=== PATIENT | male | born 1970 | race Hispanic/Latino ===

== ENCOUNTER 2021-05-11 14:50 | Inpatient (IN) | payer BC ==
[~2021-05-11] VITALS: Ht 165.1 cm; Wt 124.7 kg
[2021-05-11 15:08] VITALS: BP 142/65
[2021-05-11 15:17] LABS: BASOPHILS % (AUTO) 0.2 % (0.0-5.0); EOSINOPHILS % (AUTO) 0.6 % (0.0-8.0); HEMATOCRIT 36.7 % (42-54); MEAN CORPUSCULAR HEMOGLOBIN 27.7 pg (27.0-33.0); MEAN CORPUSCULAR HGB CONC 33.5 g/dL (32.0-36.0); MEAN CORPUSCULAR VOLUME 82.7 fL (79-99); MONOCYTES % (AUTO) 9.4 % (3.0-13.0); NUCLEATED RED BLOOD CELLS 0.4 % (0.0-0.19); PLATELET COUNT (AUTO) 335 K/uL (130-400); RED BLOOD CELL COUNT(AUTO) 4.44 MIL/uL (4.50-6.20); RED CELL DISTRIBUTION WIDTH 13.2 % (11.0-15.5); WHITE BLOOD COUNT (AUTO) 12.9 K/uL (4.8-10.8)
[2021-05-11 15:39] LABS: ALBUMIN 2.9 g/dL (3.5-5.0); BILIRUBIN,DIRECT 0.1 mg/dL (0.0-0.3); BILIRUBIN,TOTAL 0.4 mg/dL (0.2-1.0); CREATININE 1.9 mg/dL (0.5-1.5); CRP QUANTITATIVE 137.2 mg/L (0.00-9.0); POTASSIUM 4.3 mmol/L (3.5-5.1); TOTAL PROTEIN, SERUM 7.4 g/dL (6.0-8.3)
[2021-05-11 16:25] LABS: ABG BASE EXCESS -0.9 mmol/L (-2.0-3.0); ABG HCO3 23.1 mmol/L (21.0-28.0); ABG OXYGEN SATURATION 98.6 % (95.0-99.0); ABG PCO2 36 mmHg (35-48)
[2021-05-11] MEDS ORDERED: ALBUTEROL INHALER 90MCG/INH IH PRN (16:30)
[2021-05-11 16:31] LABS: ERYTHROCYTE SEDIMENTATION RATE 75 MM/HR (0-20)
[2021-05-11] MEDS ORDERED: 0.9% NACL 250ML IV ONE (17:00)
[2021-05-11] MEDS ORDERED: PIP/TAZ ZOSYN 3.375G 3.375 GM VIAL IVPB ONE (17:00)
[2021-05-11] MEDS ORDERED: DOXYCYCLINE 100MG IVPB (VIAL) IVPB ONE (17:00)
[2021-05-11] MEDS ORDERED: ZOSYN 3.375GM+NS 50ML 50 ML IV ONE (17:03)
[2021-05-11] MEDS ORDERED: DOXYCYCLINE 100MG+NS 250ML 250 ML IV ONE (17:04)
[2021-05-11 17:18] VITALS: BP 136/78
[2021-05-11] MEDS ORDERED: INSULIN GLARGINE 100 UNITS/ML 10 ML VIAL SQ ONE (18:00)
[2021-05-11] MEDS ORDERED: RENAL DOSE IV SCH (18:00)
[2021-05-11 18:54] LABS: CREATININE,URINE RANDOM 87 mg/dL (30-135); SODIUM,URINE RANDOM 31 mmol/l (40-220)
[2021-05-11 21:12] VITALS: BP 153/98
[2021-05-11] MEDS: INSULIN HUMULIN R 100 UNIT/ML 3ML SQ SCH (22:46)
[2021-05-11 22:47] VITALS: BP 147/92
[2021-05-11] MEDS: HEPARIN 5,000 UNIT VIAL SQ SCH (22:47)
[2021-05-11 23:01] LABS: AMPHET/METH SCREEN,URINE NEGATIVE (NEGATIVE); BARBITURATE SCREEN, URINE NEGATIVE (NEGATIVE); BENZODIAZEPINES SCREEN,URINE NEGATIVE (NEGATIVE); CANNABINOID SCREEN,URINE NEGATIVE (NEGATIVE); COCAINE SCREEN,URINE NEGATIVE (NEGATIVE); OPIATE SCREEN,URINE NEGATIVE (NEGATIVE); PHENCYCLIDINE SCREEN,URINE NEGATIVE (NEGATIVE)
[2021-05-12] VITALS (12 sets, daily range): BP systolic 125–162; BP diastolic 65–93
[2021-05-12] MEDS: INSULIN HUMULIN R 100 UNIT/ML 3ML SQ SCH ×4 (00:45→19:46)
[2021-05-12] MEDS: DOXYCYCLINE 100MG+NS 250ML IV SCH ×2 (06:26→19:43)
[2021-05-12] MEDS: 0.9% NACL 250ML IVPB SCH ×2 (06:26→19:43)
[2021-05-12] MEDS: INSULIN GLARGINE 100 UNITS/ML 10 ML VIAL SQ SCH (08:22)
[2021-05-12] MEDS: HEPARIN 5,000 UNIT VIAL SQ SCH (08:22)
[2021-05-12 09:21] LABS: BASOPHILS % (AUTO) 0.2 % (0.0-5.0); EOSINOPHILS % (AUTO) 0.1 % (0.0-8.0); HEMATOCRIT 38.6 % (42-54); LYMPHOCYTES % (AUTO) 5.8 % (21.0-51.0); MEAN CORPUSCULAR HEMOGLOBIN 27.6 pg (27.0-33.0); MEAN CORPUSCULAR HGB CONC 32.9 g/dL (32.0-36.0); MEAN CORPUSCULAR VOLUME 83.9 fL (79-99); MONOCYTES % (AUTO) 7.7 % (3.0-13.0); NEUTROPHILS % (AUTO) 84.2 % (40.0-77.0); NUCLEATED RED BLOOD CELLS 0.4 % (0.0-0.19); PLATELET COUNT (AUTO) 366 K/uL (130-400); RED CELL DISTRIBUTION WIDTH 13.2 % (11.0-15.5); WHITE BLOOD COUNT (AUTO) 12.3 K/uL (4.8-10.8)
[2021-05-12 09:49] LABS: CREATININE 1.5 mg/dL (0.5-1.5); CRP QUANTITATIVE 155.8 mg/L (0.00-9.0)
[2021-05-12 09:52] LABS: POTASSIUM 3.8 mmol/L (3.5-5.1)
[2021-05-12] MEDS ORDERED: HEPARIN 5,000 UNIT VIAL SQ SCH (11:00)
[2021-05-12] MEDS ORDERED: PHARMACY COMMUNICATION MISC SCH (11:00)
[2021-05-12] MEDS ORDERED: [UNRECOGNIZED DRUG - REMARK] MISC SCH (11:00)
[2021-05-12 11:09] LABS: HEMOGLOBIN A1C 12.6 % (4.0-6.0)
[2021-05-12] MEDS ORDERED: COMPOUND IV REFRIGERATED 1 EACH IVSOLN MISC PRN (11:30)
[2021-05-12] MEDS: DEXAMETHASONE SOD PHOSPHATE 4 MG/ML 1ML VIAL IV SCH ×2 (12:13→20:32)
[2021-05-12] MEDS: BARICITINIB (EUA) 2 MG TABLET PO SCH (12:13)
[2021-05-12] MEDS ORDERED: REMDESIVIR (EUA) 520 200 MG in 0.9% NACL 250ML 250 ML IV SCH (13:00)
[2021-05-12] MEDS ORDERED: AMLO-258 PO (18:49)
[2021-05-12] MEDS ORDERED: SITA100T12 PO (18:49)
[2021-05-12] MEDS ORDERED: METF-444 PO (19:21)
[2021-05-12] MEDS ORDERED: AEC81 PO (19:23)
[2021-05-12] MEDS ORDERED: ROSU10TA28 PO (19:25)
[2021-05-12] MEDS ORDERED: HYDR-4154 PO (19:26)
[2021-05-12] MEDS ORDERED: ZINC220C6 PO (19:28)
[2021-05-13] VITALS (25 sets, daily range): BP systolic 116–147; BP diastolic 64–96
[2021-05-13] MEDS: INSULIN HUMULIN R 100 UNIT/ML 3ML SQ SCH ×5 (00:58→16:58)
[2021-05-13 04:45] LABS: BASOPHILS % (AUTO) 0.1 % (0.0-5.0); HEMATOCRIT 38.2 % (42-54); LYMPHOCYTES % (AUTO) 9.1 % (21.0-51.0); MEAN CORPUSCULAR HEMOGLOBIN 27.2 pg (27.0-33.0); MEAN CORPUSCULAR VOLUME 82.5 fL (79-99); MONOCYTES % (AUTO) 5.9 % (3.0-13.0); NEUTROPHILS % (AUTO) 81.5 % (40.0-77.0); PLATELET COUNT (AUTO) 395 K/uL (130-400); RED BLOOD CELL COUNT(AUTO) 4.63 MIL/uL (4.50-6.20); RED CELL DISTRIBUTION WIDTH 13.2 % (11.0-15.5); WHITE BLOOD COUNT (AUTO) 7.3 K/uL (4.8-10.8)
[2021-05-13 04:59] LABS: ALBUMIN 2.7 g/dL (3.5-5.0); BILIRUBIN,TOTAL 0.6 mg/dL (0.2-1.0); CREATININE 1.4 mg/dL (0.5-1.5); CRP QUANTITATIVE 368.8 mg/L (0.00-9.0); POTASSIUM 4.2 mmol/L (3.5-5.1); TOTAL PROTEIN, SERUM 7.3 g/dL (6.0-8.3)
[2021-05-13] MEDS: 0.9% NACL 250ML IVPB SCH ×2 (05:04→16:58)
[2021-05-13] MEDS: DOXYCYCLINE 100MG+NS 250ML IV SCH ×2 (05:04→16:58)
[2021-05-13] MEDS: REMDESIVIR LABS MISC SCH (05:05)
[2021-05-13] MEDS: DEXAMETHASONE SOD PHOSPHATE 4 MG/ML 1ML VIAL IV SCH ×2 (08:14→20:47)
[2021-05-13] MEDS: BARICITINIB (EUA) 2 MG TABLET PO SCH (08:14)
[2021-05-13] MEDS: ENOXAPARIN SODIUM 60 MG/0.6 ML SQ SCH (08:15)
[2021-05-13] MEDS: INSULIN GLARGINE 100 UNITS/ML 10 ML VIAL SQ SCH (08:16)
[2021-05-13] MEDS ORDERED: FUROSEMIDE 20MG VIAL IV ONE (11:55)
[2021-05-13] MEDS: REMDESIVIR (EUA) 520 100 MG in 0.9% NACL 250ML 250 ML IV SCH (12:31)
[2021-05-13] MEDS ORDERED: NACL NASAL SPRAY 120 SPRAY/BOTTLE NS PRN (14:30)
[2021-05-14] VITALS (24 sets, daily range): BP systolic 109–144; BP diastolic 58–92
[2021-05-14] MEDS: INSULIN HUMULIN R 100 UNIT/ML 3ML SQ SCH ×5 (05:53→22:15)
[2021-05-14] MEDS: 0.9% NACL 250ML IVPB SCH ×2 (05:55→17:10)
[2021-05-14] MEDS: DOXYCYCLINE 100MG+NS 250ML IV SCH ×2 (05:55→17:10)
[2021-05-14] MEDS: REMDESIVIR LABS MISC SCH (06:00)
[2021-05-14 07:02] LABS: BASOPHILS % (AUTO) 0.1 % (0.0-5.0); LYMPHOCYTES % (AUTO) 6.8 % (21.0-51.0); MEAN CORPUSCULAR HGB CONC 32.2 g/dL (32.0-36.0); MEAN CORPUSCULAR VOLUME 84.1 fL (79-99); MONOCYTES % (AUTO) 8.9 % (3.0-13.0); NEUTROPHILS % (AUTO) 82.3 % (40.0-77.0); PLATELET COUNT (AUTO) 342 K/uL (130-400); RED CELL DISTRIBUTION WIDTH 13.4 % (11.0-15.5); WHITE BLOOD COUNT (AUTO) 10.1 K/uL (4.8-10.8)
[2021-05-14 07:17] LABS: ALBUMIN 2.5 g/dL (3.5-5.0); BILIRUBIN,TOTAL 0.6 mg/dL (0.2-1.0); CREATININE 1.4 mg/dL (0.5-1.5); CRP QUANTITATIVE 107.7 mg/L (0.00-9.0); POTASSIUM 4.1 mmol/L (3.5-5.1); TOTAL PROTEIN, SERUM 6.7 g/dL (6.0-8.3)
[2021-05-14] MEDS: BARICITINIB (EUA) 2 MG TABLET PO SCH (08:08)
[2021-05-14] MEDS: DEXAMETHASONE SOD PHOSPHATE 4 MG/ML 1ML VIAL IV SCH ×2 (08:08→22:09)
[2021-05-14] MEDS: ENOXAPARIN SODIUM 60 MG/0.6 ML SQ SCH (08:09)
[2021-05-14] MEDS: INSULIN GLARGINE 100 UNITS/ML 10 ML VIAL SQ SCH (08:11)
[2021-05-14] MEDS ORDERED: LACTULOSE 20 GM/30 ML UDCUP PO PRN (13:00)
[2021-05-14] MEDS: REMDESIVIR (EUA) 520 100 MG in 0.9% NACL 250ML 250 ML IV SCH (13:11)
[2021-05-14] MEDS: ENOXAPARIN SODIUM 100 MG/1 ML SQ SCH (22:08)
[2021-05-15] VITALS (22 sets, daily range): BP systolic 109–167; BP diastolic 61–96
[2021-05-15 05:21] LABS: BASOPHILS % (AUTO) 0.1 % (0.0-5.0); HEMATOCRIT 35.4 % (42-54); LYMPHOCYTES % (AUTO) 4.4 % (21.0-51.0); MEAN CORPUSCULAR HEMOGLOBIN 27.3 pg (27.0-33.0); MEAN CORPUSCULAR HGB CONC 32.2 g/dL (32.0-36.0); MEAN CORPUSCULAR VOLUME 84.7 fL (79-99); MONOCYTES % (AUTO) 7.8 % (3.0-13.0); NEUTROPHILS % (AUTO) 86.1 % (40.0-77.0); PLATELET COUNT (AUTO) 319 K/uL (130-400); RED BLOOD CELL COUNT(AUTO) 4.18 MIL/uL (4.50-6.20); RED CELL DISTRIBUTION WIDTH 13.1 % (11.0-15.5); WHITE BLOOD COUNT (AUTO) 11.1 K/uL (4.8-10.8)
[2021-05-15 05:38] LABS: ALBUMIN 2.4 g/dL (3.5-5.0); BILIRUBIN,TOTAL 0.6 mg/dL (0.2-1.0); CREATININE 1.2 mg/dL (0.5-1.5); CRP QUANTITATIVE 52.9 mg/L (0.00-9.0); POTASSIUM 4.2 mmol/L (3.5-5.1); TOTAL PROTEIN, SERUM 6.2 g/dL (6.0-8.3)
[2021-05-15] MEDS: INSULIN HUMULIN R 100 UNIT/ML 3ML SQ SCH ×4 (06:02→20:37)
[2021-05-15] MEDS: DOXYCYCLINE 100MG+NS 250ML IV SCH ×2 (06:02→17:07)
[2021-05-15] MEDS: 0.9% NACL 250ML IVPB SCH ×2 (06:03→17:07)
[2021-05-15] MEDS: DEXAMETHASONE SOD PHOSPHATE 4 MG/ML 1ML VIAL IV SCH ×2 (08:21→20:34)
[2021-05-15] MEDS: BARICITINIB (EUA) 2 MG TABLET PO SCH (08:21)
[2021-05-15] MEDS: ENOXAPARIN SODIUM 100 MG/1 ML SQ SCH ×2 (08:21→20:35)
[2021-05-15] MEDS: INSULIN GLARGINE 100 UNITS/ML 10 ML VIAL SQ SCH (08:44)
[2021-05-15] MEDS ORDERED: LACTULOSE 20 GM/30 ML UDCUP PO SCH (09:00)
[2021-05-15] MEDS: REMDESIVIR LABS MISC SCH (14:00)
[2021-05-15] MEDS: REMDESIVIR (EUA) 520 100 MG in 0.9% NACL 250ML 250 ML IV SCH (14:21)
[2021-05-16] VITALS (23 sets, daily range): BP systolic 129–178; BP diastolic 67–97
[2021-05-16 04:55] LABS: BASOPHILS % (AUTO) 0.2 % (0.0-5.0); LYMPHOCYTES % (AUTO) 2.9 % (21.0-51.0); MEAN CORPUSCULAR HEMOGLOBIN 27.2 pg (27.0-33.0); MEAN CORPUSCULAR HGB CONC 32.4 g/dL (32.0-36.0); MEAN CORPUSCULAR VOLUME 84.1 fL (79-99); MONOCYTES % (AUTO) 7.4 % (3.0-13.0); NEUTROPHILS % (AUTO) 88.4 % (40.0-77.0); PLATELET COUNT (AUTO) 334 K/uL (130-400); RED BLOOD CELL COUNT(AUTO) 4.52 MIL/uL (4.50-6.20); RED CELL DISTRIBUTION WIDTH 13.2 % (11.0-15.5); WHITE BLOOD COUNT (AUTO) 13.2 K/uL (4.8-10.8)
[2021-05-16 05:17] LABS: ALBUMIN 2.5 g/dL (3.5-5.0); BILIRUBIN,TOTAL 0.7 mg/dL (0.2-1.0); CREATININE 1.1 mg/dL (0.5-1.5); POTASSIUM 4.3 mmol/L (3.5-5.1); TOTAL PROTEIN, SERUM 6.4 g/dL (6.0-8.3)
[2021-05-16] MEDS: 0.9% NACL 250ML IVPB SCH ×2 (06:25→17:42)
[2021-05-16] MEDS: DOXYCYCLINE 100MG+NS 250ML IV SCH ×2 (06:25→17:42)
[2021-05-16] MEDS: INSULIN HUMULIN R 100 UNIT/ML 3ML SQ SCH ×4 (06:26→20:27)
[2021-05-16] MEDS: REMDESIVIR LABS MISC SCH (06:26)
[2021-05-16] MEDS: BARICITINIB (EUA) 2 MG TABLET PO SCH (08:20)
[2021-05-16] MEDS: DEXAMETHASONE SOD PHOSPHATE 4 MG/ML 1ML VIAL IV SCH (08:20)
[2021-05-16] MEDS: ENOXAPARIN SODIUM 100 MG/1 ML SQ SCH ×2 (08:20→19:59)
[2021-05-16] MEDS: INSULIN GLARGINE 100 UNITS/ML 10 ML VIAL SQ SCH (08:35)
[2021-05-16] MEDS: REMDESIVIR (EUA) 520 100 MG in 0.9% NACL 250ML 250 ML IV SCH (13:34)
[2021-05-17] VITALS (24 sets, daily range): BP systolic 128–166; BP diastolic 52–112
[2021-05-17 04:58] LABS: BASOPHILS % (AUTO) 0.1 % (0.0-5.0); EOSINOPHILS % (AUTO) 0.6 % (0.0-8.0); HEMATOCRIT 38.7 % (42-54); LYMPHOCYTES % (AUTO) 3.1 % (21.0-51.0); MEAN CORPUSCULAR HEMOGLOBIN 27.4 pg (27.0-33.0); MEAN CORPUSCULAR HGB CONC 33.3 g/dL (32.0-36.0); MEAN CORPUSCULAR VOLUME 82.2 fL (79-99); MONOCYTES % (AUTO) 4.5 % (3.0-13.0); NEUTROPHILS % (AUTO) 90.6 % (40.0-77.0); PLATELET COUNT (AUTO) 305 K/uL (130-400); RED BLOOD CELL COUNT(AUTO) 4.71 MIL/uL (4.50-6.20); RED CELL DISTRIBUTION WIDTH 13.1 % (11.0-15.5); WHITE BLOOD COUNT (AUTO) 16.2 K/uL (4.8-10.8)
[2021-05-17 05:17] LABS: ALBUMIN 2.5 g/dL (3.5-5.0); BILIRUBIN,TOTAL 0.7 mg/dL (0.2-1.0); CRP QUANTITATIVE 64.7 mg/L (0.00-9.0); POTASSIUM 3.7 mmol/L (3.5-5.1); TOTAL PROTEIN, SERUM 6.5 g/dL (6.0-8.3)
[2021-05-17] MEDS: INSULIN HUMULIN R 100 UNIT/ML 3ML SQ SCH ×4 (05:58→21:10)
[2021-05-17] MEDS: 0.9% NACL 250ML IVPB SCH ×2 (05:58→17:13)
[2021-05-17] MEDS: DOXYCYCLINE 100MG+NS 250ML IV SCH ×2 (05:58→17:12)
[2021-05-17] MEDS: BARICITINIB (EUA) 2 MG TABLET PO SCH (09:00)
[2021-05-17] MEDS: INSULIN GLARGINE 100 UNITS/ML 10 ML VIAL SQ SCH (09:00)
[2021-05-17] MEDS: DEXAMETHASONE SOD PHOSPHATE 4 MG/ML 1ML VIAL IV SCH (09:00)
[2021-05-17] MEDS: ENOXAPARIN SODIUM 100 MG/1 ML SQ SCH ×2 (09:00→21:10)
[2021-05-17] MEDS: GUAIFENESIN-CODEINE 5 ML SYRUP PO PRN (21:09)
[2021-05-18] VITALS (24 sets, daily range): BP systolic 111–158; BP diastolic 64–99
[2021-05-18 05:06] LABS: BASOPHILS % (AUTO) 0.1 % (0.0-5.0); HEMATOCRIT 38.6 % (42-54); LYMPHOCYTES % (AUTO) 6.6 % (21.0-51.0); MEAN CORPUSCULAR HEMOGLOBIN 27.6 pg (27.0-33.0); MEAN CORPUSCULAR HGB CONC 33.2 g/dL (32.0-36.0); MEAN CORPUSCULAR VOLUME 83.2 fL (79-99); MONOCYTES % (AUTO) 4.3 % (3.0-13.0); PLATELET COUNT (AUTO) 276 K/uL (130-400); RED BLOOD CELL COUNT(AUTO) 4.64 MIL/uL (4.50-6.20); RED CELL DISTRIBUTION WIDTH 13.4 % (11.0-15.5)
[2021-05-18 05:27] LABS: ALBUMIN 2.2 g/dL (3.5-5.0); POTASSIUM 3.9 mmol/L (3.5-5.1); TOTAL PROTEIN, SERUM 6.3 g/dL (6.0-8.3)
[2021-05-18] MEDS: 0.9% NACL 250ML IVPB SCH ×2 (05:43→17:18)
[2021-05-18] MEDS: DOXYCYCLINE 100MG+NS 250ML IV SCH (05:43)
[2021-05-18 05:46] LABS: CRP QUANTITATIVE 202.1 mg/L (0.00-9.0)
[2021-05-18] MEDS: INSULIN HUMULIN R 100 UNIT/ML 3ML SQ SCH ×4 (06:03→20:33)
[2021-05-18] MEDS: DEXAMETHASONE SOD PHOSPHATE 4 MG/ML 1ML VIAL IV SCH (09:10)
[2021-05-18] MEDS: BARICITINIB (EUA) 2 MG TABLET PO SCH (09:10)
[2021-05-18] MEDS: ENOXAPARIN SODIUM 100 MG/1 ML SQ SCH ×2 (09:10→19:54)
[2021-05-18] MEDS: INSULIN GLARGINE 100 UNITS/ML 10 ML VIAL SQ SCH (09:12)
[2021-05-18] MEDS ORDERED: PHARMACY COMMUNICATION MISC SCH (15:30)
[2021-05-18] MEDS: LINEZOLID 600 MG/ISO-OSM 300 ML IV SCH (15:56)
[2021-05-18] MEDS: MEROPENEM 1 GM VIAL IVP SCH (15:56)
[2021-05-18] MEDS: REMDESIVIR (EUA) 520 100 MG in 0.9% NACL 250ML 250 ML IV SCH (17:17)
[2021-05-18] MEDS: GUAIFENESIN-CODEINE 5 ML SYRUP PO PRN (19:54)
[2021-05-18] MEDS: SOLU-MEDROL 40MG VIAL IVP SCH (19:54)
[2021-05-19] VITALS (24 sets, daily range): BP systolic 132–168; BP diastolic 56–107
[2021-05-19] MEDS: LINEZOLID 600 MG/ISO-OSM 300 ML IV SCH ×2 (04:05→15:07)
[2021-05-19] MEDS: MEROPENEM 1 GM VIAL IVP SCH ×2 (04:05→15:07)
[2021-05-19 05:11] LABS: BASOPHILS % (AUTO) 0.2 % (0.0-5.0); HEMATOCRIT 36.7 % (42-54); LYMPHOCYTES % (AUTO) 2.7 % (21.0-51.0); MEAN CORPUSCULAR HEMOGLOBIN 27.6 pg (27.0-33.0); MEAN CORPUSCULAR VOLUME 83.8 fL (79-99); MONOCYTES % (AUTO) 3.6 % (3.0-13.0); NEUTROPHILS % (AUTO) 92.6 % (40.0-77.0); PLATELET COUNT (AUTO) 301 K/uL (130-400); RED BLOOD CELL COUNT(AUTO) 4.38 MIL/uL (4.50-6.20); RED CELL DISTRIBUTION WIDTH 13.3 % (11.0-15.5); WHITE BLOOD COUNT (AUTO) 18.5 K/uL (4.8-10.8)
[2021-05-19 05:29] LABS: ALBUMIN 2.1 g/dL (3.5-5.0); BILIRUBIN,TOTAL 0.7 mg/dL (0.2-1.0); CREATININE 1.2 mg/dL (0.5-1.5); CRP QUANTITATIVE 144.9 mg/L (0.00-9.0); POTASSIUM 4.4 mmol/L (3.5-5.1)
[2021-05-19] MEDS: 0.9% NACL 250ML IVPB SCH ×2 (06:00→18:00)
[2021-05-19] MEDS: INSULIN HUMULIN R 100 UNIT/ML 3ML SQ SCH ×8 (06:25→22:32)
[2021-05-19] MEDS: ENOXAPARIN SODIUM 100 MG/1 ML SQ SCH ×2 (09:19→22:29)
[2021-05-19] MEDS: SOLU-MEDROL 40MG VIAL IVP SCH ×2 (09:19→22:28)
[2021-05-19] MEDS: BARICITINIB (EUA) 2 MG TABLET PO SCH (09:19)
[2021-05-19] MEDS: REMDESIVIR (EUA) 520 100 MG in 0.9% NACL 250ML 250 ML IV SCH (15:31)
[2021-05-19] MEDS: GUAIFENESIN-CODEINE 5 ML SYRUP PO PRN ×2 (18:24→22:35)
[2021-05-19] MEDS: INSULIN GLARGINE 100 UNITS/ML 10 ML VIAL SQ SCH (22:31)
[2021-05-20] VITALS (13 sets, daily range): BP systolic 132–173; BP diastolic 60–110
[2021-05-20] MEDS: MEROPENEM 1 GM VIAL IVP SCH ×2 (02:51→15:16)
[2021-05-20] MEDS: LINEZOLID 600 MG/ISO-OSM 300 ML IV SCH ×2 (02:51→15:16)
[2021-05-20 04:40] LABS: BASOPHILS % (AUTO) 0.1 % (0.0-5.0); HEMATOCRIT 34.1 % (42-54); LYMPHOCYTES % (AUTO) 2.6 % (21.0-51.0); MEAN CORPUSCULAR HEMOGLOBIN 27.8 pg (27.0-33.0); MEAN CORPUSCULAR HGB CONC 33.4 g/dL (32.0-36.0); MEAN CORPUSCULAR VOLUME 83.2 fL (79-99); MONOCYTES % (AUTO) 4.2 % (3.0-13.0); NEUTROPHILS % (AUTO) 91.9 % (40.0-77.0); PLATELET COUNT (AUTO) 302 K/uL (130-400); RED CELL DISTRIBUTION WIDTH 13.4 % (11.0-15.5); WHITE BLOOD COUNT (AUTO) 18.4 K/uL (4.8-10.8)
[2021-05-20 05:30] LABS: ALBUMIN 2.1 g/dL (3.5-5.0); BILIRUBIN,TOTAL 0.6 mg/dL (0.2-1.0); CREATININE 1.2 mg/dL (0.5-1.5); POTASSIUM 4.2 mmol/L (3.5-5.1); TOTAL PROTEIN, SERUM 5.9 g/dL (6.0-8.3)
[2021-05-20] MEDS: 0.9% NACL 250ML IVPB SCH ×2 (06:00→17:42)
[2021-05-20] MEDS: INSULIN HUMULIN R 100 UNIT/ML 3ML SQ SCH ×7 (06:08→21:00)
[2021-05-20] MEDS: BARICITINIB (EUA) 2 MG TABLET PO SCH (10:41)
[2021-05-20] MEDS: SOLU-MEDROL 40MG VIAL IVP SCH ×2 (10:41→21:33)
[2021-05-20] MEDS: ENOXAPARIN SODIUM 100 MG/1 ML SQ SCH ×2 (10:42→21:32)
[2021-05-20] MEDS ORDERED: DEXMEDETOMIDINE HCL 400 MCG in 0.9%NACL 100ML 100 ML IV SCH (13:00)
[2021-05-20] MEDS: REMDESIVIR (EUA) 520 100 MG in 0.9% NACL 250ML 250 ML IV SCH (17:31)
[2021-05-20] MEDS: GUAIFENESIN-CODEINE 5 ML SYRUP PO PRN (21:31)
[2021-05-20] MEDS: INSULIN GLARGINE 100 UNITS/ML 10 ML VIAL SQ SCH (21:33)
[2021-05-21] VITALS (22 sets, daily range): BP systolic 145–196; BP diastolic 69–114
[2021-05-21] MEDS: LINEZOLID 600 MG/ISO-OSM 300 ML IV SCH ×2 (02:27→15:21)
[2021-05-21] MEDS: MEROPENEM 1 GM VIAL IVP SCH ×2 (02:29→15:21)
[2021-05-21] MEDS: GUAIFENESIN-CODEINE 5 ML SYRUP PO PRN ×2 (02:39→23:11)
[2021-05-21 05:39] LABS: BASOPHILS % (AUTO) 0.2 % (0.0-5.0); HEMATOCRIT 35.7 % (42-54); LYMPHOCYTES % (AUTO) 2.8 % (21.0-51.0); MEAN CORPUSCULAR HEMOGLOBIN 27.8 pg (27.0-33.0); MEAN CORPUSCULAR HGB CONC 33.3 g/dL (32.0-36.0); MEAN CORPUSCULAR VOLUME 83.4 fL (79-99); MONOCYTES % (AUTO) 5.4 % (3.0-13.0); NEUTROPHILS % (AUTO) 90.5 % (40.0-77.0); PLATELET COUNT (AUTO) 291 K/uL (130-400); RED BLOOD CELL COUNT(AUTO) 4.28 MIL/uL (4.50-6.20); RED CELL DISTRIBUTION WIDTH 13.3 % (11.0-15.5); WHITE BLOOD COUNT (AUTO) 19.3 K/uL (4.8-10.8)
[2021-05-21] MEDS: 0.9% NACL 250ML IVPB SCH ×2 (06:00→17:30)
[2021-05-21 06:01] LABS: ALBUMIN 2.2 g/dL (3.5-5.0); BILIRUBIN,TOTAL 0.6 mg/dL (0.2-1.0); CREATININE 1.1 mg/dL (0.5-1.5); CRP QUANTITATIVE 44.8 mg/L (0.00-9.0); POTASSIUM 4.7 mmol/L (3.5-5.1)
[2021-05-21] MEDS: INSULIN HUMULIN R 100 UNIT/ML 3ML SQ SCH ×7 (06:27→21:05)
[2021-05-21] MEDS: BARICITINIB (EUA) 2 MG TABLET PO SCH (09:15)
[2021-05-21] MEDS: SOLU-MEDROL 40MG VIAL IVP SCH ×2 (09:16→21:06)
[2021-05-21] MEDS: ENOXAPARIN SODIUM 100 MG/1 ML SQ SCH ×2 (09:16→21:06)
[2021-05-21] MEDS: REMDESIVIR (EUA) 520 100 MG in 0.9% NACL 250ML 250 ML IV SCH (15:21)
[2021-05-21] MEDS: LOPERAMIDE 1 MG/7.5 ML UDCUP PO PRN ×2 (16:21→23:10)
[2021-05-21] MEDS: INSULIN GLARGINE 100 UNITS/ML 10 ML VIAL SQ SCH (21:05)
[2021-05-21] MEDS: METOPROLOL TARTRATE 25 MG TAB PO SCH (21:06)
[2021-05-22] VITALS (29 sets, daily range): BP systolic 137–186; BP diastolic 58–106
[2021-05-22] MEDS: MEROPENEM 1 GM VIAL IVP SCH ×2 (02:59→16:11)
[2021-05-22] MEDS: LINEZOLID 600 MG/ISO-OSM 300 ML IV SCH ×2 (02:59→16:12)
[2021-05-22] MEDS: 0.9% NACL 250ML IVPB SCH ×2 (06:00→18:00)
[2021-05-22] MEDS: INSULIN HUMULIN R 100 UNIT/ML 3ML SQ SCH ×7 (06:11→20:02)
[2021-05-22] MEDS ORDERED: [UNRECOGNIZED DRUG - REMARK] MISC STA (08:02)
[2021-05-22] MEDS: ASPIRIN 81MG CHEW TAB PO SCH (09:06)
[2021-05-22] MEDS: METOPROLOL TARTRATE 25 MG TAB PO SCH ×2 (09:06→20:02)
[2021-05-22] MEDS: LOSARTAN 25 MG TABLET PO SCH (09:06)
[2021-05-22] MEDS: BARICITINIB (EUA) 2 MG TABLET PO SCH (09:06)
[2021-05-22] MEDS: SOLU-MEDROL 40MG VIAL IVP SCH (09:06)
[2021-05-22] MEDS: ENOXAPARIN SODIUM 100 MG/1 ML SQ SCH ×2 (09:10→20:01)
[2021-05-22] MEDS: LOPERAMIDE 1 MG/7.5 ML UDCUP PO PRN (10:55)
[2021-05-22 12:16] LABS: HEMATOCRIT 35.7 % (42-54); MEAN CORPUSCULAR HEMOGLOBIN 27.5 pg (27.0-33.0); MEAN CORPUSCULAR HGB CONC 33.3 g/dL (32.0-36.0); MEAN CORPUSCULAR VOLUME 82.6 fL (79-99); PLATELET COUNT (AUTO) 259 K/uL (130-400); RED BLOOD CELL COUNT(AUTO) 4.32 MIL/uL (4.50-6.20); RED CELL DISTRIBUTION WIDTH 13.2 % (11.0-15.5)
[2021-05-22 12:28] LABS: POTASSIUM 4.4 mmol/L (3.5-5.1)
[2021-05-22 12:34] LABS: ALBUMIN 2.3 g/dL (3.5-5.0); BILIRUBIN,DIRECT 0.2 mg/dL (0.0-0.3); BILIRUBIN,TOTAL 0.6 mg/dL (0.2-1.0)
[2021-05-22 13:37] LABS: LYMPHOCYTES % (MANUAL) 2 % (22-44); MONOCYTES % (MANUAL) 1 % (2-9); PLATELET MORPHOLOGY COMMENT ADEQUATE; SEGMENTED NEUTROPHILS % 97 % (40-70)
[2021-05-22 13:39] LABS: MAN.DIFF COMMENT-IMPRESSION MANUAL DIFFERENTIAL
[2021-05-22] MEDS: REMDESIVIR (EUA) 520 100 MG in 0.9% NACL 250ML 250 ML IV SCH (17:31)
[2021-05-22] MEDS ORDERED: OXYMETAZOLINE HCL SPRAY 15 ML BOTTLE EN PRN (19:30)
[2021-05-22] MEDS: INSULIN GLARGINE 100 UNITS/ML 10 ML VIAL SQ SCH (20:04)
[2021-05-22] MEDS ORDERED: DEXMEDETOMIDINE HCL 200 MCG/2 ML VIAL IV ONE (23:13)
[2021-05-22] MEDS ORDERED: 0.9%NACL 100ML 100 ML ONE (23:18)
[2021-05-22 23:51] LABS: ABG BASE EXCESS -1.8 mmol/L (-2.0-3.0); ABG HCO3 22.7 mmol/L (21.0-28.0); ABG OXYGEN SATURATION 74.3 % (95.0-99.0); ABG PCO2 38 mmHg (35-48)
[2021-05-23] VITALS (87 sets, daily range): BP systolic 66–209; BP diastolic 31–124
[2021-05-23] MEDS: MEROPENEM 1 GM VIAL IVP SCH ×2 (03:31→16:13)
[2021-05-23] MEDS: LINEZOLID 600 MG/ISO-OSM 300 ML IV SCH ×2 (03:31→16:13)
[2021-05-23] MEDS ORDERED: DEXMEDETOMIDINE HCL 200 MCG/2 ML VIAL IV ONE (03:44)
[2021-05-23] MEDS ORDERED: 0.9%NACL 100ML 100 ML ONE (03:44)
[2021-05-23 03:57] LABS: ABG HCO3 23.4 mmol/L (21.0-28.0); ABG OXYGEN SATURATION 69.7 % (95.0-99.0); ABG PCO2 42 mmHg (35-48)
[2021-05-23] MEDS ORDERED: PROPOFOL 1000 MG/100 ML 100 ML IV ONE (04:23)
[2021-05-23 05:17] LABS: BASOPHILS % (AUTO) 0.1 % (0.0-5.0); EOSINOPHILS % (AUTO) 1.1 % (0.0-8.0); HEMATOCRIT 36.5 % (42-54); LYMPHOCYTES % (AUTO) 5.5 % (21.0-51.0); MEAN CORPUSCULAR HEMOGLOBIN 27.5 pg (27.0-33.0); MEAN CORPUSCULAR HGB CONC 32.1 g/dL (32.0-36.0); MEAN CORPUSCULAR VOLUME 85.7 fL (79-99); MONOCYTES % (AUTO) 4.9 % (3.0-13.0); NEUTROPHILS % (AUTO) 87.1 % (40.0-77.0); PLATELET COUNT (AUTO) 286 K/uL (130-400); RED BLOOD CELL COUNT(AUTO) 4.26 MIL/uL (4.50-6.20); RED CELL DISTRIBUTION WIDTH 13.6 % (11.0-15.5); WHITE BLOOD COUNT (AUTO) 20.4 K/uL (4.8-10.8)
[2021-05-23] MEDS ORDERED: FENTANYL 2500MCG+NS 250ML 250 ML IV ONE ×2 (05:18→16:53)
[2021-05-23 05:30] LABS: CREATININE 1.2 mg/dL (0.5-1.5); CRP QUANTITATIVE 44.6 mg/L (0.00-9.0); POTASSIUM 4.2 mmol/L (3.5-5.1)
[2021-05-23] MEDS ORDERED: MIDAZOLAM 50MG-0.9% NS 50ML 50 ML IV SCH (05:30)
[2021-05-23] MEDS ORDERED: FENTANYL 1000MCG+NS 100ML 100 ML IV SCH (05:30)
[2021-05-23] MEDS: 0.9% NACL 250ML IVPB SCH ×2 (06:00→18:00)
[2021-05-23] MEDS: INSULIN HUMULIN R 100 UNIT/ML 3ML SQ SCH ×7 (06:50→20:34)
[2021-05-23] MEDS: PROPOFOL 1000 MG/100 ML IV PRN ×5 (07:10→20:39)
[2021-05-23] MEDS: CISATRACURIUM BESYLATE 100 MG in 0.9%NACL 100ML 100 ML IV SCH ×2 (08:12→13:08)
[2021-05-23 08:30] LABS: ABG BASE EXCESS -3.6 mmol/L (-2.0-3.0); ABG HCO3 24.3 mmol/L (21.0-28.0); ABG OXYGEN SATURATION 94.2 % (95.0-99.0); ABG PCO2 57 mmHg (35-48)
[2021-05-23] MEDS: METOPROLOL TARTRATE 25 MG TAB PO SCH ×2 (09:00→20:34)
[2021-05-23] MEDS: LOSARTAN 25 MG TABLET PO SCH (09:00)
[2021-05-23] MEDS: BARICITINIB (EUA) 2 MG TABLET PO SCH (09:10)
[2021-05-23] MEDS: ASPIRIN 81MG CHEW TAB PO SCH (09:10)
[2021-05-23] MEDS: ENOXAPARIN SODIUM 100 MG/1 ML SQ SCH ×2 (09:11→20:35)
[2021-05-23] MEDS: NOREPINEPHRIN 4MG/NS 250ML 250 ML IV SCH ×2 (11:47→18:05)
[2021-05-23] MEDS: MIDAZOLAM 100MG-0.9% NS 100ML 100ML BAG IV PRN (13:06)
[2021-05-23 18:42] LABS: INR 1.05 (0.85-1.15); PROTHROMBIN TIME 11.4 SEC (9.6-11.6)
[2021-05-23] MEDS: SOLU-MEDROL 40MG VIAL IVP SCH (20:32)
[2021-05-23] MEDS: DOCUSATE NA 100MG/10ML UDCUP PO SCH (20:32)
[2021-05-23] MEDS: FAMOTIDINE 20MG VIAL IV SCH (20:33)
[2021-05-23] MEDS: INSULIN GLARGINE 100 UNITS/ML 10 ML VIAL SQ SCH (20:38)
[2021-05-24] VITALS (58 sets, daily range): BP systolic 96–142; BP diastolic 39–68
[2021-05-24] MEDS: CISATRACURIUM BESYLATE 100 MG in 0.9%NACL 100ML 100 ML IV SCH ×4 (00:32→17:34)
[2021-05-24] MEDS: PROPOFOL 1000 MG/100 ML IV PRN ×7 (00:33→18:51)
[2021-05-24] MEDS: MIDAZOLAM 100MG-0.9% NS 100ML 100ML BAG IV PRN ×4 (02:22→22:26)
[2021-05-24] MEDS: MEROPENEM 1 GM VIAL IVP SCH ×2 (02:23→15:08)
[2021-05-24] MEDS: LINEZOLID 600 MG/ISO-OSM 300 ML IV SCH ×2 (02:23→15:08)
[2021-05-24] MEDS: NOREPINEPHRIN 4MG/NS 250ML 250 ML IV SCH ×4 (02:23→21:46)
[2021-05-24 04:37] LABS: BASOPHILS % (AUTO) 0.2 % (0.0-5.0); EOSINOPHILS % (AUTO) 1.1 % (0.0-8.0); HEMATOCRIT 32.3 % (42-54); MEAN CORPUSCULAR HEMOGLOBIN 28.1 pg (27.0-33.0); MEAN CORPUSCULAR VOLUME 90.7 fL (79-99); MONOCYTES % (AUTO) 1.9 % (3.0-13.0); NEUTROPHILS % (AUTO) 92.7 % (40.0-77.0); PLATELET COUNT (AUTO) 251 K/uL (130-400); RED BLOOD CELL COUNT(AUTO) 3.56 MIL/uL (4.50-6.20); RED CELL DISTRIBUTION WIDTH 13.5 % (11.0-15.5); WHITE BLOOD COUNT (AUTO) 16.1 K/uL (4.8-10.8)
[2021-05-24 04:56] LABS: CREATININE 1.2 mg/dL (0.5-1.5); CRP QUANTITATIVE 127.3 mg/L (0.00-9.0); POTASSIUM 4.7 mmol/L (3.5-5.1)
[2021-05-24] MEDS: FENTANYL 2500MCG+NS 250ML 250 ML IV SCH ×3 (05:07→22:25)
[2021-05-24] MEDS: 0.9% NACL 250ML IVPB SCH ×2 (06:00→18:00)
[2021-05-24] MEDS: INSULIN HUMULIN R 100 UNIT/ML 3ML SQ SCH ×7 (06:41→20:50)
[2021-05-24 07:56] LABS: ABG BASE EXCESS -7.3 mmol/L (-2.0-3.0); ABG HCO3 23.3 mmol/L (21.0-28.0); ABG OXYGEN SATURATION 80.2 % (95.0-99.0); ABG PCO2 71 mmHg (35-48)
[2021-05-24 08:11] LABS: ABG BASE EXCESS -8.1 mmol/L (-2.0-3.0); ABG HCO3 22.1 mmol/L (21.0-28.0); ABG OXYGEN SATURATION 79.1 % (95.0-99.0); ABG PCO2 66 mmHg (35-48)
[2021-05-24] MEDS: LOSARTAN 25 MG TABLET PO SCH (09:00)
[2021-05-24] MEDS: FAMOTIDINE 20MG VIAL IV SCH ×2 (09:09→20:47)
[2021-05-24] MEDS: METOPROLOL TARTRATE 25 MG TAB PO SCH ×2 (09:10→20:48)
[2021-05-24] MEDS: DOCUSATE NA 100MG/10ML UDCUP PO SCH ×2 (09:10→20:48)
[2021-05-24] MEDS: SOLU-MEDROL 40MG VIAL IVP SCH ×2 (09:10→20:48)
[2021-05-24] MEDS: ASPIRIN 81MG CHEW TAB PO SCH (09:10)
[2021-05-24] MEDS: BARICITINIB (EUA) 2 MG TABLET PO SCH (09:10)
[2021-05-24] MEDS: ENOXAPARIN SODIUM 100 MG/1 ML SQ SCH ×2 (09:12→20:48)
[2021-05-24] MEDS: POLYETHYLENE GLYCOL 3350 17 GM POWD.PACK PO SCH (09:12)
[2021-05-24 12:08] LABS: ABG BASE EXCESS -3.2 mmol/L (-2.0-3.0); ABG HCO3 25.8 mmol/L (21.0-28.0); ABG OXYGEN SATURATION 86.2 % (95.0-99.0); ABG PCO2 64 mmHg (35-48)
[2021-05-24] MEDS: INSULIN GLARGINE 100 UNITS/ML 10 ML VIAL SQ SCH (20:49)
[2021-05-25] VITALS (84 sets, daily range): BP systolic 73–139; BP diastolic 39–66
[2021-05-25] MEDS: PROPOFOL 1000 MG/100 ML IV PRN ×5 (01:55→19:10)
[2021-05-25] MEDS: CISATRACURIUM BESYLATE 100 MG in 0.9%NACL 100ML 100 ML IV SCH ×2 (02:40→14:44)
[2021-05-25] MEDS: LINEZOLID 600 MG/ISO-OSM 300 ML IV SCH ×2 (03:16→16:00)
[2021-05-25] MEDS: MEROPENEM 1 GM VIAL IVP SCH ×2 (03:16→16:00)
[2021-05-25] MEDS: INSULIN HUMULIN R 100 UNIT/ML 3ML SQ SCH ×7 (05:31→20:10)
[2021-05-25] MEDS: 0.9% NACL 250ML IVPB SCH ×2 (06:00→18:00)
[2021-05-25 07:27] LABS: ABG BASE EXCESS -0.8 mmol/L (-2.0-3.0); ABG HCO3 26.3 mmol/L (21.0-28.0); ABG OXYGEN SATURATION 89.5 % (95.0-99.0); ABG PCO2 56 mmHg (35-48)
[2021-05-25 07:32] LABS: HEMATOCRIT 26.9 % (42-54); MEAN CORPUSCULAR HEMOGLOBIN 27.6 pg (27.0-33.0); MEAN CORPUSCULAR HGB CONC 31.6 g/dL (32.0-36.0); MEAN CORPUSCULAR VOLUME 87.3 fL (79-99); PLATELET COUNT (AUTO) 249 K/uL (130-400); RED BLOOD CELL COUNT(AUTO) 3.08 MIL/uL (4.50-6.20); RED CELL DISTRIBUTION WIDTH 13.6 % (11.0-15.5)
[2021-05-25 08:09] LABS: MAN.DIFF COMMENT-IMPRESSION MANUAL DIFFERENTIAL; MONOCYTES % (MANUAL) 4 % (2-9); PLATELET MORPHOLOGY COMMENT ADEQUATE; SEGMENTED NEUTROPHILS % 96 % (40-70)
[2021-05-25 08:35] LABS: CREATININE 1.5 mg/dL (0.5-1.5); POTASSIUM 5.1 mmol/L (3.5-5.1)
[2021-05-25] MEDS: POLYETHYLENE GLYCOL 3350 17 GM POWD.PACK PO SCH (08:43)
[2021-05-25] MEDS: ENOXAPARIN SODIUM 100 MG/1 ML SQ SCH ×2 (08:43→20:08)
[2021-05-25] MEDS: BARICITINIB (EUA) 2 MG TABLET PO SCH (08:43)
[2021-05-25] MEDS: FAMOTIDINE 20MG VIAL IV SCH ×2 (08:44→20:09)
[2021-05-25] MEDS: ASPIRIN 81MG CHEW TAB PO SCH (08:44)
[2021-05-25] MEDS: SOLU-MEDROL 40MG VIAL IVP SCH ×2 (08:44→20:09)
[2021-05-25] MEDS: DOCUSATE NA 100MG/10ML UDCUP PO SCH ×2 (08:44→20:09)
[2021-05-25] MEDS: METOPROLOL TARTRATE 25 MG TAB PO SCH (09:00)
[2021-05-25] MEDS: LOSARTAN 25 MG TABLET PO SCH (09:00)
[2021-05-25] MEDS: INSULIN GLARGINE 100 UNITS/ML 10 ML VIAL SQ SCH (20:11)
[2021-05-25] MEDS: MIDAZOLAM 100MG-0.9% NS 100ML 100ML BAG IV PRN (22:07)
[2021-05-26] VITALS (93 sets, daily range): BP systolic 97–163; BP diastolic 50–79
[2021-05-26] MEDS: PROPOFOL 1000 MG/100 ML IV PRN ×5 (00:28→18:19)
[2021-05-26] MEDS: CISATRACURIUM BESYLATE 100 MG in 0.9%NACL 100ML 100 ML IV SCH ×2 (01:14→09:51)
[2021-05-26] MEDS: FENTANYL 2500MCG+NS 250ML 250 ML IV SCH ×3 (01:17→20:31)
[2021-05-26] MEDS: MEROPENEM 1 GM VIAL IVP SCH ×2 (03:34→13:09)
[2021-05-26] MEDS: LINEZOLID 600 MG/ISO-OSM 300 ML IV SCH ×2 (03:34→13:09)
[2021-05-26] MEDS: 0.9% NACL 250ML IVPB SCH ×2 (03:34→18:00)
[2021-05-26] MEDS: INSULIN HUMULIN R 100 UNIT/ML 3ML SQ SCH ×6 (05:25→18:18)
[2021-05-26 06:46] LABS: ABG BASE EXCESS -0.9 mmol/L (-2.0-3.0); ABG OXYGEN SATURATION 92.3 % (95.0-99.0); ABG PCO2 73 mmHg (35-48)
[2021-05-26] MEDS: POLYETHYLENE GLYCOL 3350 17 GM POWD.PACK PO SCH (08:51)
[2021-05-26] MEDS: SOLU-MEDROL 40MG VIAL IVP SCH ×2 (08:51→20:36)
[2021-05-26] MEDS: FAMOTIDINE 20MG VIAL IV SCH ×2 (08:51→20:36)
[2021-05-26] MEDS: ASPIRIN 81MG CHEW TAB PO SCH (09:01)
[2021-05-26] MEDS: DOCUSATE NA 100MG/10ML UDCUP PO SCH ×2 (09:01→20:36)
[2021-05-26] MEDS: ENOXAPARIN SODIUM 100 MG/1 ML SQ SCH ×2 (09:02→20:33)
[2021-05-26] MEDS: MIDAZOLAM 100MG-0.9% NS 100ML 100ML BAG IV PRN ×2 (09:50→20:36)
[2021-05-26] MEDS: ASCORBIC ACID 500 MG TAB PO SCH (10:49)
[2021-05-26] MEDS: ZINC SULFATE 220 CAPSULE PO SCH (10:49)
[2021-05-26 11:11] LABS: BASOPHILS % (AUTO) 0.1 % (0.0-5.0); HEMATOCRIT 31.3 % (42-54); LYMPHOCYTES % (AUTO) 3.4 % (21.0-51.0); MEAN CORPUSCULAR HEMOGLOBIN 27.9 pg (27.0-33.0); MEAN CORPUSCULAR HGB CONC 31.3 g/dL (32.0-36.0); MEAN CORPUSCULAR VOLUME 89.2 fL (79-99); MONOCYTES % (AUTO) 4.9 % (3.0-13.0); NUCLEATED RED BLOOD CELLS 0.1 % (0.0-0.19); PLATELET COUNT (AUTO) 242 K/uL (130-400); RED BLOOD CELL COUNT(AUTO) 3.51 MIL/uL (4.50-6.20); WHITE BLOOD COUNT (AUTO) 13.5 K/uL (4.8-10.8)
[2021-05-26 11:24] LABS: ALBUMIN 1.8 g/dL (3.5-5.0); CREATININE 1.4 mg/dL (0.5-1.5); POTASSIUM 5.5 mmol/L (3.5-5.1)
[2021-05-26 11:31] LABS: B-TYPE NATRIURETIC PEPTIDE 33 pg/mL (0-100)
[2021-05-26 11:47] LABS: BILIRUBIN,TOTAL 0.2 mg/dL (0.2-1.0); CRP QUANTITATIVE 35.7 mg/L (0.00-9.0); TOTAL PROTEIN, SERUM 4.9 g/dL (6.0-8.3)
[2021-05-26 11:54] LABS: % IRON SATURATION 31.8 % (30-44)
[2021-05-26] MEDS: INSULIN GLARGINE 100 UNITS/ML 10 ML VIAL SQ SCH (21:00)
[2021-05-27] VITALS (79 sets, daily range): BP systolic 96–186; BP diastolic 46–93
[2021-05-27 04:33] LABS: BASOPHILS % (AUTO) 0.1 % (0.0-5.0); EOSINOPHILS % (AUTO) 0.1 % (0.0-8.0); HEMATOCRIT 25.5 % (42-54); LYMPHOCYTES % (AUTO) 2.7 % (21.0-51.0); MEAN CORPUSCULAR HEMOGLOBIN 29.2 pg (27.0-33.0); MEAN CORPUSCULAR HGB CONC 33.3 g/dL (32.0-36.0); MEAN CORPUSCULAR VOLUME 87.6 fL (79-99); MONOCYTES % (AUTO) 4.3 % (3.0-13.0); NEUTROPHILS % (AUTO) 90.2 % (40.0-77.0); PLATELET COUNT (AUTO) 196 K/uL (130-400); RED BLOOD CELL COUNT(AUTO) 2.91 MIL/uL (4.50-6.20)
[2021-05-27 04:53] LABS: ALBUMIN 1.5 g/dL (3.5-5.0); BILIRUBIN,TOTAL 0.4 mg/dL (0.2-1.0); CREATININE 1.1 mg/dL (0.5-1.5); MAGNESIUM 2.8 mg/dL (1.80-2.40); TOTAL PROTEIN, SERUM 4.3 g/dL (6.0-8.3)
[2021-05-27] MEDS: MEROPENEM 1 GM VIAL IVP SCH ×2 (04:54→14:43)
[2021-05-27] MEDS: LINEZOLID 600 MG/ISO-OSM 300 ML IV SCH ×2 (04:54→14:43)
[2021-05-27] MEDS: CISATRACURIUM BESYLATE 100 MG in 0.9%NACL 100ML 100 ML IV SCH ×5 (04:54→20:42)
[2021-05-27] MEDS: PROPOFOL 1000 MG/100 ML IV PRN ×3 (04:54→17:56)
[2021-05-27 04:57] LABS: ABG BASE EXCESS 2.4 mmol/L (-2.0-3.0); ABG HCO3 28.9 mmol/L (21.0-28.0); ABG OXYGEN SATURATION 91.7 % (95.0-99.0); ABG PCO2 55 mmHg (35-48)
[2021-05-27] MEDS: INSULIN HUMULIN R 100 UNIT/ML 3ML SQ SCH ×7 (06:00→17:14)
[2021-05-27] MEDS ORDERED: DOXYCYCLINE 100MG+NS 250ML 250 ML IV ONE (06:31)
[2021-05-27] MEDS: 0.9% NACL 250ML IVPB SCH ×2 (06:42→18:00)
[2021-05-27] MEDS: POLYETHYLENE GLYCOL 3350 17 GM POWD.PACK PO SCH (08:07)
[2021-05-27] MEDS: DOCUSATE NA 100MG/10ML UDCUP PO SCH ×2 (08:07→20:34)
[2021-05-27] MEDS: FENTANYL 2500MCG+NS 250ML 250 ML IV SCH ×2 (08:18→20:39)
[2021-05-27] MEDS: SOLU-MEDROL 40MG VIAL IVP SCH ×2 (08:19→20:32)
[2021-05-27] MEDS: ASPIRIN 81MG CHEW TAB PO SCH (08:19)
[2021-05-27] MEDS: ENOXAPARIN SODIUM 100 MG/1 ML SQ SCH ×3 (08:20→21:00)
[2021-05-27] MEDS: ASCORBIC ACID 500 MG TAB PO SCH (08:20)
[2021-05-27] MEDS: FAMOTIDINE 20MG VIAL IV SCH ×2 (08:20→20:31)
[2021-05-27] MEDS: ZINC SULFATE 220 CAPSULE PO SCH (08:20)
[2021-05-27] MEDS: MIDAZOLAM 100MG-0.9% NS 100ML 100ML BAG IV PRN (20:38)
[2021-05-27] MEDS: INSULIN GLARGINE 100 UNITS/ML 10 ML VIAL SQ SCH (21:30)
[2021-05-28] VITALS (60 sets, daily range): BP systolic 109–157; BP diastolic 64–105
[2021-05-28] MEDS: LINEZOLID 600 MG/ISO-OSM 300 ML IV SCH ×2 (03:04→15:21)
[2021-05-28] MEDS: MEROPENEM 1 GM VIAL IVP SCH ×2 (03:04→15:21)
[2021-05-28] MEDS: PROPOFOL 1000 MG/100 ML IV PRN ×3 (03:06→20:15)
[2021-05-28] MEDS: CISATRACURIUM BESYLATE 100 MG in 0.9%NACL 100ML 100 ML IV SCH ×4 (03:18→22:13)
[2021-05-28] MEDS: INSULIN HUMULIN R 100 UNIT/ML 3ML SQ SCH ×7 (03:25→17:55)
[2021-05-28 04:38] LABS: BASOPHILS % (AUTO) 0.1 % (0.0-5.0); HEMATOCRIT 28.8 % (42-54); MEAN CORPUSCULAR HEMOGLOBIN 27.6 pg (27.0-33.0); MEAN CORPUSCULAR HGB CONC 31.3 g/dL (32.0-36.0); MEAN CORPUSCULAR VOLUME 88.3 fL (79-99); MONOCYTES % (AUTO) 5.3 % (3.0-13.0); NEUTROPHILS % (AUTO) 88.8 % (40.0-77.0); PLATELET COUNT (AUTO) 239 K/uL (130-400); RED BLOOD CELL COUNT(AUTO) 3.26 MIL/uL (4.50-6.20); RED CELL DISTRIBUTION WIDTH 14.3 % (11.0-15.5); WHITE BLOOD COUNT (AUTO) 10.6 K/uL (4.8-10.8)
[2021-05-28 04:49] LABS: ALBUMIN 1.7 g/dL (3.5-5.0); BILIRUBIN,TOTAL 0.2 mg/dL (0.2-1.0); CREATININE 1.1 mg/dL (0.5-1.5); POTASSIUM 5.5 mmol/L (3.5-5.1); TOTAL PROTEIN, SERUM 4.7 g/dL (6.0-8.3)
[2021-05-28] MEDS: 0.9% NACL 250ML IVPB SCH ×2 (05:32→17:55)
[2021-05-28 07:03] LABS: ABG BASE EXCESS 4.1 mmol/L (-2.0-3.0); ABG HCO3 32.1 mmol/L (21.0-28.0); ABG OXYGEN SATURATION 92.8 % (95.0-99.0); ABG PCO2 68 mmHg (35-48)
[2021-05-28] MEDS: FAMOTIDINE 20MG VIAL IV SCH ×2 (08:15→20:09)
[2021-05-28] MEDS: SOLU-MEDROL 40MG VIAL IVP SCH ×2 (08:15→20:09)
[2021-05-28] MEDS: ASCORBIC ACID 500 MG TAB PO SCH (08:16)
[2021-05-28] MEDS: ASPIRIN 81MG CHEW TAB PO SCH (08:16)
[2021-05-28] MEDS: ZINC SULFATE 220 CAPSULE PO SCH (08:16)
[2021-05-28] MEDS: DOCUSATE NA 100MG/10ML UDCUP PO SCH ×2 (08:24→20:07)
[2021-05-28] MEDS: POLYETHYLENE GLYCOL 3350 17 GM POWD.PACK PO SCH (08:24)
[2021-05-28] MEDS: ENOXAPARIN SODIUM 100 MG/1 ML SQ SCH (08:25)
[2021-05-28] MEDS ORDERED: FUROSEMIDE 40MG VIAL IV SCH (09:30)
[2021-05-28] MEDS: FENTANYL 2500MCG+NS 250ML 250 ML IV SCH ×2 (11:19→20:17)
[2021-05-28] MEDS: MIDAZOLAM 100MG-0.9% NS 100ML 100ML BAG IV PRN ×2 (11:19→20:16)
[2021-05-28] MEDS: FUROSEMIDE 20MG VIAL IV SCH (17:52)
[2021-05-28] MEDS: ENOXAPARIN SODIUM 80 MG/0.8 ML SQ SCH (20:09)
[2021-05-28] MEDS: INSULIN GLARGINE 100 UNITS/ML 10 ML VIAL SQ SCH (20:14)
[2021-05-29] VITALS (51 sets, daily range): BP systolic 101–136; BP diastolic 55–76
[2021-05-29] MEDS: INSULIN HUMULIN R 100 UNIT/ML 3ML SQ SCH ×7 (00:10→15:59)
[2021-05-29] MEDS: PROPOFOL 1000 MG/100 ML IV PRN ×4 (01:07→19:40)
[2021-05-29] MEDS: CISATRACURIUM BESYLATE 100 MG in 0.9%NACL 100ML 100 ML IV SCH ×3 (02:22→14:26)
[2021-05-29] MEDS: MEROPENEM 1 GM VIAL IVP SCH ×2 (03:25→14:36)
[2021-05-29] MEDS: FUROSEMIDE 20MG VIAL IV SCH ×2 (03:25→14:36)
[2021-05-29] MEDS: LINEZOLID 600 MG/ISO-OSM 300 ML IV SCH ×2 (03:25→14:36)
[2021-05-29 04:18] LABS: HEMATOCRIT 29.5 % (42-54); MEAN CORPUSCULAR HEMOGLOBIN 28.1 pg (27.0-33.0); MEAN CORPUSCULAR HGB CONC 31.2 g/dL (32.0-36.0); MEAN CORPUSCULAR VOLUME 90.2 fL (79-99); RED BLOOD CELL COUNT(AUTO) 3.27 MIL/uL (4.50-6.20); RED CELL DISTRIBUTION WIDTH 14.3 % (11.0-15.5); WHITE BLOOD COUNT (AUTO) 13.7 K/uL (4.8-10.8)
[2021-05-29 04:36] LABS: ALBUMIN 1.9 g/dL (3.5-5.0); BILIRUBIN,TOTAL 0.2 mg/dL (0.2-1.0); CREATININE 1.2 mg/dL (0.5-1.5); MAGNESIUM 2.6 mg/dL (1.80-2.40); POTASSIUM 5.4 mmol/L (3.5-5.1); TOTAL PROTEIN, SERUM 5.1 g/dL (6.0-8.3)
[2021-05-29] MEDS: 0.9% NACL 250ML IVPB SCH ×2 (05:46→16:00)
[2021-05-29] MEDS: ENOXAPARIN SODIUM 80 MG/0.8 ML SQ SCH ×2 (07:44→20:49)
[2021-05-29] MEDS: ZINC SULFATE 220 CAPSULE PO SCH (07:44)
[2021-05-29] MEDS: SOLU-MEDROL 40MG VIAL IVP SCH ×2 (07:44→20:49)
[2021-05-29] MEDS: ASCORBIC ACID 500 MG TAB PO SCH (07:45)
[2021-05-29] MEDS: FAMOTIDINE 20MG VIAL IV SCH ×2 (07:45→20:49)
[2021-05-29] MEDS: ASPIRIN 81MG CHEW TAB PO SCH (07:45)
[2021-05-29] MEDS: MIDAZOLAM 100MG-0.9% NS 100ML 100ML BAG IV PRN ×2 (07:46→19:40)
[2021-05-29] MEDS: DOCUSATE NA 100MG/10ML UDCUP PO SCH ×2 (07:46→20:49)
[2021-05-29] MEDS: POLYETHYLENE GLYCOL 3350 17 GM POWD.PACK PO SCH (07:47)
[2021-05-29] MEDS: FENTANYL 2500MCG+NS 250ML 250 ML IV SCH ×2 (13:13→19:42)
[2021-05-29] MEDS: INSULIN GLARGINE 100 UNITS/ML 10 ML VIAL SQ SCH (20:48)
[2021-05-30] VITALS (46 sets, daily range): BP systolic 97–201; BP diastolic 54–107
[2021-05-30] MEDS: PROPOFOL 1000 MG/100 ML IV PRN ×7 (02:52→19:17)
[2021-05-30] MEDS: MEROPENEM 1 GM VIAL IVP SCH ×2 (02:58→15:18)
[2021-05-30] MEDS: FUROSEMIDE 20MG VIAL IV SCH ×2 (04:17→15:18)
[2021-05-30] MEDS: LINEZOLID 600 MG/ISO-OSM 300 ML IV SCH ×2 (04:18→15:18)
[2021-05-30] MEDS ORDERED: DOXYCYCLINE 100MG+NS 250ML 250 ML IV ONE (05:30)
[2021-05-30] MEDS: 0.9% NACL 250ML IVPB SCH ×2 (05:31→17:56)
[2021-05-30] MEDS: INSULIN HUMULIN R 100 UNIT/ML 3ML SQ SCH ×7 (05:57→18:16)
[2021-05-30 06:57] LABS: BASOPHILS % (AUTO) 0.1 % (0.0-5.0); EOSINOPHILS % (AUTO) 0.9 % (0.0-8.0); HEMATOCRIT 27.9 % (42-54); LYMPHOCYTES % (AUTO) 2.2 % (21.0-51.0); MEAN CORPUSCULAR HEMOGLOBIN 27.9 pg (27.0-33.0); MEAN CORPUSCULAR HGB CONC 30.8 g/dL (32.0-36.0); MEAN CORPUSCULAR VOLUME 90.6 fL (79-99); MONOCYTES % (AUTO) 4.4 % (3.0-13.0); NEUTROPHILS % (AUTO) 90.9 % (40.0-77.0); NUCLEATED RED BLOOD CELLS 0.1 % (0.0-0.19); PLATELET COUNT (AUTO) 243 K/uL (130-400); RED BLOOD CELL COUNT(AUTO) 3.08 MIL/uL (4.50-6.20); RED CELL DISTRIBUTION WIDTH 14.6 % (11.0-15.5)
[2021-05-30 07:15] LABS: ALBUMIN 1.9 g/dL (3.5-5.0); BILIRUBIN,TOTAL 0.3 mg/dL (0.2-1.0); TOTAL PROTEIN, SERUM 5.2 g/dL (6.0-8.3)
[2021-05-30 07:34] LABS: ABG BASE EXCESS 9.1 mmol/L (-2.0-3.0); ABG HCO3 38.6 mmol/L (21.0-28.0); ABG PCO2 77 mmHg (35-48)
[2021-05-30] MEDS: DOCUSATE NA 100MG/10ML UDCUP PO SCH ×2 (09:00→20:44)
[2021-05-30] MEDS: POLYETHYLENE GLYCOL 3350 17 GM POWD.PACK PO SCH (09:00)
[2021-05-30] MEDS: FAMOTIDINE 20MG VIAL IV SCH ×2 (09:09→20:44)
[2021-05-30] MEDS: ASPIRIN 81MG CHEW TAB PO SCH (09:09)
[2021-05-30] MEDS: SOLU-MEDROL 40MG VIAL IVP SCH ×2 (09:09→20:44)
[2021-05-30] MEDS: ENOXAPARIN SODIUM 80 MG/0.8 ML SQ SCH ×2 (09:10→20:47)
[2021-05-30] MEDS: ZINC SULFATE 220 CAPSULE PO SCH (09:10)
[2021-05-30] MEDS: ASCORBIC ACID 500 MG TAB PO SCH (09:10)
[2021-05-30] MEDS: CISATRACURIUM BESYLATE 100 MG in 0.9%NACL 100ML 100 ML IV SCH ×3 (09:11→21:34)
[2021-05-30] MEDS: MIDAZOLAM 100MG-0.9% NS 100ML 100ML BAG IV PRN (12:21)
[2021-05-30] MEDS: FENTANYL 2500MCG+NS 250ML 250 ML IV SCH (15:16)
[2021-05-30 16:47] LABS: ABG BASE EXCESS 13.8 mmol/L (-2.0-3.0); ABG HCO3 39.5 mmol/L (21.0-28.0); ABG OXYGEN SATURATION 91.5 % (95.0-99.0); ABG PCO2 58 mmHg (35-48)
[2021-05-30] MEDS: INSULIN GLARGINE 100 UNITS/ML 10 ML VIAL SQ SCH (20:47)
[2021-05-31] VITALS (41 sets, daily range): BP systolic 93–146; BP diastolic 52–78
[2021-05-31] MEDS: CISATRACURIUM BESYLATE 100 MG in 0.9%NACL 100ML 100 ML IV SCH ×5 (01:06→18:50)
[2021-05-31] MEDS: PROPOFOL 1000 MG/100 ML IV PRN ×6 (01:34→23:38)
[2021-05-31] MEDS: FENTANYL 2500MCG+NS 250ML 250 ML IV SCH (02:07)
[2021-05-31] MEDS: MIDAZOLAM 100MG-0.9% NS 100ML 100ML BAG IV PRN ×2 (02:07→19:02)
[2021-05-31] MEDS: LINEZOLID 600 MG/ISO-OSM 300 ML IV SCH ×2 (03:20→15:27)
[2021-05-31] MEDS: FUROSEMIDE 20MG VIAL IV SCH ×2 (03:20→15:27)
[2021-05-31] MEDS: MEROPENEM 1 GM VIAL IVP SCH ×2 (03:20→15:27)
[2021-05-31 03:30] LABS: ABG BASE EXCESS 17.7 mmol/L (-2.0-3.0); ABG HCO3 42.6 mmol/L (21.0-28.0); ABG OXYGEN SATURATION 90.5 % (95.0-99.0); ABG PCO2 55 mmHg (35-48)
[2021-05-31 04:55] LABS: ALBUMIN 1.5 g/dL (3.5-5.0); BILIRUBIN,TOTAL 0.3 mg/dL (0.2-1.0); CREATININE 1.1 mg/dL (0.5-1.5); CRP QUANTITATIVE 24.1 mg/L (0.00-9.0); MAGNESIUM 2.5 mg/dL (1.80-2.40); PHOSPHORUS 1.8 mg/dL (2.5-4.9); POTASSIUM 4.6 mmol/L (3.5-5.1); TOTAL PROTEIN, SERUM 4.2 g/dL (6.0-8.3)
[2021-05-31] MEDS: 0.9% NACL 250ML IVPB SCH ×2 (05:14→18:00)
[2021-05-31] MEDS: INSULIN HUMULIN R 100 UNIT/ML 3ML SQ SCH ×7 (05:16→18:46)
[2021-05-31 06:29] LABS: ABG BASE EXCESS 11.5 mmol/L (-2.0-3.0); ABG HCO3 36.1 mmol/L (21.0-28.0); ABG OXYGEN SATURATION 90.5 % (95.0-99.0); ABG PCO2 49 mmHg (35-48)
[2021-05-31 07:07] LABS: BASOPHILS % (AUTO) 0.1 % (0.0-5.0); EOSINOPHILS % (AUTO) 1.4 % (0.0-8.0); LYMPHOCYTES % (AUTO) 8.3 % (21.0-51.0); MEAN CORPUSCULAR HEMOGLOBIN 28.7 pg (27.0-33.0); MEAN CORPUSCULAR HGB CONC 31.5 g/dL (32.0-36.0); MONOCYTES % (AUTO) 5.8 % (3.0-13.0); NEUTROPHILS % (AUTO) 82.7 % (40.0-77.0); NUCLEATED RED BLOOD CELLS 0.2 % (0.0-0.19); PLATELET COUNT (AUTO) 206 K/uL (130-400); RED BLOOD CELL COUNT(AUTO) 2.23 MIL/uL (4.50-6.20); RED CELL DISTRIBUTION WIDTH 14.4 % (11.0-15.5); WHITE BLOOD COUNT (AUTO) 9.9 K/uL (4.8-10.8)
[2021-05-31 07:17] LABS: HEMATOCRIT 20.3 % (42-54)
[2021-05-31] MEDS: ENOXAPARIN SODIUM 80 MG/0.8 ML SQ SCH ×2 (09:00→21:00)
[2021-05-31] MEDS: ASPIRIN 81MG CHEW TAB PO SCH (09:00)
[2021-05-31] MEDS: POLYETHYLENE GLYCOL 3350 17 GM POWD.PACK PO SCH (09:00)
[2021-05-31] MEDS: DOCUSATE NA 100MG/10ML UDCUP PO SCH ×2 (09:00→20:49)
[2021-05-31 09:01] LABS: HEMATOCRIT 21.8 % (42-54)
[2021-05-31] MEDS: SOLU-MEDROL 40MG VIAL IVP SCH ×2 (09:22→20:49)
[2021-05-31] MEDS: ZINC SULFATE 220 CAPSULE PO SCH (09:22)
[2021-05-31] MEDS: ASCORBIC ACID 500 MG TAB PO SCH (09:23)
[2021-05-31] MEDS: FAMOTIDINE 20MG VIAL IV SCH ×2 (09:23→20:49)
[2021-05-31 17:41] LABS: HEMATOCRIT 23.8 % (42-54)
[2021-05-31] MEDS: INSULIN GLARGINE 100 UNITS/ML 10 ML VIAL SQ SCH (20:51)
[2021-05-31] MEDS: DEXMEDETOMIDINE 400MCG/NS100ML IV SCH (21:19)
[2021-06-01] VITALS (28 sets, daily range): BP systolic 105–187; BP diastolic 61–99
[2021-06-01] MEDS: PROPOFOL 1000 MG/100 ML IV PRN ×2 (03:37→09:05)
[2021-06-01] MEDS: LINEZOLID 600 MG/ISO-OSM 300 ML IV SCH (03:37)
[2021-06-01] MEDS: MEROPENEM 1 GM VIAL IVP SCH (03:38)
[2021-06-01] MEDS: FUROSEMIDE 20MG VIAL IV SCH ×2 (03:38→15:54)
[2021-06-01] MEDS: FENTANYL 2500MCG+NS 250ML 250 ML IV SCH ×2 (04:15→18:16)
[2021-06-01] MEDS: DEXMEDETOMIDINE 400MCG/NS100ML IV SCH ×3 (04:15→20:48)
[2021-06-01] MEDS ORDERED: DOXYCYCLINE 100MG+NS 250ML 250 ML IV ONE (05:35)
[2021-06-01] MEDS: 0.9% NACL 250ML IVPB SCH (05:39)
[2021-06-01] MEDS: INSULIN HUMULIN R 100 UNIT/ML 3ML SQ SCH ×7 (06:30→17:52)
[2021-06-01 07:10] LABS: BASOPHILS % (AUTO) 0.1 % (0.0-5.0); EOSINOPHILS % (AUTO) 1.3 % (0.0-8.0); HEMATOCRIT 24.3 % (42-54); LYMPHOCYTES % (AUTO) 8.9 % (21.0-51.0); MEAN CORPUSCULAR HEMOGLOBIN 28.1 pg (27.0-33.0); MEAN CORPUSCULAR HGB CONC 32.5 g/dL (32.0-36.0); MEAN CORPUSCULAR VOLUME 86.5 fL (79-99); MONOCYTES % (AUTO) 6.8 % (3.0-13.0); NEUTROPHILS % (AUTO) 80.2 % (40.0-77.0); NUCLEATED RED BLOOD CELLS 0.3 % (0.0-0.19); PLATELET COUNT (AUTO) 228 K/uL (130-400); RED BLOOD CELL COUNT(AUTO) 2.81 MIL/uL (4.50-6.20); RED CELL DISTRIBUTION WIDTH 14.5 % (11.0-15.5); WHITE BLOOD COUNT (AUTO) 9.1 K/uL (4.8-10.8)
[2021-06-01 07:51] LABS: ALBUMIN 1.8 g/dL (3.5-5.0); BILIRUBIN,TOTAL 0.4 mg/dL (0.2-1.0); CREATININE 1.2 mg/dL (0.5-1.5); CRP QUANTITATIVE 22.4 mg/L (0.00-9.0); POTASSIUM 4.2 mmol/L (3.5-5.1); TOTAL PROTEIN, SERUM 4.8 g/dL (6.0-8.3)
[2021-06-01] MEDS: DOCUSATE NA 100MG/10ML UDCUP PO SCH ×2 (09:00→20:45)
[2021-06-01] MEDS: POLYETHYLENE GLYCOL 3350 17 GM POWD.PACK PO SCH (09:00)
[2021-06-01] MEDS: PANTOPRAZOLE 40 MG/VIAL IVP SCH ×2 (09:05→20:45)
[2021-06-01] MEDS: ASPIRIN 81MG CHEW TAB PO SCH (09:06)
[2021-06-01] MEDS: MIDAZOLAM 100MG-0.9% NS 100ML 100ML BAG IV PRN (09:07)
[2021-06-01] MEDS: SOLU-MEDROL 40MG VIAL IVP SCH ×2 (09:07→20:45)
[2021-06-01] MEDS ORDERED: PROPOFOL 1000 MG/100 ML IV PRN (14:00)
[2021-06-01] MEDS ORDERED: PROPOFOL 1000 MG/100 ML 100 ML IV ONE (14:04)
[2021-06-01] MEDS: PROPOFOL 1000 MG/100 ML 100 ML IV SCH ×2 (17:43→20:48)
[2021-06-01] MEDS ORDERED: MIDAZOLAM 100MG-0.9% NS 100ML 100ML BAG IV ONE (18:30)
[2021-06-01] MEDS: MIDAZOLAM 100MG-0.9% NS 100ML 100 ML IV SCH (18:37)
[2021-06-01] MEDS: INSULIN GLARGINE 100 UNITS/ML 10 ML VIAL SQ SCH (20:45)
[2021-06-02] VITALS (25 sets, daily range): BP systolic 99–160; BP diastolic 48–85
[2021-06-02] MEDS: INSULIN HUMULIN R 100 UNIT/ML 3ML SQ SCH ×8 (01:21→18:17)
[2021-06-02 03:56] LABS: BASOPHILS % (AUTO) 0.1 % (0.0-5.0); EOSINOPHILS % (AUTO) 1.8 % (0.0-8.0); HEMATOCRIT 23.7 % (42-54); LYMPHOCYTES % (AUTO) 8.5 % (21.0-51.0); MEAN CORPUSCULAR HEMOGLOBIN 29.5 pg (27.0-33.0); MEAN CORPUSCULAR HGB CONC 32.9 g/dL (32.0-36.0); MEAN CORPUSCULAR VOLUME 89.8 fL (79-99); MONOCYTES % (AUTO) 7.8 % (3.0-13.0); NEUTROPHILS % (AUTO) 80.1 % (40.0-77.0); NUCLEATED RED BLOOD CELLS 0.3 % (0.0-0.19); PLATELET COUNT (AUTO) 214 K/uL (130-400); RED BLOOD CELL COUNT(AUTO) 2.64 MIL/uL (4.50-6.20); RED CELL DISTRIBUTION WIDTH 14.9 % (11.0-15.5)
[2021-06-02 04:06] LABS: % IRON SATURATION 31.9 % (30-44)
[2021-06-02 04:34] LABS: ALBUMIN 1.6 g/dL (3.5-5.0); BILIRUBIN,TOTAL 0.5 mg/dL (0.2-1.0); CREATININE 0.9 mg/dL (0.5-1.5); POTASSIUM 4.4 mmol/L (3.5-5.1); TOTAL PROTEIN, SERUM 4.5 g/dL (6.0-8.3)
[2021-06-02] MEDS: FUROSEMIDE 20MG VIAL IV SCH ×2 (05:06→14:37)
[2021-06-02 06:49] LABS: ABG BASE EXCESS 11.9 mmol/L (-2.0-3.0); ABG HCO3 36.8 mmol/L (21.0-28.0); ABG OXYGEN SATURATION 91.5 % (95.0-99.0); ABG PCO2 51 mmHg (35-48)
[2021-06-02] MEDS: FENTANYL 2500MCG+NS 250ML 250 ML IV SCH ×2 (08:07→21:20)
[2021-06-02] MEDS: DEXMEDETOMIDINE 400MCG/NS100ML IV SCH ×6 (08:07→23:18)
[2021-06-02] MEDS: POLYETHYLENE GLYCOL 3350 17 GM POWD.PACK PO SCH (08:08)
[2021-06-02] MEDS: PANTOPRAZOLE 40 MG/VIAL IVP SCH ×2 (08:08→20:21)
[2021-06-02] MEDS: DOCUSATE NA 100MG/10ML UDCUP PO SCH ×2 (08:08→20:21)
[2021-06-02] MEDS: ASPIRIN 81MG CHEW TAB PO SCH (08:08)
[2021-06-02] MEDS: SOLU-MEDROL 40MG VIAL IVP SCH ×2 (08:08→20:21)
[2021-06-02] MEDS ORDERED: LACTULOSE 20 GM/30 ML UDCUP PO SCH (12:30)
[2021-06-02] MEDS: PROPOFOL 1000 MG/100 ML 100 ML IV SCH (13:56)
[2021-06-02] MEDS ORDERED: VECURONIUM 10MG/10ML IV ONE (16:21)
[2021-06-02] MEDS: INSULIN GLARGINE 100 UNITS/ML 10 ML VIAL SQ SCH (20:22)
[2021-06-02] MEDS: VECURONIUM 10MG/10ML IV PRN ×2 (21:19→23:18)
[2021-06-02] MEDS: MIDAZOLAM 100MG-0.9% NS 100ML 100 ML IV SCH (21:21)
[2021-06-02] MEDS ORDERED: LORAZEPAM 2 MG/ML 1 ML VIAL IVP ONE (23:00)
[2021-06-03] VITALS (27 sets, daily range): BP systolic 92–159; BP diastolic 50–104
[2021-06-03] MEDS ORDERED: PANTOPRAZOLE 40MG INJ 80 MG in 0.9%NACL 100ML 100 ML IVP SCH ×2
[2021-06-03] MEDS: PROTAMINE SULFATE 10 MG/ML 5 ML VIAL IVP SCH (00:30)
[2021-06-03] MEDS: INSULIN HUMULIN R 100 UNIT/ML 3ML SQ SCH ×8 (00:50→17:20)
[2021-06-03 01:12] LABS: HEMATOCRIT 27.5 % (42-54)
[2021-06-03] MEDS ORDERED: PROTAMINE SULFATE 10 MG/ML 5 ML VIAL ONE (01:17)
[2021-06-03] MEDS ORDERED: 0.9%NACL 100ML 100 ML ONE (01:26)
[2021-06-03] MEDS: DEXMEDETOMIDINE 400MCG/NS100ML IV SCH ×9 (02:42→22:06)
[2021-06-03] MEDS ORDERED: PANTOPRAZOLE 40 MG/VIAL ONE (03:57)
[2021-06-03 06:24] LABS: ABG HCO3 33.8 mmol/L (21.0-28.0); ABG OXYGEN SATURATION 93.4 % (95.0-99.0); ABG PCO2 55 mmHg (35-48)
[2021-06-03 06:52] LABS: MEAN CORPUSCULAR HEMOGLOBIN 27.8 pg (27.0-33.0); MEAN CORPUSCULAR HGB CONC 31.2 g/dL (32.0-36.0); NUCLEATED RED BLOOD CELLS 0.4 % (0.0-0.19); PLATELET COUNT (AUTO) 217 K/uL (130-400); RED BLOOD CELL COUNT(AUTO) 2.81 MIL/uL (4.50-6.20); WHITE BLOOD COUNT (AUTO) 7.8 K/uL (4.8-10.8)
[2021-06-03 07:10] LABS: ALBUMIN 1.6 g/dL (3.5-5.0); BILIRUBIN,TOTAL 0.4 mg/dL (0.2-1.0); CREATININE 0.8 mg/dL (0.5-1.5); MAGNESIUM 2.3 mg/dL (1.80-2.40); POTASSIUM 4.3 mmol/L (3.5-5.1); TOTAL PROTEIN, SERUM 4.6 g/dL (6.0-8.3)
[2021-06-03 07:33] LABS: BASOPHILS % (MANUAL) 2 % (0-2); LYMPHOCYTES % (MANUAL) 13 % (22-44); MAN.DIFF COMMENT-IMPRESSION MANUAL DIFFERENTIAL; MONOCYTES % (MANUAL) 5 % (2-9); SEGMENTED NEUTROPHILS % 80 % (40-70)
[2021-06-03 07:34] LABS: PLATELET MORPHOLOGY COMMENT ADEQUATE
[2021-06-03] MEDS: SOLU-MEDROL 40MG VIAL IVP SCH ×2 (07:41→20:03)
[2021-06-03] MEDS: ASPIRIN 81MG CHEW TAB PO SCH (07:42)
[2021-06-03] MEDS: POLYETHYLENE GLYCOL 3350 17 GM POWD.PACK PO SCH (07:42)
[2021-06-03] MEDS: DOCUSATE NA 100MG/10ML UDCUP PO SCH ×2 (07:42→20:04)
[2021-06-03] MEDS: MIDAZOLAM 100MG-0.9% NS 100ML 100 ML IV SCH ×2 (07:43→20:21)
[2021-06-03] MEDS ORDERED: ENOXAPARIN SODIUM 30 MG/0.3 ML SQ SCH (09:00)
[2021-06-03] MEDS ORDERED: FUROSEMIDE 20MG VIAL IV SCH (09:00)
[2021-06-03] MEDS: FENTANYL 2500MCG+NS 250ML 250 ML IV SCH (11:12)
[2021-06-03] MEDS ORDERED: CISATRACURIUM BESYLATE 2 MG/ML 10ML VIAL IVP SCH (16:30)
[2021-06-03] MEDS: PANTOPRAZOLE 40 MG/VIAL IVP SCH (20:03)
[2021-06-03] MEDS: FUROSEMIDE 20MG VIAL IV SCH (20:04)
[2021-06-03] MEDS: INSULIN GLARGINE 100 UNITS/ML 10 ML VIAL SQ SCH (20:24)
[2021-06-03] MEDS ORDERED: FENTANYL 2500MCG+NS 250ML 250 ML IV ONE (22:03)
[2021-06-04] VITALS (45 sets, daily range): BP systolic 96–182; BP diastolic 53–94
[2021-06-04] MEDS: PROTAMINE SULFATE 10 MG/ML 5 ML VIAL IVP SCH (00:30)
[2021-06-04] MEDS: KETAMINE 50MG/ML SYRINGE 100 MG in 0.9%NACL 100ML 100 ML IV SCH ×3 (00:49→07:57)
[2021-06-04] MEDS: INSULIN HUMULIN R 100 UNIT/ML 3ML SQ SCH ×9 (00:52→23:59)
[2021-06-04] MEDS: DEXMEDETOMIDINE 400MCG/NS100ML IV SCH ×9 (01:18→23:07)
[2021-06-04 07:31] LABS: ABG BASE EXCESS 7.9 mmol/L (-2.0-3.0); ABG HCO3 33.9 mmol/L (21.0-28.0); ABG OXYGEN SATURATION 87.4 % (95.0-99.0); ABG PCO2 57 mmHg (35-48)
[2021-06-04] MEDS ORDERED: PHARMACY COMMUNICATION MISC STA (08:02)
[2021-06-04] MEDS: ASPIRIN 81MG CHEW TAB PO SCH (08:21)
[2021-06-04] MEDS: DOCUSATE NA 100MG/10ML UDCUP PO SCH ×2 (08:21→20:11)
[2021-06-04] MEDS: POLYETHYLENE GLYCOL 3350 17 GM POWD.PACK PO SCH (08:21)
[2021-06-04] MEDS: PANTOPRAZOLE 40 MG/VIAL IVP SCH ×2 (08:21→20:08)
[2021-06-04] MEDS: SOLU-MEDROL 40MG VIAL IVP SCH ×2 (08:21→20:08)
[2021-06-04] MEDS: FUROSEMIDE 20MG VIAL IV SCH ×2 (08:21→20:08)
[2021-06-04] MEDS: MIDAZOLAM 100MG-0.9% NS 100ML 100 ML IV SCH ×2 (08:23→20:06)
[2021-06-04] MEDS ORDERED: COMPOUND NARC IV MISC 1 EACH IVSOLN MISC PRN (09:00)
[2021-06-04] MEDS: FLUCONAZOLE 100 MG TAB PO SCH (10:55)
[2021-06-04] MEDS: FENTANYL 2500MCG+NS 250ML 250 ML IVPB SCH ×2 (10:59→22:34)
[2021-06-04] MEDS: KETAMINE 50MG/ML SYRINGE 500 MG in 0.9% NACL 500ML IV.SOLN 500 ML IV PRN (12:04)
[2021-06-04] MEDS ORDERED: PHARMACY COMMUNICATION MISC SCH (17:30)
[2021-06-04] MEDS: ENOXAPARIN SODIUM 100 MG/1 ML SQ SCH (20:07)
[2021-06-04] MEDS: INSULIN GLARGINE 100 UNITS/ML 10 ML VIAL SQ SCH (20:11)
[2021-06-04] MEDS ORDERED: ENOXAPARIN SODIUM 1 MG/KG SQ SCH (21:00)
[2021-06-05] VITALS (35 sets, daily range): BP systolic 110–171; BP diastolic 70–101
[2021-06-05] MEDS: PROTAMINE SULFATE 10 MG/ML 5 ML VIAL IVP SCH (00:01)
[2021-06-05] MEDS: INSULIN HUMULIN R 100 UNIT/ML 3ML SQ SCH ×7 (00:04→18:38)
[2021-06-05] MEDS: DEXMEDETOMIDINE 400MCG/NS100ML IV SCH ×8 (02:06→22:09)
[2021-06-05 04:35] LABS: BASOPHILS % (AUTO) 0.1 % (0.0-5.0); EOSINOPHILS % (AUTO) 0.5 % (0.0-8.0); LYMPHOCYTES % (AUTO) 4.6 % (21.0-51.0); MEAN CORPUSCULAR HEMOGLOBIN 28.2 pg (27.0-33.0); MEAN CORPUSCULAR HGB CONC 31.3 g/dL (32.0-36.0); MEAN CORPUSCULAR VOLUME 90.2 fL (79-99); MONOCYTES % (AUTO) 5.1 % (3.0-13.0); NEUTROPHILS % (AUTO) 88.5 % (40.0-77.0); PLATELET COUNT (AUTO) 198 K/uL (130-400); RED BLOOD CELL COUNT(AUTO) 2.66 MIL/uL (4.50-6.20); RED CELL DISTRIBUTION WIDTH 15.3 % (11.0-15.5); WHITE BLOOD COUNT (AUTO) 8.3 K/uL (4.8-10.8)
[2021-06-05 04:58] LABS: ALBUMIN 1.4 g/dL (3.5-5.0); BILIRUBIN,TOTAL 0.4 mg/dL (0.2-1.0); CREATININE 0.6 mg/dL (0.5-1.5); CRP QUANTITATIVE 82.9 mg/L (0.00-9.0); MAGNESIUM 1.9 mg/dL (1.80-2.40); PHOSPHORUS 3.6 mg/dL (2.5-4.9); POTASSIUM 4.2 mmol/L (3.5-5.1); TOTAL PROTEIN, SERUM 4.6 g/dL (6.0-8.3)
[2021-06-05] MEDS: MIDAZOLAM 100MG-0.9% NS 100ML 100 ML IV SCH ×2 (06:20→17:18)
[2021-06-05 07:24] LABS: ABG BASE EXCESS 5.9 mmol/L (-2.0-3.0); ABG HCO3 32.1 mmol/L (21.0-28.0); ABG OXYGEN SATURATION 92.4 % (95.0-99.0); ABG PCO2 56 mmHg (35-48)
[2021-06-05] MEDS: FENTANYL 2500MCG+NS 250ML 250 ML IVPB SCH ×2 (08:07→17:18)
[2021-06-05] MEDS: DOCUSATE NA 100MG/10ML UDCUP PO SCH ×2 (09:00→20:18)
[2021-06-05] MEDS: POLYETHYLENE GLYCOL 3350 17 GM POWD.PACK PO SCH (09:00)
[2021-06-05] MEDS: PANTOPRAZOLE 40 MG/VIAL IVP SCH ×2 (09:10→20:19)
[2021-06-05] MEDS: FUROSEMIDE 20MG VIAL IV SCH ×2 (09:10→20:18)
[2021-06-05] MEDS: SOLU-MEDROL 40MG VIAL IVP SCH ×2 (09:10→20:19)
[2021-06-05] MEDS: ENOXAPARIN SODIUM 100 MG/1 ML SQ SCH ×2 (09:11→20:20)
[2021-06-05] MEDS: ASPIRIN 81MG CHEW TAB PO SCH (09:11)
[2021-06-05] MEDS: FLUCONAZOLE 100 MG TAB PO SCH (09:11)
[2021-06-05] MEDS: KETAMINE 50MG/ML SYRINGE 500 MG in 0.9% NACL 500ML IV.SOLN 500 ML IV PRN (14:37)
[2021-06-05] MEDS: INSULIN GLARGINE 100 UNITS/ML 10 ML VIAL SQ SCH (20:29)
[2021-06-05 20:41] LABS: ABG HCO3 30.2 mmol/L (21.0-28.0); ABG OXYGEN SATURATION 85.5 % (95.0-99.0); ABG PCO2 42 mmHg (35-48)
[2021-06-06] VITALS (37 sets, daily range): BP systolic 85–192; BP diastolic 45–111
[2021-06-06] MEDS: PROTAMINE SULFATE 10 MG/ML 5 ML VIAL IVP SCH ×2 (00:30→23:59)
[2021-06-06] MEDS: INSULIN HUMULIN R 100 UNIT/ML 3ML SQ SCH ×10 (01:02→23:59)
[2021-06-06] MEDS: MIDAZOLAM 100MG-0.9% NS 100ML 100 ML IV SCH ×3 (01:26→23:48)
[2021-06-06 03:36] LABS: BASOPHILS % (AUTO) 0.1 % (0.0-5.0); EOSINOPHILS % (AUTO) 0.1 % (0.0-8.0); HEMATOCRIT 26.2 % (42-54); MEAN CORPUSCULAR HEMOGLOBIN 28.5 pg (27.0-33.0); MEAN CORPUSCULAR HGB CONC 31.7 g/dL (32.0-36.0); MONOCYTES % (AUTO) 4.2 % (3.0-13.0); NEUTROPHILS % (AUTO) 90.2 % (40.0-77.0); NUCLEATED RED BLOOD CELLS 0.2 % (0.0-0.19); PLATELET COUNT (AUTO) 201 K/uL (130-400); RED BLOOD CELL COUNT(AUTO) 2.91 MIL/uL (4.50-6.20); RED CELL DISTRIBUTION WIDTH 15.8 % (11.0-15.5); WHITE BLOOD COUNT (AUTO) 10.3 K/uL (4.8-10.8)
[2021-06-06 04:01] LABS: ALBUMIN 1.6 g/dL (3.5-5.0); BILIRUBIN,TOTAL 0.3 mg/dL (0.2-1.0); CREATININE 0.7 mg/dL (0.5-1.5); CRP QUANTITATIVE 59.5 mg/L (0.00-9.0); POTASSIUM 4.9 mmol/L (3.5-5.1)
[2021-06-06] MEDS: DEXMEDETOMIDINE 400MCG/NS100ML IV SCH ×7 (05:03→22:47)
[2021-06-06] MEDS: FENTANYL 2500MCG+NS 250ML 250 ML IVPB SCH ×3 (05:05→23:49)
[2021-06-06 07:47] LABS: ABG HCO3 32.8 mmol/L (21.0-28.0); ABG OXYGEN SATURATION 85.8 % (95.0-99.0); ABG PCO2 62 mmHg (35-48)
[2021-06-06] MEDS: DOCUSATE NA 100MG/10ML UDCUP PO SCH ×2 (08:48→20:12)
[2021-06-06] MEDS: POLYETHYLENE GLYCOL 3350 17 GM POWD.PACK PO SCH (09:00)
[2021-06-06] MEDS: FUROSEMIDE 20MG VIAL IV SCH ×2 (09:01→20:11)
[2021-06-06] MEDS: SOLU-MEDROL 40MG VIAL IVP SCH ×2 (09:01→20:11)
[2021-06-06] MEDS: ASPIRIN 81MG CHEW TAB PO SCH (09:01)
[2021-06-06] MEDS: PANTOPRAZOLE 40 MG/VIAL IVP SCH ×2 (09:01→20:11)
[2021-06-06] MEDS: FLUCONAZOLE 100 MG TAB PO SCH (09:02)
[2021-06-06] MEDS: ENOXAPARIN SODIUM 100 MG/1 ML SQ SCH ×2 (09:02→20:11)
[2021-06-06] MEDS: KETAMINE 50MG/ML SYRINGE 500 MG in 0.9% NACL 500ML IV.SOLN 500 ML IV PRN (18:20)
[2021-06-06] MEDS: INSULIN GLARGINE 100 UNITS/ML 10 ML VIAL SQ SCH (20:13)
[2021-06-06] MEDS: VECURONIUM 10MG/10ML IV PRN ×2 (21:46→22:39)
[2021-06-06] MEDS: CISATRACURIUM BESYLATE 100 MG in 0.9%NACL 100ML 90 ML IV PRN (22:32)
[2021-06-06] MEDS: PROPOFOL 1000 MG/100 ML 100 ML IV PRN (23:14)
[2021-06-07] VITALS (34 sets, daily range): BP systolic 87–152; BP diastolic 48–82
[2021-06-07] MEDS: DEXMEDETOMIDINE 400MCG/NS100ML IV SCH ×7 (02:19→23:42)
[2021-06-07 03:59] LABS: ABG BASE EXCESS 7.6 mmol/L (-2.0-3.0); ABG HCO3 34.6 mmol/L (21.0-28.0); ABG OXYGEN SATURATION 80.5 % (95.0-99.0); ABG PCO2 67 mmHg (35-48)
[2021-06-07 04:48] LABS: BASOPHILS % (AUTO) 0.2 % (0.0-5.0); EOSINOPHILS % (AUTO) 1.4 % (0.0-8.0); HEMATOCRIT 23.6 % (42-54); LYMPHOCYTES % (AUTO) 5.7 % (21.0-51.0); MEAN CORPUSCULAR HEMOGLOBIN 28.8 pg (27.0-33.0); MEAN CORPUSCULAR HGB CONC 31.4 g/dL (32.0-36.0); MEAN CORPUSCULAR VOLUME 91.8 fL (79-99); MONOCYTES % (AUTO) 6.7 % (3.0-13.0); NEUTROPHILS % (AUTO) 83.7 % (40.0-77.0); NUCLEATED RED BLOOD CELLS 0.4 % (0.0-0.19); PLATELET COUNT (AUTO) 235 K/uL (130-400); RED BLOOD CELL COUNT(AUTO) 2.57 MIL/uL (4.50-6.20); RED CELL DISTRIBUTION WIDTH 16.3 % (11.0-15.5); WHITE BLOOD COUNT (AUTO) 10.1 K/uL (4.8-10.8)
[2021-06-07 05:13] LABS: ALBUMIN 1.4 g/dL (3.5-5.0); BILIRUBIN,TOTAL 0.3 mg/dL (0.2-1.0); CREATININE 0.8 mg/dL (0.5-1.5); CRP QUANTITATIVE 46.5 mg/L (0.00-9.0); MAGNESIUM 2.1 mg/dL (1.80-2.40); PHOSPHORUS 3.1 mg/dL (2.5-4.9); POTASSIUM 4.3 mmol/L (3.5-5.1); TOTAL PROTEIN, SERUM 4.4 g/dL (6.0-8.3)
[2021-06-07] MEDS: INSULIN HUMULIN R 100 UNIT/ML 3ML SQ SCH ×6 (06:00→18:00)
[2021-06-07] MEDS: PROPOFOL 1000 MG/100 ML 100 ML IV PRN ×2 (07:10→17:51)
[2021-06-07] MEDS: FENTANYL 2500MCG+NS 250ML 250 ML IVPB SCH ×2 (08:46→17:52)
[2021-06-07] MEDS: FLUCONAZOLE 100 MG TAB PO SCH (08:47)
[2021-06-07] MEDS: DOCUSATE NA 100MG/10ML UDCUP PO SCH ×2 (08:47→20:20)
[2021-06-07] MEDS: PANTOPRAZOLE 40 MG/VIAL IVP SCH ×2 (08:47→20:17)
[2021-06-07] MEDS: FUROSEMIDE 20MG VIAL IV SCH ×2 (08:47→20:17)
[2021-06-07] MEDS: ASPIRIN 81MG CHEW TAB PO SCH (08:47)
[2021-06-07] MEDS: POLYETHYLENE GLYCOL 3350 17 GM POWD.PACK PO SCH (08:48)
[2021-06-07] MEDS: ENOXAPARIN SODIUM 100 MG/1 ML SQ SCH ×2 (08:48→20:18)
[2021-06-07] MEDS: SOLU-MEDROL 40MG VIAL IVP SCH ×2 (09:48→20:17)
[2021-06-07] MEDS: MIDAZOLAM 100MG-0.9% NS 100ML 100 ML IV SCH (11:25)
[2021-06-07] MEDS: INSULIN GLARGINE 100 UNITS/ML 10 ML VIAL SQ SCH (20:19)
[2021-06-07] MEDS: KETAMINE 50MG/ML SYRINGE 500 MG in 0.9% NACL 500ML IV.SOLN 500 ML IV PRN (22:20)
[2021-06-07] MEDS: CISATRACURIUM BESYLATE 100 MG in 0.9%NACL 100ML 90 ML IV PRN (22:20)
[2021-06-07] MEDS: PROTAMINE SULFATE 10 MG/ML 5 ML VIAL IVP SCH (23:43)
[2021-06-08] VITALS (30 sets, daily range): BP systolic 125–169; BP diastolic 83–104
[2021-06-08] MEDS: INSULIN HUMULIN R 100 UNIT/ML 3ML SQ SCH ×8 (01:40→17:58)
[2021-06-08] MEDS: DEXMEDETOMIDINE 400MCG/NS100ML IV SCH ×7 (02:35→22:10)
[2021-06-08] MEDS: FENTANYL 2500MCG+NS 250ML 250 ML IVPB SCH ×2 (03:58→11:56)
[2021-06-08 04:34] LABS: HEMATOCRIT 22.9 % (42-54)
[2021-06-08] MEDS: PROPOFOL 1000 MG/100 ML 100 ML IV PRN ×2 (05:11→11:37)
[2021-06-08] MEDS: CISATRACURIUM BESYLATE 100 MG in 0.9%NACL 100ML 90 ML IV PRN ×3 (05:22→21:27)
[2021-06-08 07:58] LABS: ABG BASE EXCESS 6.9 mmol/L (-2.0-3.0); ABG HCO3 33.3 mmol/L (21.0-28.0); ABG OXYGEN SATURATION 87.9 % (95.0-99.0); ABG PCO2 59 mmHg (35-48)
[2021-06-08] MEDS: FUROSEMIDE 20MG VIAL IV SCH ×2 (08:07→19:49)
[2021-06-08] MEDS: PANTOPRAZOLE 40 MG/VIAL IVP SCH ×2 (08:07→19:49)
[2021-06-08] MEDS: ASPIRIN 81MG CHEW TAB PO SCH (08:10)
[2021-06-08] MEDS: SOLU-MEDROL 40MG VIAL IVP SCH ×2 (08:10→19:49)
[2021-06-08] MEDS: FLUCONAZOLE 100 MG TAB PO SCH (08:11)
[2021-06-08] MEDS: POLYETHYLENE GLYCOL 3350 17 GM POWD.PACK PO SCH (08:11)
[2021-06-08] MEDS: DOCUSATE NA 100MG/10ML UDCUP PO SCH ×2 (08:11→19:51)
[2021-06-08] MEDS: ENOXAPARIN SODIUM 100 MG/1 ML SQ SCH ×2 (08:12→19:50)
[2021-06-08] MEDS: KETAMINE 50MG/ML SYRINGE 500 MG in 0.9% NACL 500ML IV.SOLN 500 ML IV PRN (08:51)
[2021-06-08] MEDS: MIDAZOLAM 100MG-0.9% NS 100ML 100 ML IV SCH (10:02)
[2021-06-08] MEDS: INSULIN GLARGINE 100 UNITS/ML 10 ML VIAL SQ SCH (19:50)
[2021-06-09] VITALS (29 sets, daily range): BP systolic 126–165; BP diastolic 72–109
[2021-06-09] MEDS: INSULIN HUMULIN R 100 UNIT/ML 3ML SQ SCH ×9 (00:28→17:30)
[2021-06-09] MEDS: PROTAMINE SULFATE 10 MG/ML 5 ML VIAL IVP SCH ×2 (00:30→23:52)
[2021-06-09] MEDS: DEXMEDETOMIDINE 400MCG/NS100ML IV SCH ×7 (00:36→20:55)
[2021-06-09] MEDS: PROPOFOL 1000 MG/100 ML 100 ML IV PRN ×3 (00:37→20:25)
[2021-06-09] MEDS: FENTANYL 2500MCG+NS 250ML 250 ML IVPB SCH ×2 (00:43→10:14)
[2021-06-09] MEDS: MIDAZOLAM 100MG-0.9% NS 100ML 100 ML IV SCH ×2 (02:58→15:14)
[2021-06-09] MEDS: KETAMINE 50MG/ML SYRINGE 500 MG in 0.9% NACL 500ML IV.SOLN 500 ML IV PRN (02:58)
[2021-06-09 04:17] LABS: ABG OXYGEN SATURATION 89.3 % (95.0-99.0); ABG PCO2 71 mmHg (35-48)
[2021-06-09] MEDS: CISATRACURIUM BESYLATE 100 MG in 0.9%NACL 100ML 90 ML IV PRN ×3 (04:34→20:44)
[2021-06-09 05:09] LABS: BASOPHILS % (AUTO) 0.1 % (0.0-5.0); HEMATOCRIT 23.3 % (42-54); LYMPHOCYTES % (AUTO) 2.8 % (21.0-51.0); MEAN CORPUSCULAR HEMOGLOBIN 28.7 pg (27.0-33.0); MEAN CORPUSCULAR HGB CONC 30.9 g/dL (32.0-36.0); MEAN CORPUSCULAR VOLUME 92.8 fL (79-99); MONOCYTES % (AUTO) 4.7 % (3.0-13.0); NUCLEATED RED BLOOD CELLS 0.5 % (0.0-0.19); PLATELET COUNT (AUTO) 98 K/uL (130-400); RED BLOOD CELL COUNT(AUTO) 2.51 MIL/uL (4.50-6.20); RED CELL DISTRIBUTION WIDTH 16.3 % (11.0-15.5)
[2021-06-09 05:27] LABS: CREATININE 0.6 mg/dL (0.5-1.5)
[2021-06-09] MEDS: FUROSEMIDE 20MG VIAL IV SCH ×2 (07:48→20:18)
[2021-06-09] MEDS: SOLU-MEDROL 40MG VIAL IVP SCH ×2 (07:48→20:18)
[2021-06-09] MEDS: FLUCONAZOLE 100 MG TAB PO SCH (07:49)
[2021-06-09] MEDS: PANTOPRAZOLE 40 MG/VIAL IVP SCH ×2 (07:49→20:17)
[2021-06-09] MEDS: DOCUSATE NA 100MG/10ML UDCUP PO SCH ×2 (07:52→20:21)
[2021-06-09] MEDS: ASPIRIN 81MG CHEW TAB PO SCH (07:52)
[2021-06-09] MEDS: POLYETHYLENE GLYCOL 3350 17 GM POWD.PACK PO SCH (07:52)
[2021-06-09] MEDS: ENOXAPARIN SODIUM 100 MG/1 ML SQ SCH ×2 (07:53→20:17)
[2021-06-09] MEDS ORDERED: NACL 0.9% IVPB SCH (12:00)
[2021-06-09] MEDS ORDERED: FENTANYL CITRATE IVPB SCH (12:00)
[2021-06-09] MEDS: INSULIN GLARGINE 100 UNITS/ML 10 ML VIAL SQ SCH (20:20)
[2021-06-09] MEDS: FENTANYL 2500MCG+NS 250ML 250 ML IV SCH (22:23)
[2021-06-10] VITALS (33 sets, daily range): BP systolic 114–212; BP diastolic 68–140
[2021-06-10] MEDS: DEXMEDETOMIDINE 400MCG/NS100ML IV SCH ×9 (00:58→23:41)
[2021-06-10] MEDS: INSULIN HUMULIN R 100 UNIT/ML 3ML SQ SCH ×10 (00:59→23:43)
[2021-06-10] MEDS: MIDAZOLAM 100MG-0.9% NS 100ML 100 ML IV SCH ×3 (02:57→22:56)
[2021-06-10] MEDS: CISATRACURIUM BESYLATE 100 MG in 0.9%NACL 100ML 90 ML IV PRN ×3 (02:58→17:30)
[2021-06-10 03:39] LABS: ABG BASE EXCESS 8.2 mmol/L (-2.0-3.0); ABG HCO3 39.2 mmol/L (21.0-28.0); ABG OXYGEN SATURATION 85.9 % (95.0-99.0); ABG PCO2 95 mmHg (35-48)
[2021-06-10 04:53] LABS: BASOPHILS % (AUTO) 0.2 % (0.0-5.0); EOSINOPHILS % (AUTO) 2.7 % (0.0-8.0); HEMATOCRIT 27.9 % (42-54); LYMPHOCYTES % (AUTO) 2.4 % (21.0-51.0); MEAN CORPUSCULAR HEMOGLOBIN 28.7 pg (27.0-33.0); MEAN CORPUSCULAR HGB CONC 30.5 g/dL (32.0-36.0); MEAN CORPUSCULAR VOLUME 94.3 fL (79-99); MONOCYTES % (AUTO) 3.9 % (3.0-13.0); NUCLEATED RED BLOOD CELLS 0.5 % (0.0-0.19); PLATELET COUNT (AUTO) 260 K/uL (130-400); RED BLOOD CELL COUNT(AUTO) 2.96 MIL/uL (4.50-6.20); RED CELL DISTRIBUTION WIDTH 16.7 % (11.0-15.5); WHITE BLOOD COUNT (AUTO) 10.8 K/uL (4.8-10.8)
[2021-06-10] MEDS ORDERED: ZOSYN 3.375GM+NS 50ML 50 ML ONE ×2 (04:55→06:36)
[2021-06-10 05:18] LABS: CREATININE 0.7 mg/dL (0.5-1.5); CRP QUANTITATIVE 15.4 mg/L (0.00-9.0); POTASSIUM 4.6 mmol/L (3.5-5.1)
[2021-06-10] MEDS: PROPOFOL 1000 MG/100 ML 100 ML IV PRN ×3 (06:10→23:58)
[2021-06-10] MEDS: KETAMINE 50MG/ML SYRINGE 500 MG in 0.9% NACL 500ML IV.SOLN 500 ML IV PRN (07:51)
[2021-06-10] MEDS: ASPIRIN 81MG CHEW TAB PO SCH (09:17)
[2021-06-10] MEDS: PANTOPRAZOLE 40 MG/VIAL IVP SCH ×2 (09:17→20:52)
[2021-06-10] MEDS: FUROSEMIDE 20MG VIAL IV SCH ×2 (09:17→20:52)
[2021-06-10] MEDS: SOLU-MEDROL 40MG VIAL IVP SCH ×2 (09:17→20:52)
[2021-06-10] MEDS: DOCUSATE NA 100MG/10ML UDCUP PO SCH ×2 (09:17→20:57)
[2021-06-10] MEDS: POLYETHYLENE GLYCOL 3350 17 GM POWD.PACK PO SCH (09:18)
[2021-06-10] MEDS: ENOXAPARIN SODIUM 100 MG/1 ML SQ SCH ×2 (09:18→20:53)
[2021-06-10] MEDS: FLUCONAZOLE 100 MG TAB PO SCH (09:18)
[2021-06-10] MEDS: FENTANYL 2500MCG+NS 250ML 250 ML IV SCH ×2 (11:26→19:33)
[2021-06-10] MEDS ORDERED: ATROPINE 1MG SYG IVP ONE (16:52)
[2021-06-10] MEDS ORDERED: SODIUM BICARB 50MEQ 50ML VIAL IV ONE (20:30)
[2021-06-10] MEDS: INSULIN GLARGINE 100 UNITS/ML 10 ML VIAL SQ SCH (20:57)
[2021-06-10] MEDS: PROTAMINE SULFATE 10 MG/ML 5 ML VIAL IVP SCH (23:48)
[2021-06-11] VITALS (22 sets, daily range): BP systolic 94–168; BP diastolic 60–98
[2021-06-11] MEDS: CISATRACURIUM BESYLATE 100 MG in 0.9%NACL 100ML 90 ML IV PRN ×3 (01:12→14:02)
[2021-06-11] MEDS: DEXMEDETOMIDINE 400MCG/NS100ML IV SCH ×7 (02:26→22:06)
[2021-06-11] MEDS: FENTANYL 2500MCG+NS 250ML 250 ML IV SCH ×3 (03:16→22:06)
[2021-06-11 04:24] LABS: ABG BASE EXCESS 14.6 mmol/L (-2.0-3.0); ABG HCO3 44.5 mmol/L (21.0-28.0); ABG OXYGEN SATURATION 90.5 % (95.0-99.0); ABG PCO2 102 mmHg (35-48)
[2021-06-11] MEDS: INSULIN HUMULIN R 100 UNIT/ML 3ML SQ SCH ×8 (05:44→23:20)
[2021-06-11 06:32] LABS: BASOPHILS % (AUTO) 0.1 % (0.0-5.0); LYMPHOCYTES % (AUTO) 3.4 % (21.0-51.0); MEAN CORPUSCULAR HEMOGLOBIN 28.5 pg (27.0-33.0); MEAN CORPUSCULAR VOLUME 95.1 fL (79-99); MONOCYTES % (AUTO) 4.9 % (3.0-13.0); NEUTROPHILS % (AUTO) 89.4 % (40.0-77.0); NUCLEATED RED BLOOD CELLS 0.5 % (0.0-0.19); PLATELET COUNT (AUTO) 252 K/uL (130-400); RED BLOOD CELL COUNT(AUTO) 2.84 MIL/uL (4.50-6.20); RED CELL DISTRIBUTION WIDTH 17.2 % (11.0-15.5); WHITE BLOOD COUNT (AUTO) 7.8 K/uL (4.8-10.8)
[2021-06-11 06:50] LABS: CREATININE 0.6 mg/dL (0.5-1.5); CRP QUANTITATIVE 7.4 mg/L (0.00-9.0); PHOSPHORUS 3.8 mg/dL (2.5-4.9); POTASSIUM 4.6 mmol/L (3.5-5.1)
[2021-06-11 07:18] LABS: % IRON SATURATION 31.9 % (30-44)
[2021-06-11] MEDS: SOLU-MEDROL 40MG VIAL IVP SCH ×2 (08:11→21:25)
[2021-06-11] MEDS: FUROSEMIDE 20MG VIAL IV SCH (08:11)
[2021-06-11] MEDS: PANTOPRAZOLE 40 MG/VIAL IVP SCH ×2 (08:11→21:25)
[2021-06-11] MEDS: POLYETHYLENE GLYCOL 3350 17 GM POWD.PACK PO SCH (08:11)
[2021-06-11] MEDS: FLUCONAZOLE 100 MG TAB PO SCH (08:12)
[2021-06-11] MEDS: DOCUSATE NA 100MG/10ML UDCUP PO SCH ×2 (08:12→21:25)
[2021-06-11] MEDS: ASPIRIN 81MG CHEW TAB PO SCH (08:12)
[2021-06-11] MEDS: ENOXAPARIN SODIUM 100 MG/1 ML SQ SCH ×2 (09:54→21:26)
[2021-06-11] MEDS: PROPOFOL 1000 MG/100 ML 100 ML IV PRN ×2 (09:57→19:31)
[2021-06-11] MEDS: MIDAZOLAM 100MG-0.9% NS 100ML 100 ML IV SCH (09:57)
[2021-06-11] MEDS: KETAMINE 50MG/ML SYRINGE 500 MG in 0.9% NACL 500ML IV.SOLN 500 ML IV PRN (11:08)
[2021-06-11] MEDS: INSULIN GLARGINE 100 UNITS/ML 10 ML VIAL SQ SCH (21:25)
[2021-06-11] MEDS: FUROSEMIDE 40MG VIAL IV SCH (21:44)
[2021-06-11] MEDS: PROTAMINE SULFATE 10 MG/ML 5 ML VIAL IVP SCH (23:20)
[2021-06-12] VITALS (24 sets, daily range): BP systolic 95–150; BP diastolic 45–89
[2021-06-12] MEDS: DEXMEDETOMIDINE 400MCG/NS100ML IV SCH ×8 (00:36→23:31)
[2021-06-12] MEDS: MIDAZOLAM 100MG-0.9% NS 100ML 100 ML IV SCH ×3 (00:36→20:26)
[2021-06-12] MEDS: CISATRACURIUM BESYLATE 100 MG in 0.9%NACL 100ML 90 ML IV PRN (00:40)
[2021-06-12] MEDS: PROPOFOL 1000 MG/100 ML 100 ML IV PRN ×3 (02:33→19:51)
[2021-06-12] MEDS: INSULIN HUMULIN R 100 UNIT/ML 3ML SQ SCH ×4 (06:14→17:56)
[2021-06-12] MEDS: FUROSEMIDE 40MG VIAL IV SCH ×3 (06:16→20:03)
[2021-06-12] MEDS: FENTANYL 2500MCG+NS 250ML 250 ML IV SCH ×2 (07:41→15:33)
[2021-06-12] MEDS: SOLU-MEDROL 40MG VIAL IVP SCH ×2 (07:42→20:03)
[2021-06-12] MEDS: DOCUSATE NA 100MG/10ML UDCUP PO SCH ×2 (07:43→20:03)
[2021-06-12] MEDS: ENOXAPARIN SODIUM 100 MG/1 ML SQ SCH ×2 (07:43→20:04)
[2021-06-12] MEDS: ASPIRIN 81MG CHEW TAB PO SCH (07:44)
[2021-06-12] MEDS: PANTOPRAZOLE 40 MG/VIAL IVP SCH ×2 (07:44→20:03)
[2021-06-12] MEDS: POLYETHYLENE GLYCOL 3350 17 GM POWD.PACK PO SCH (07:44)
[2021-06-12 10:42] LABS: HEMATOCRIT 27.7 % (42-54); LYMPHOCYTES % (AUTO) 3.1 % (21.0-51.0); MEAN CORPUSCULAR HEMOGLOBIN 29.5 pg (27.0-33.0); MEAN CORPUSCULAR VOLUME 98.6 fL (79-99); MONOCYTES % (AUTO) 5.4 % (3.0-13.0); NEUTROPHILS % (AUTO) 89.6 % (40.0-77.0); NUCLEATED RED BLOOD CELLS 1.1 % (0.0-0.19); PLATELET COUNT (AUTO) 257 K/uL (130-400); RED BLOOD CELL COUNT(AUTO) 2.81 MIL/uL (4.50-6.20); RED CELL DISTRIBUTION WIDTH 17.2 % (11.0-15.5); WHITE BLOOD COUNT (AUTO) 8.5 K/uL (4.8-10.8)
[2021-06-12 11:08] LABS: ABG BASE EXCESS 16.6 mmol/L (-2.0-3.0); ABG HCO3 42.7 mmol/L (21.0-28.0); ABG PCO2 63 mmHg (35-48)
[2021-06-12 11:11] LABS: ALBUMIN 1.6 g/dL (3.5-5.0); BILIRUBIN,TOTAL 0.3 mg/dL (0.2-1.0); CREATININE 0.7 mg/dL (0.5-1.5); POTASSIUM 4.4 mmol/L (3.5-5.1); TOTAL PROTEIN, SERUM 4.6 g/dL (6.0-8.3)
[2021-06-12] MEDS: KETAMINE 50MG/ML SYRINGE 500 MG in 0.9% NACL 500ML IV.SOLN 500 ML IV PRN (15:33)
[2021-06-12] MEDS: INSULIN GLARGINE 100 UNITS/ML 10 ML VIAL SQ SCH (20:04)
[2021-06-13] VITALS (29 sets, daily range): BP systolic 78–229; BP diastolic 38–121
[2021-06-13] MEDS ORDERED: DEXTROSE 50%-WATER 50 ML DISP.SYRIN IV ONE (00:03)
[2021-06-13] MEDS: PROTAMINE SULFATE 10 MG/ML 5 ML VIAL IVP SCH (00:16)
[2021-06-13] MEDS: FENTANYL 2500MCG+NS 250ML 250 ML IV SCH ×3 (00:43→17:36)
[2021-06-13] MEDS: DEXMEDETOMIDINE 400MCG/NS100ML IV SCH ×7 (02:10→22:55)
[2021-06-13] MEDS: PROPOFOL 1000 MG/100 ML 100 ML IV PRN ×5 (02:12→23:32)
[2021-06-13 03:44] LABS: ABG BASE EXCESS 15.4 mmol/L (-2.0-3.0); ABG HCO3 43.1 mmol/L (21.0-28.0); ABG OXYGEN SATURATION 84.1 % (95.0-99.0); ABG PCO2 76 mmHg (35-48)
[2021-06-13] MEDS: CISATRACURIUM BESYLATE 100 MG in 0.9%NACL 100ML 90 ML IV PRN ×3 (04:42→19:40)
[2021-06-13] MEDS: FUROSEMIDE 40MG VIAL IV SCH ×3 (05:13→21:03)
[2021-06-13] MEDS: INSULIN HUMULIN R 100 UNIT/ML 3ML SQ SCH ×4 (05:23→17:38)
[2021-06-13] MEDS: MIDAZOLAM 100MG-0.9% NS 100ML 100 ML IV SCH ×2 (06:15→07:51)
[2021-06-13 06:44] LABS: BASOPHILS % (AUTO) 0.1 % (0.0-5.0); EOSINOPHILS % (AUTO) 0.1 % (0.0-8.0); HEMATOCRIT 29.6 % (42-54); LYMPHOCYTES % (AUTO) 4.6 % (21.0-51.0); MEAN CORPUSCULAR HEMOGLOBIN 29.1 pg (27.0-33.0); MEAN CORPUSCULAR HGB CONC 30.7 g/dL (32.0-36.0); MEAN CORPUSCULAR VOLUME 94.6 fL (79-99); MONOCYTES % (AUTO) 5.5 % (3.0-13.0); NEUTROPHILS % (AUTO) 88.2 % (40.0-77.0); NUCLEATED RED BLOOD CELLS 0.4 % (0.0-0.19); PLATELET COUNT (AUTO) 323 K/uL (130-400); RED BLOOD CELL COUNT(AUTO) 3.13 MIL/uL (4.50-6.20); RED CELL DISTRIBUTION WIDTH 18.5 % (11.0-15.5)
[2021-06-13 07:01] LABS: ALBUMIN 1.8 g/dL (3.5-5.0); BILIRUBIN,TOTAL 0.3 mg/dL (0.2-1.0); CREATININE 0.7 mg/dL (0.5-1.5); CRP QUANTITATIVE 29.3 mg/L (0.00-9.0); POTASSIUM 3.8 mmol/L (3.5-5.1); TOTAL PROTEIN, SERUM 5.2 g/dL (6.0-8.3)
[2021-06-13] MEDS: SOLU-MEDROL 40MG VIAL IVP SCH ×2 (07:48→21:01)
[2021-06-13] MEDS: DOCUSATE NA 100MG/10ML UDCUP PO SCH ×2 (07:48→21:00)
[2021-06-13] MEDS: ASPIRIN 81MG CHEW TAB PO SCH (07:48)
[2021-06-13] MEDS: PANTOPRAZOLE 40 MG/VIAL IVP SCH ×2 (07:48→21:01)
[2021-06-13] MEDS: POLYETHYLENE GLYCOL 3350 17 GM POWD.PACK PO SCH (07:48)
[2021-06-13] MEDS: ENOXAPARIN SODIUM 100 MG/1 ML SQ SCH ×2 (07:49→21:02)
[2021-06-13] MEDS: KETAMINE 50MG/ML SYRINGE 500 MG in 0.9% NACL 500ML IV.SOLN 500 ML IV PRN ×2 (10:25→23:32)
[2021-06-13] MEDS ORDERED: ZOSYN 3.375GM+NS 50ML 3.38 GM in 0.9%NACL 50ML 50 ML IV SCH (11:30)
[2021-06-13] MEDS ORDERED: LACTULOSE 20 GM/30 ML UDCUP PO PRN (11:30)
[2021-06-13] MEDS: ZOSYN 3.375GM+NS 50ML 50 ML IV SCH ×2 (12:06→21:01)
[2021-06-13 12:11] LABS: ABG BASE EXCESS 15.1 mmol/L (-2.0-3.0); ABG HCO3 45.1 mmol/L (21.0-28.0); ABG OXYGEN SATURATION 84.9 % (95.0-99.0); ABG PCO2 99 mmHg (35-48)
[2021-06-13 18:25] LABS: ABG BASE EXCESS 14.1 mmol/L (-2.0-3.0); ABG HCO3 41.5 mmol/L (21.0-28.0); ABG OXYGEN SATURATION 95.3 % (95.0-99.0); ABG PCO2 63 mmHg (35-48)
[2021-06-13] MEDS: INSULIN GLARGINE 100 UNITS/ML 10 ML VIAL SQ SCH (21:02)
[2021-06-14] VITALS (24 sets, daily range): BP systolic 80–164; BP diastolic 33–101
[2021-06-14] MEDS: PROTAMINE SULFATE 10 MG/ML 5 ML VIAL IVP SCH (00:13)
[2021-06-14] MEDS: INSULIN HUMULIN R 100 UNIT/ML 3ML SQ SCH ×4 (00:24→18:31)
[2021-06-14] MEDS: FENTANYL 2500MCG+NS 250ML 250 ML IV SCH ×3 (01:00→17:34)
[2021-06-14] MEDS: MIDAZOLAM 100MG-0.9% NS 100ML 100 ML IV SCH ×2 (01:00→14:20)
[2021-06-14] MEDS: DEXMEDETOMIDINE 400MCG/NS100ML IV SCH ×7 (02:31→20:17)
[2021-06-14 03:10] LABS: ABG BASE EXCESS 13.7 mmol/L (-2.0-3.0); ABG HCO3 43.1 mmol/L (21.0-28.0); ABG OXYGEN SATURATION 86.6 % (95.0-99.0); ABG PCO2 91 mmHg (35-48)
[2021-06-14] MEDS: PROPOFOL 1000 MG/100 ML 100 ML IV PRN ×5 (04:37→21:57)
[2021-06-14] MEDS: ZOSYN 3.375GM+NS 50ML 50 ML IV SCH ×3 (05:04→21:53)
[2021-06-14] MEDS: FUROSEMIDE 40MG VIAL IV SCH ×2 (05:05→13:38)
[2021-06-14 06:30] LABS: EOSINOPHILS % (AUTO) 0.4 % (0.0-8.0); HEMATOCRIT 23.5 % (42-54); LYMPHOCYTES % (AUTO) 4.2 % (21.0-51.0); MEAN CORPUSCULAR HEMOGLOBIN 28.6 pg (27.0-33.0); MEAN CORPUSCULAR HGB CONC 29.4 g/dL (32.0-36.0); MEAN CORPUSCULAR VOLUME 97.5 fL (79-99); MONOCYTES % (AUTO) 6.2 % (3.0-13.0); NEUTROPHILS % (AUTO) 88.4 % (40.0-77.0); PLATELET COUNT (AUTO) 255 K/uL (130-400); RED BLOOD CELL COUNT(AUTO) 2.41 MIL/uL (4.50-6.20); RED CELL DISTRIBUTION WIDTH 18.5 % (11.0-15.5); WHITE BLOOD COUNT (AUTO) 9.4 K/uL (4.8-10.8)
[2021-06-14 06:42] LABS: ALBUMIN 1.3 g/dL (3.5-5.0); BILIRUBIN,TOTAL 0.2 mg/dL (0.2-1.0); CREATININE 0.7 mg/dL (0.5-1.5); CRP QUANTITATIVE 90.4 mg/L (0.00-9.0); TOTAL PROTEIN, SERUM 4.3 g/dL (6.0-8.3)
[2021-06-14] MEDS: PANTOPRAZOLE 40 MG/VIAL IVP SCH ×2 (07:54→21:54)
[2021-06-14] MEDS: DOCUSATE NA 100MG/10ML UDCUP PO SCH ×2 (07:54→21:54)
[2021-06-14] MEDS: SOLU-MEDROL 40MG VIAL IVP SCH ×2 (07:55→21:54)
[2021-06-14] MEDS: POLYETHYLENE GLYCOL 3350 17 GM POWD.PACK PO SCH (07:55)
[2021-06-14] MEDS: ASPIRIN 81MG CHEW TAB PO SCH (07:55)
[2021-06-14] MEDS: ENOXAPARIN SODIUM 100 MG/1 ML SQ SCH ×2 (07:56→21:56)
[2021-06-14] MEDS: CISATRACURIUM BESYLATE 100 MG in 0.9%NACL 100ML 90 ML IV PRN ×3 (08:23→20:17)
[2021-06-14] MEDS: KETAMINE 50MG/ML SYRINGE 500 MG in 0.9% NACL 500ML IV.SOLN 500 ML IV PRN (13:39)
[2021-06-14 14:56] LABS: ABG BASE EXCESS 14.2 mmol/L (-2.0-3.0); ABG OXYGEN SATURATION 86.5 % (95.0-99.0); ABG PCO2 84 mmHg (35-48)
[2021-06-14] MEDS: METOCLOPRAMIDE 10 MG/2 ML VIAL IVP SCH (17:29)
[2021-06-14] MEDS: ACETYLCYSTEINE 10% 100MG/ML 4ML VIAL IH SCH (18:00)
[2021-06-14] MEDS: IPRATROPIUM/ALBUTEROL SULFATE 3 ML SOLUTION IH SCH (18:00)
[2021-06-14] MEDS: INSULIN GLARGINE 100 UNITS/ML 10 ML VIAL SQ SCH (21:55)
[2021-06-14] MEDS: BALSAM PERU/CASTOR OIL 60 GM TUBE TP SCH (21:56)
[2021-06-15] VITALS (48 sets, daily range): BP systolic 115–217; BP diastolic 63–128
[2021-06-15] MEDS: PROTAMINE SULFATE 10 MG/ML 5 ML VIAL IVP SCH (00:14)
[2021-06-15] MEDS: METOCLOPRAMIDE 10 MG/2 ML VIAL IVP SCH ×3 (00:46→13:58)
[2021-06-15] MEDS: IPRATROPIUM/ALBUTEROL SULFATE 3 ML SOLUTION IH SCH ×4 (02:00→18:00)
[2021-06-15] MEDS: PROPOFOL 1000 MG/100 ML 100 ML IV PRN ×7 (02:00→20:52)
[2021-06-15] MEDS: CISATRACURIUM BESYLATE 100 MG in 0.9%NACL 100ML 90 ML IV PRN ×5 (02:00→22:20)
[2021-06-15] MEDS: FUROSEMIDE 40MG VIAL IV SCH ×3 (02:01→22:15)
[2021-06-15] MEDS: ACETYLCYSTEINE 10% 100MG/ML 4ML VIAL IH SCH ×4 (02:01→18:00)
[2021-06-15] MEDS: KETAMINE 50MG/ML SYRINGE 500 MG in 0.9% NACL 500ML IV.SOLN 500 ML IV PRN ×2 (03:51→17:30)
[2021-06-15] MEDS: DEXMEDETOMIDINE 400MCG/NS100ML IV SCH ×5 (03:53→20:52)
[2021-06-15] MEDS: MIDAZOLAM 100MG-0.9% NS 100ML 100 ML IV SCH ×2 (03:53→14:13)
[2021-06-15 04:02] LABS: ABG BASE EXCESS 13.4 mmol/L (-2.0-3.0); ABG HCO3 38.5 mmol/L (21.0-28.0); ABG OXYGEN SATURATION 87.7 % (95.0-99.0); ABG PCO2 53 mmHg (35-48)
[2021-06-15] MEDS: INSULIN HUMULIN R 100 UNIT/ML 3ML SQ SCH ×4 (06:00→18:14)
[2021-06-15] MEDS: ZOSYN 3.375GM+NS 50ML 50 ML IV SCH ×3 (06:06→20:47)
[2021-06-15 06:46] LABS: EOSINOPHILS % (AUTO) 0.8 % (0.0-8.0); HEMATOCRIT 24.5 % (42-54); LYMPHOCYTES % (AUTO) 6.2 % (21.0-51.0); MEAN CORPUSCULAR HEMOGLOBIN 29.1 pg (27.0-33.0); MEAN CORPUSCULAR HGB CONC 30.6 g/dL (32.0-36.0); MONOCYTES % (AUTO) 5.3 % (3.0-13.0); NEUTROPHILS % (AUTO) 86.2 % (40.0-77.0); PLATELET COUNT (AUTO) 255 K/uL (130-400); RED BLOOD CELL COUNT(AUTO) 2.58 MIL/uL (4.50-6.20); RED CELL DISTRIBUTION WIDTH 18.1 % (11.0-15.5); WHITE BLOOD COUNT (AUTO) 7.2 K/uL (4.8-10.8)
[2021-06-15 07:20] LABS: ALBUMIN 1.5 g/dL (3.5-5.0); BILIRUBIN,TOTAL 0.4 mg/dL (0.2-1.0); CREATININE 0.6 mg/dL (0.5-1.5); CRP QUANTITATIVE 110.1 mg/L (0.00-9.0); POTASSIUM 3.5 mmol/L (3.5-5.1); TOTAL PROTEIN, SERUM 4.8 g/dL (6.0-8.3)
[2021-06-15] MEDS: DOCUSATE NA 100MG/10ML UDCUP PO SCH ×2 (08:59→20:48)
[2021-06-15] MEDS: SOLU-MEDROL 40MG VIAL IVP SCH ×2 (08:59→20:47)
[2021-06-15] MEDS: POLYETHYLENE GLYCOL 3350 17 GM POWD.PACK PO SCH (08:59)
[2021-06-15] MEDS: ENOXAPARIN SODIUM 100 MG/1 ML SQ SCH ×3 (09:00→20:48)
[2021-06-15] MEDS: BALSAM PERU/CASTOR OIL 60 GM TUBE TP SCH ×3 (09:00→20:48)
[2021-06-15] MEDS: PANTOPRAZOLE 40 MG/VIAL IVP SCH ×2 (09:01→20:47)
[2021-06-15] MEDS: ASPIRIN 81MG CHEW TAB PO SCH ×2 (09:01→15:34)
[2021-06-15] MEDS: POTASSIUM CHLORIDE 20MEQ/100ML 100 ML IV PRN ×4 (09:20→17:28)
[2021-06-15 11:17] LABS: MAGNESIUM 1.4 mg/dL (1.80-2.40); POTASSIUM 3.4 mmol/L (3.5-5.1)
[2021-06-15] MEDS ORDERED: MAGNESIUM 2GM PREMIX 50ML 50 ML IV ONE (11:27)
[2021-06-15] MEDS: FENTANYL 2500MCG+NS 250ML 250 ML IV SCH ×2 (14:12→22:20)
[2021-06-15 15:10] LABS: POTASSIUM 3.7 mmol/L (3.5-5.1)
[2021-06-15] MEDS ORDERED: LABETALOL 20MG SYG IV ONE ×2 (15:15→17:06)
[2021-06-15] MEDS ORDERED: FUROSEMIDE 20MG VIAL IV ONE (15:30)
[2021-06-15] MEDS ORDERED: HYDRALAZINE 20MG/ML VIAL ONE (16:20)
[2021-06-15] MEDS: LABETALOL HCL 100 MG TABLET PO SCH (20:48)
[2021-06-15] MEDS: ALBUMIN (HUMAN) 25% 50 ML IV SCH (22:14)
[2021-06-15] MEDS: INSULIN GLARGINE 100 UNITS/ML 10 ML VIAL SQ SCH (22:14)
[2021-06-16] VITALS (46 sets, daily range): BP systolic 41–229; BP diastolic 20–121
[2021-06-16] MEDS: PROTAMINE SULFATE 10 MG/ML 5 ML VIAL IVP SCH (00:02)
[2021-06-16] MEDS: ACETYLCYSTEINE 10% 100MG/ML 4ML VIAL IH SCH ×4 (00:14→23:54)
[2021-06-16] MEDS: INSULIN HUMULIN R 100 UNIT/ML 3ML SQ SCH ×4 (00:20→17:40)
[2021-06-16] MEDS: METOCLOPRAMIDE 10 MG/2 ML VIAL IVP SCH ×2 (00:21→08:12)
[2021-06-16] MEDS: PROPOFOL 1000 MG/100 ML 100 ML IV PRN ×7 (00:23→21:59)
[2021-06-16] MEDS: CISATRACURIUM BESYLATE 100 MG in 0.9%NACL 100ML 90 ML IV PRN ×3 (03:38→13:47)
[2021-06-16] MEDS: DEXMEDETOMIDINE 400MCG/NS100ML IV SCH ×6 (03:38→21:58)
[2021-06-16] MEDS: KETAMINE 50MG/ML SYRINGE 500 MG in 0.9% NACL 500ML IV.SOLN 500 ML IV PRN ×2 (03:39→11:03)
[2021-06-16] MEDS: MIDAZOLAM 100MG-0.9% NS 100ML 100 ML IV SCH ×2 (04:40→15:56)
[2021-06-16] MEDS: ZOSYN 3.375GM+NS 50ML 50 ML IV SCH ×3 (04:41→21:55)
[2021-06-16] MEDS: ALBUMIN (HUMAN) 25% 50 ML IV SCH ×2 (05:02→22:00)
[2021-06-16] MEDS: FENTANYL 2500MCG+NS 250ML 250 ML IV SCH ×2 (05:41→18:28)
[2021-06-16] MEDS: IPRATROPIUM/ALBUTEROL SULFATE 3 ML SOLUTION IH SCH ×4 (06:00→18:00)
[2021-06-16] MEDS: FUROSEMIDE 40MG VIAL IV SCH ×2 (06:40→22:00)
[2021-06-16 06:46] LABS: ABG BASE EXCESS 12.3 mmol/L (-2.0-3.0); ABG OXYGEN SATURATION 91.8 % (95.0-99.0); ABG PCO2 84 mmHg (35-48)
[2021-06-16 06:47] LABS: BASOPHILS % (AUTO) 0.1 % (0.0-5.0); EOSINOPHILS % (AUTO) 0.1 % (0.0-8.0); HEMATOCRIT 28.2 % (42-54); LYMPHOCYTES % (AUTO) 2.7 % (21.0-51.0); MEAN CORPUSCULAR HEMOGLOBIN 30.2 pg (27.0-33.0); MEAN CORPUSCULAR HGB CONC 29.8 g/dL (32.0-36.0); MEAN CORPUSCULAR VOLUME 101.4 fL (79-99); MONOCYTES % (AUTO) 3.6 % (3.0-13.0); NEUTROPHILS % (AUTO) 88.4 % (40.0-77.0); NUCLEATED RED BLOOD CELLS 0.9 % (0.0-0.19); PLATELET COUNT (AUTO) 177 K/uL (130-400); RED BLOOD CELL COUNT(AUTO) 2.78 MIL/uL (4.50-6.20)
[2021-06-16 07:08] LABS: BILIRUBIN,TOTAL 0.4 mg/dL (0.2-1.0); CREATININE 0.8 mg/dL (0.5-1.5); MAGNESIUM 2.8 mg/dL (1.80-2.40); PHOSPHORUS 2.2 mg/dL (2.5-4.9); POTASSIUM 5.2 mmol/L (3.5-5.1)
[2021-06-16] MEDS: POLYETHYLENE GLYCOL 3350 17 GM POWD.PACK PO SCH (07:39)
[2021-06-16] MEDS: DOCUSATE NA 100MG/10ML UDCUP PO SCH ×2 (07:39→21:00)
[2021-06-16] MEDS: SOLU-MEDROL 40MG VIAL IVP SCH ×2 (08:12→21:55)
[2021-06-16] MEDS: PANTOPRAZOLE 40 MG/VIAL IVP SCH ×2 (08:12→21:55)
[2021-06-16] MEDS: LABETALOL HCL 100 MG TABLET PO SCH (08:12)
[2021-06-16] MEDS: ASPIRIN 81MG CHEW TAB PO SCH (08:13)
[2021-06-16] MEDS: ENOXAPARIN SODIUM 100 MG/1 ML SQ SCH ×3 (08:14→22:00)
[2021-06-16] MEDS: BALSAM PERU/CASTOR OIL 60 GM TUBE TP SCH ×3 (08:14→21:00)
[2021-06-16] MEDS ORDERED: PHENYLEPHRINE HCL 10 MG/ML 1ML VIAL IV ONE (09:04)
[2021-06-16] MEDS ORDERED: NOREPINEPHRIN 4MG/NS 250ML 250 ML IV ONE (09:15)
[2021-06-16] MEDS: PHENYLEPHRINE HCL 100 MG in 0.9% NACL 250ML 240 ML IV PRN (09:23)
[2021-06-16] MEDS ORDERED: FUROSEMIDE 40MG VIAL IV SCH ×2 (10:00→21:00)
[2021-06-16] MEDS ORDERED: METOLAZONE 2.5 MG TABLET PO SCH (18:30)
[2021-06-16] MEDS ORDERED: PHARMACY COMMUNICATION MISC SCH (19:00)
[2021-06-16] MEDS ORDERED: ALBUMIN (HUMAN) 25% 50 ML IV SCH (21:00)
[2021-06-16] MEDS: INSULIN GLARGINE 100 UNITS/ML 10 ML VIAL SQ SCH (21:58)
[2021-06-17] VITALS (47 sets, daily range): BP systolic 67–223; BP diastolic 42–119
[2021-06-17] MEDS: PROTAMINE SULFATE 10 MG/ML 5 ML VIAL IVP SCH (00:30)
[2021-06-17] MEDS: DEXMEDETOMIDINE 400MCG/NS100ML IV SCH ×8 (00:40→23:48)
[2021-06-17] MEDS: INSULIN HUMULIN R 100 UNIT/ML 3ML SQ SCH ×5 (00:43→23:49)
[2021-06-17] MEDS ORDERED: VECURONIUM 10MG/10ML IV ONE (02:53)
[2021-06-17 03:17] LABS: ABG BASE EXCESS 14.6 mmol/L (-2.0-3.0); ABG HCO3 42.5 mmol/L (21.0-28.0); ABG OXYGEN SATURATION 89.4 % (95.0-99.0); ABG PCO2 78 mmHg (35-48)
[2021-06-17] MEDS: CISATRACURIUM BESYLATE 100 MG in 0.9%NACL 100ML 90 ML IV PRN ×4 (03:29→23:35)
[2021-06-17] MEDS ORDERED: VECURONIUM 10MG/10ML IV PRN (03:30)
[2021-06-17] MEDS: PROPOFOL 1000 MG/100 ML 100 ML IV PRN ×3 (03:45→15:31)
[2021-06-17 04:40] LABS: BASOPHILS % (AUTO) 0.3 % (0.0-5.0); MEAN CORPUSCULAR HEMOGLOBIN 29.7 pg (27.0-33.0); MEAN CORPUSCULAR HGB CONC 31.2 g/dL (32.0-36.0); MEAN CORPUSCULAR VOLUME 95.1 fL (79-99); MONOCYTES % (AUTO) 7.2 % (3.0-13.0); NEUTROPHILS % (AUTO) 84.7 % (40.0-77.0); NUCLEATED RED BLOOD CELLS 0.7 % (0.0-0.19); PLATELET COUNT (AUTO) 339 K/uL (130-400); RED BLOOD CELL COUNT(AUTO) 2.63 MIL/uL (4.50-6.20); RED CELL DISTRIBUTION WIDTH 19.5 % (11.0-15.5); WHITE BLOOD COUNT (AUTO) 13.4 K/uL (4.8-10.8)
[2021-06-17 04:51] LABS: CREATININE 0.6 mg/dL (0.5-1.5); CRP QUANTITATIVE 55.1 mg/L (0.00-9.0); POTASSIUM 4.1 mmol/L (3.5-5.1)
[2021-06-17] MEDS: ZOSYN 3.375GM+NS 50ML 50 ML IV SCH ×3 (05:33→20:00)
[2021-06-17] MEDS: FUROSEMIDE 40MG VIAL IV SCH ×3 (05:34→20:00)
[2021-06-17] MEDS: ALBUMIN (HUMAN) 25% 50 ML IV SCH (05:34)
[2021-06-17] MEDS: ACETYLCYSTEINE 10% 100MG/ML 4ML VIAL IH SCH ×4 (06:00→18:00)
[2021-06-17] MEDS: IPRATROPIUM/ALBUTEROL SULFATE 3 ML SOLUTION IH SCH ×4 (06:00→18:00)
[2021-06-17 07:08] LABS: ABG BASE EXCESS 12.7 mmol/L (-2.0-3.0); ABG HCO3 40.3 mmol/L (21.0-28.0); ABG OXYGEN SATURATION 94.4 % (95.0-99.0); ABG PCO2 63 mmHg (35-48)
[2021-06-17] MEDS: POLYETHYLENE GLYCOL 3350 17 GM POWD.PACK PO SCH (07:21)
[2021-06-17] MEDS: DOCUSATE NA 100MG/10ML UDCUP PO SCH ×2 (07:21→20:00)
[2021-06-17] MEDS: ASPIRIN 81MG CHEW TAB PO SCH (07:21)
[2021-06-17] MEDS: ENOXAPARIN SODIUM 100 MG/1 ML SQ SCH ×3 (07:24→21:00)
[2021-06-17] MEDS: SOLU-MEDROL 40MG VIAL IVP SCH ×2 (07:45→20:00)
[2021-06-17] MEDS: PANTOPRAZOLE 40 MG/VIAL IVP SCH ×2 (07:46→20:00)
[2021-06-17] MEDS: BALSAM PERU/CASTOR OIL 60 GM TUBE TP SCH ×3 (07:46→20:01)
[2021-06-17] MEDS: KETAMINE 50MG/ML SYRINGE 500 MG in 0.9% NACL 500ML IV.SOLN 500 ML IV PRN (12:24)
[2021-06-17] MEDS: ACETAMINOPHEN 325 MG TAB PO PRN (15:21)
[2021-06-17] MEDS: MIDAZOLAM 100MG-0.9% NS 100ML 100 ML IV SCH (15:30)
[2021-06-17] MEDS: FENTANYL 2500MCG+NS 250ML 250 ML IV SCH (15:30)
[2021-06-17] MEDS: INSULIN GLARGINE 100 UNITS/ML 10 ML VIAL SQ SCH (20:01)
[2021-06-18] VITALS (53 sets, daily range): BP systolic 76–202; BP diastolic 39–106
[2021-06-18] MEDS: PROTAMINE SULFATE 10 MG/ML 5 ML VIAL IVP SCH (00:30)
[2021-06-18] MEDS: PROPOFOL 1000 MG/100 ML 100 ML IV PRN ×3 (00:31→20:56)
[2021-06-18] MEDS: DEXMEDETOMIDINE 400MCG/NS100ML IV SCH ×6 (02:43→21:29)
[2021-06-18 04:09] LABS: ABG BASE EXCESS 16.9 mmol/L (-2.0-3.0); ABG HCO3 44.7 mmol/L (21.0-28.0); ABG PCO2 83 mmHg (35-48)
[2021-06-18] MEDS: ACETYLCYSTEINE 10% 100MG/ML 4ML VIAL IH SCH ×4 (04:34→18:00)
[2021-06-18] MEDS: IPRATROPIUM/ALBUTEROL SULFATE 3 ML SOLUTION IH SCH ×4 (04:34→18:00)
[2021-06-18] MEDS: FUROSEMIDE 40MG VIAL IV SCH ×3 (04:46→20:25)
[2021-06-18] MEDS: MIDAZOLAM 100MG-0.9% NS 100ML 100 ML IV SCH ×2 (04:47→18:17)
[2021-06-18] MEDS: ZOSYN 3.375GM+NS 50ML 50 ML IV SCH ×2 (04:47→12:38)
[2021-06-18 05:11] LABS: BASOPHILS % (AUTO) 0.1 % (0.0-5.0); EOSINOPHILS % (AUTO) 1.2 % (0.0-8.0); HEMATOCRIT 22.3 % (42-54); LYMPHOCYTES % (AUTO) 7.1 % (21.0-51.0); MEAN CORPUSCULAR HEMOGLOBIN 29.1 pg (27.0-33.0); MEAN CORPUSCULAR HGB CONC 30.5 g/dL (32.0-36.0); MEAN CORPUSCULAR VOLUME 95.3 fL (79-99); MONOCYTES % (AUTO) 8.8 % (3.0-13.0); NEUTROPHILS % (AUTO) 80.1 % (40.0-77.0); NUCLEATED RED BLOOD CELLS 0.2 % (0.0-0.19); PLATELET COUNT (AUTO) 203 K/uL (130-400); RED BLOOD CELL COUNT(AUTO) 2.34 MIL/uL (4.50-6.20); RED CELL DISTRIBUTION WIDTH 19.3 % (11.0-15.5); WHITE BLOOD COUNT (AUTO) 11.7 K/uL (4.8-10.8)
[2021-06-18 05:25] LABS: ALBUMIN 2.1 g/dL (3.5-5.0); BILIRUBIN,TOTAL 0.4 mg/dL (0.2-1.0); CREATININE 0.6 mg/dL (0.5-1.5); CRP QUANTITATIVE 61.7 mg/L (0.00-9.0); MAGNESIUM 1.6 mg/dL (1.80-2.40); POTASSIUM 3.8 mmol/L (3.5-5.1); TOTAL PROTEIN, SERUM 5.1 g/dL (6.0-8.3)
[2021-06-18] MEDS: INSULIN HUMULIN R 100 UNIT/ML 3ML SQ SCH ×3 (05:28→18:00)
[2021-06-18] MEDS: ENOXAPARIN SODIUM 100 MG/1 ML SQ SCH ×2 (07:06→21:00)
[2021-06-18] MEDS: ASPIRIN 81MG CHEW TAB PO SCH (07:06)
[2021-06-18 07:22] LABS: ABG BASE EXCESS 17.9 mmol/L (-2.0-3.0); ABG HCO3 46.7 mmol/L (21.0-28.0); ABG OXYGEN SATURATION 88.9 % (95.0-99.0); ABG PCO2 90 mmHg (35-48)
[2021-06-18] MEDS: BALSAM PERU/CASTOR OIL 60 GM TUBE TP SCH ×3 (08:01→20:25)
[2021-06-18] MEDS: POLYETHYLENE GLYCOL 3350 17 GM POWD.PACK PO SCH (08:01)
[2021-06-18] MEDS: PANTOPRAZOLE 40 MG/VIAL IVP SCH ×2 (08:01→20:24)
[2021-06-18] MEDS: SOLU-MEDROL 40MG VIAL IVP SCH ×2 (08:01→20:24)
[2021-06-18] MEDS: DOCUSATE NA 100MG/10ML UDCUP PO SCH ×2 (08:01→20:24)
[2021-06-18] MEDS: FENTANYL 2500MCG+NS 250ML 250 ML IV SCH ×2 (08:03→22:23)
[2021-06-18] MEDS: CISATRACURIUM BESYLATE 100 MG in 0.9%NACL 100ML 90 ML IV PRN ×4 (10:08→22:29)
[2021-06-18] MEDS ORDERED: POTASSIUM CHLORIDE 20MEQ/100ML 100 ML IV PRN (10:30)
[2021-06-18] MEDS: MAGNESIUM 2GM PREMIX 50ML 50 ML IV PRN (11:01)
[2021-06-18] MEDS: ACETAMINOPHEN 325 MG TAB PO PRN (11:15)
[2021-06-18] MEDS: KETAMINE 50MG/ML SYRINGE 500 MG in 0.9% NACL 500ML IV.SOLN 500 ML IV PRN (13:06)
[2021-06-18 14:50] LABS: ABG BASE EXCESS 12.5 mmol/L (-2.0-3.0); ABG HCO3 40.1 mmol/L (21.0-28.0); ABG OXYGEN SATURATION 95.7 % (95.0-99.0); ABG PCO2 71 mmHg (35-48)
[2021-06-18] MEDS ORDERED: METOLAZONE 2.5 MG TABLET PO SCH (17:00)
[2021-06-19] VITALS (85 sets, daily range): BP systolic 66–177; BP diastolic 39–98
[2021-06-19] MEDS: DEXMEDETOMIDINE 400MCG/NS100ML IV SCH ×8 (00:29→23:27)
[2021-06-19] MEDS ORDERED: PHENYLEPHRINE HCL 10 MG/ML 1ML VIAL IV ONE ×2 (02:46→02:48)
[2021-06-19] MEDS: PROPOFOL 1000 MG/100 ML 100 ML IV PRN ×4 (02:56→21:24)
[2021-06-19] MEDS: CISATRACURIUM BESYLATE 100 MG in 0.9%NACL 100ML 90 ML IV PRN ×5 (02:58→21:03)
[2021-06-19] MEDS: FUROSEMIDE 40MG VIAL IV SCH ×3 (05:21→21:19)
[2021-06-19] MEDS: INSULIN HUMULIN R 100 UNIT/ML 3ML SQ SCH ×4 (05:58→17:50)
[2021-06-19] MEDS: MIDAZOLAM 100MG-0.9% NS 100ML 100 ML IV SCH ×2 (06:00→08:10)
[2021-06-19] MEDS: ACETYLCYSTEINE 10% 100MG/ML 4ML VIAL IH SCH ×4 (06:00→18:00)
[2021-06-19] MEDS: IPRATROPIUM/ALBUTEROL SULFATE 3 ML SOLUTION IH SCH ×4 (06:00→18:00)
[2021-06-19 06:20] LABS: BASOPHILS % (AUTO) 0.2 % (0.0-5.0); EOSINOPHILS % (AUTO) 11.4 % (0.0-8.0); HEMATOCRIT 28.2 % (42-54); LYMPHOCYTES % (AUTO) 5.7 % (21.0-51.0); MEAN CORPUSCULAR HEMOGLOBIN 29.5 pg (27.0-33.0); MEAN CORPUSCULAR HGB CONC 30.5 g/dL (32.0-36.0); MEAN CORPUSCULAR VOLUME 96.6 fL (79-99); MONOCYTES % (AUTO) 10.2 % (3.0-13.0); NEUTROPHILS % (AUTO) 69.1 % (40.0-77.0); NUCLEATED RED BLOOD CELLS 0.3 % (0.0-0.19); PLATELET COUNT (AUTO) 340 K/uL (130-400); RED BLOOD CELL COUNT(AUTO) 2.92 MIL/uL (4.50-6.20); RED CELL DISTRIBUTION WIDTH 18.4 % (11.0-15.5); WHITE BLOOD COUNT (AUTO) 13.4 K/uL (4.8-10.8)
[2021-06-19 06:50] LABS: ALBUMIN 2.2 g/dL (3.5-5.0); BILIRUBIN,TOTAL 0.4 mg/dL (0.2-1.0); CREATININE 0.7 mg/dL (0.5-1.5); CRP QUANTITATIVE 39.8 mg/L (0.00-9.0); MAGNESIUM 1.9 mg/dL (1.80-2.40); POTASSIUM 3.6 mmol/L (3.5-5.1); TOTAL PROTEIN, SERUM 5.5 g/dL (6.0-8.3)
[2021-06-19] MEDS: POTASSIUM CHLORIDE 20MEQ/100ML 100 ML IV PRN (08:06)
[2021-06-19] MEDS: KETAMINE 50MG/ML SYRINGE 500 MG in 0.9% NACL 500ML IV.SOLN 500 ML IV PRN (08:06)
[2021-06-19] MEDS: POLYETHYLENE GLYCOL 3350 17 GM POWD.PACK PO SCH (08:07)
[2021-06-19] MEDS: MAGNESIUM 2GM PREMIX 50ML 50 ML IV PRN (08:07)
[2021-06-19] MEDS: ENOXAPARIN SODIUM 100 MG/1 ML SQ SCH ×2 (08:07→21:26)
[2021-06-19] MEDS: DOCUSATE NA 100MG/10ML UDCUP PO SCH ×2 (08:07→21:24)
[2021-06-19] MEDS: SOLU-MEDROL 40MG VIAL IVP SCH ×2 (08:08→21:24)
[2021-06-19] MEDS: PANTOPRAZOLE 40 MG/VIAL IVP SCH ×2 (08:08→21:24)
[2021-06-19] MEDS: ASPIRIN 81MG CHEW TAB PO SCH (08:08)
[2021-06-19 08:15] LABS: ABG BASE EXCESS 19.5 mmol/L (-2.0-3.0); ABG HCO3 43.9 mmol/L (21.0-28.0); ABG OXYGEN SATURATION 83.5 % (95.0-99.0); ABG PCO2 55 mmHg (35-48)
[2021-06-19] MEDS: BALSAM PERU/CASTOR OIL 60 GM TUBE TP SCH ×3 (09:00→21:27)
[2021-06-19] MEDS ORDERED: METOLAZONE 2.5 MG TABLET PO SCH (10:00)
[2021-06-19] MEDS ORDERED: VANCOMYCIN PROTOCOL PER PHARMACY IV SCH (10:00)
[2021-06-19] MEDS ORDERED: COMPOUND IV REFRIGERATED 1 EACH IVSOLN MISC PRN (10:30)
[2021-06-19 10:51] LABS: ABG BASE EXCESS 19.3 mmol/L (-2.0-3.0); ABG HCO3 49.3 mmol/L (21.0-28.0); ABG PCO2 103 mmHg (35-48)
[2021-06-19] MEDS: MEROPENEM 1 GM VIAL IVP SCH ×2 (11:34→21:24)
[2021-06-19] MEDS: MIDODRINE HCL 5 MG TABLET PO SCH ×2 (11:34→16:39)
[2021-06-19] MEDS: QUETIAPINE FUMARATE 25 MG TAB PO SCH ×2 (11:35→21:24)
[2021-06-19] MEDS: ACETAMINOPHEN 325 MG TAB PO PRN ×2 (11:35→17:37)
[2021-06-19] MEDS: VANCOMYCIN 1.25GM/NS 250ML IVPB SCH ×4 (11:36→22:09)
[2021-06-19] MEDS ORDERED: ALBUMIN (HUMAN) 25% 50 ML IV SCH ×3 (13:59→21:00)
[2021-06-19] MEDS ORDERED: PHARMACY COMMUNICATION MISC SCH ×2 (14:00→15:00)
[2021-06-19 14:53] LABS: ABG BASE EXCESS 23.9 mmol/L (-2.0-3.0); ABG OXYGEN SATURATION 92.5 % (95.0-99.0); ABG PCO2 74 mmHg (35-48)
[2021-06-19] MEDS: PHENYLEPHRINE HCL 100 MG in 0.9% NACL 250ML 240 ML IV PRN (15:10)
[2021-06-19] MEDS: ALBUMIN (HUMAN) 25% 50 ML IV SCH (21:18)
[2021-06-20] VITALS (63 sets, daily range): BP systolic 72–194; BP diastolic 34–100
[2021-06-20] MEDS: MIDAZOLAM 100MG-0.9% NS 100ML 100 ML IV SCH ×2 (00:40→12:50)
[2021-06-20] MEDS: INSULIN HUMULIN R 100 UNIT/ML 3ML SQ SCH ×4 (00:42→17:36)
[2021-06-20] MEDS: CISATRACURIUM BESYLATE 100 MG in 0.9%NACL 100ML 90 ML IV PRN ×5 (01:20→19:26)
[2021-06-20] MEDS: MIDODRINE HCL 5 MG TABLET PO SCH ×3 (01:23→17:30)
[2021-06-20] MEDS ORDERED: FENTANYL 2500MCG+NS 250ML 250 ML IV ONE ×2 (02:52→14:13)
[2021-06-20] MEDS: DEXMEDETOMIDINE 400MCG/NS100ML IV SCH ×6 (02:59→20:58)
[2021-06-20] MEDS: PROPOFOL 1000 MG/100 ML 100 ML IV PRN ×3 (04:40→23:12)
[2021-06-20] MEDS: ALBUMIN (HUMAN) 25% 50 ML IV SCH ×3 (04:55→20:44)
[2021-06-20] MEDS: FUROSEMIDE 40MG VIAL IV SCH ×3 (04:56→20:45)
[2021-06-20] MEDS: IPRATROPIUM/ALBUTEROL SULFATE 3 ML SOLUTION IH SCH ×5 (06:00→23:14)
[2021-06-20] MEDS: ACETYLCYSTEINE 10% 100MG/ML 4ML VIAL IH SCH ×5 (06:00→23:14)
[2021-06-20 06:50] LABS: BASOPHILS % (AUTO) 0.3 % (0.0-5.0); EOSINOPHILS % (AUTO) 0.3 % (0.0-8.0); HEMATOCRIT 25.6 % (42-54); LYMPHOCYTES % (AUTO) 6.7 % (21.0-51.0); MEAN CORPUSCULAR HGB CONC 30.1 g/dL (32.0-36.0); MEAN CORPUSCULAR VOLUME 99.6 fL (79-99); NUCLEATED RED BLOOD CELLS 0.4 % (0.0-0.19); PLATELET COUNT (AUTO) 298 K/uL (130-400); RED BLOOD CELL COUNT(AUTO) 2.57 MIL/uL (4.50-6.20); RED CELL DISTRIBUTION WIDTH 18.4 % (11.0-15.5); WHITE BLOOD COUNT (AUTO) 13.1 K/uL (4.8-10.8)
[2021-06-20 07:21] LABS: ALBUMIN 2.5 g/dL (3.5-5.0); BILIRUBIN,TOTAL 0.7 mg/dL (0.2-1.0); CREATININE 0.8 mg/dL (0.5-1.5); THYROID STIMULATING HORMONE 0.58 uIU/mL (0.36-3.74); TOTAL PROTEIN, SERUM 5.4 g/dL (6.0-8.3)
[2021-06-20 07:31] LABS: ABG BASE EXCESS 21.1 mmol/L (-2.0-3.0); ABG HCO3 49.6 mmol/L (21.0-28.0); ABG OXYGEN SATURATION 65.2 % (95.0-99.0); ABG PCO2 88 mmHg (35-48)
[2021-06-20 07:41] LABS: ABG BASE EXCESS 20.2 mmol/L (-2.0-3.0); ABG HCO3 48.5 mmol/L (21.0-28.0); ABG OXYGEN SATURATION 95.6 % (95.0-99.0); ABG PCO2 85 mmHg (35-48)
[2021-06-20 07:52] LABS: POTASSIUM 2.9 mmol/L (3.5-5.1)
[2021-06-20] MEDS ORDERED: LIDOCAINE HCL-MPF 1% 2ML VIAL IV PRN (08:00)
[2021-06-20] MEDS: SOLU-MEDROL 40MG VIAL IVP SCH ×2 (08:29→20:46)
[2021-06-20] MEDS: DOCUSATE NA 100MG/10ML UDCUP PO SCH ×2 (08:29→20:46)
[2021-06-20] MEDS: ASPIRIN 81MG CHEW TAB PO SCH (08:29)
[2021-06-20] MEDS: PANTOPRAZOLE 40 MG/VIAL IVP SCH ×2 (08:29→20:45)
[2021-06-20] MEDS: ENOXAPARIN SODIUM 100 MG/1 ML SQ SCH ×2 (08:30→20:45)
[2021-06-20] MEDS: QUETIAPINE FUMARATE 25 MG TAB PO SCH ×2 (08:31→20:45)
[2021-06-20] MEDS: KCL 20 MEQ ERTAB PO PRN ×2 (08:31→12:49)
[2021-06-20] MEDS: MEROPENEM 1 GM VIAL IVP SCH ×2 (08:31→20:54)
[2021-06-20] MEDS: BALSAM PERU/CASTOR OIL 60 GM TUBE TP SCH ×3 (08:31→21:18)
[2021-06-20] MEDS: POLYETHYLENE GLYCOL 3350 17 GM POWD.PACK PO SCH (08:31)
[2021-06-20] MEDS: VANCOMYCIN 1.25GM/NS 250ML IVPB SCH ×4 (08:32→20:56)
[2021-06-20] MEDS: KETAMINE 50MG/ML SYRINGE 500 MG in 0.9% NACL 500ML IV.SOLN 500 ML IV PRN (08:34)
[2021-06-20] MEDS: POTASSIUM CHLORIDE 20MEQ/100ML 100 ML IV PRN (08:37)
[2021-06-20] MEDS: MAGNESIUM 2GM PREMIX 50ML 50 ML IV PRN (10:19)
[2021-06-20] MEDS ORDERED: ACETAZOLAMIDE SODIUM 500 MG VIAL IV SCH (17:30)
[2021-06-21] VITALS (39 sets, daily range): BP systolic 94–173; BP diastolic 49–99
[2021-06-21] MEDS: DEXMEDETOMIDINE 400MCG/NS100ML IV SCH ×8 (00:09→22:22)
[2021-06-21] MEDS: MIDAZOLAM 100MG-0.9% NS 100ML 100 ML IV SCH ×3 (00:09→19:45)
[2021-06-21] MEDS: INSULIN HUMULIN R 100 UNIT/ML 3ML SQ SCH ×5 (00:11→23:59)
[2021-06-21] MEDS: MIDODRINE HCL 5 MG TABLET PO SCH ×3 (00:11→16:04)
[2021-06-21] MEDS: CISATRACURIUM BESYLATE 100 MG in 0.9%NACL 100ML 90 ML IV PRN ×5 (03:28→19:45)
[2021-06-21] MEDS: ALBUMIN (HUMAN) 25% 50 ML IV SCH (03:56)
[2021-06-21] MEDS: FUROSEMIDE 40MG VIAL IV SCH (03:57)
[2021-06-21] MEDS ORDERED: FENTANYL 2500MCG+NS 250ML 250 ML IV ONE (05:50)
[2021-06-21] MEDS: PROPOFOL 1000 MG/100 ML 100 ML IV PRN ×5 (05:51→22:22)
[2021-06-21 06:39] LABS: BASOPHILS % (AUTO) 0.1 % (0.0-5.0); EOSINOPHILS % (AUTO) 0.4 % (0.0-8.0); LYMPHOCYTES % (AUTO) 4.3 % (21.0-51.0); MEAN CORPUSCULAR HEMOGLOBIN 30.5 pg (27.0-33.0); MEAN CORPUSCULAR HGB CONC 30.9 g/dL (32.0-36.0); MEAN CORPUSCULAR VOLUME 98.7 fL (79-99); MONOCYTES % (AUTO) 7.4 % (3.0-13.0); NEUTROPHILS % (AUTO) 85.8 % (40.0-77.0); PLATELET COUNT (AUTO) 296 K/uL (130-400); RED BLOOD CELL COUNT(AUTO) 2.23 MIL/uL (4.50-6.20); RED CELL DISTRIBUTION WIDTH 18.6 % (11.0-15.5); WHITE BLOOD COUNT (AUTO) 8.2 K/uL (4.8-10.8)
[2021-06-21 06:44] LABS: ABG BASE EXCESS 25.4 mmol/L (-2.0-3.0); ABG HCO3 52.5 mmol/L (21.0-28.0); ABG OXYGEN SATURATION 87.9 % (95.0-99.0); ABG PCO2 77 mmHg (35-48)
[2021-06-21] MEDS: IPRATROPIUM/ALBUTEROL SULFATE 3 ML SOLUTION IH SCH ×4 (06:44→23:39)
[2021-06-21] MEDS: ACETYLCYSTEINE 10% 100MG/ML 4ML VIAL IH SCH ×4 (06:45→23:39)
[2021-06-21 07:09] LABS: ALBUMIN 2.6 g/dL (3.5-5.0); BILIRUBIN,TOTAL 0.5 mg/dL (0.2-1.0); CREATININE 0.7 mg/dL (0.5-1.5); CRP QUANTITATIVE 58.9 mg/L (0.00-9.0); TOTAL PROTEIN, SERUM 5.3 g/dL (6.0-8.3)
[2021-06-21 07:28] LABS: HEMATOCRIT 22.2 % (42-54)
[2021-06-21 07:56] LABS: POTASSIUM 3.4 mmol/L (3.5-5.1)
[2021-06-21] MEDS ORDERED: FENTANYL CITRATE PF 0.05 MG/ML 1,000 MCG in 0.9%NACL 100ML 100 ML IVPB PRN (08:00)
[2021-06-21] MEDS: SOLU-MEDROL 40MG VIAL IVP SCH ×2 (08:07→20:51)
[2021-06-21] MEDS: PANTOPRAZOLE 40 MG/VIAL IVP SCH ×2 (08:07→20:50)
[2021-06-21] MEDS: POLYETHYLENE GLYCOL 3350 17 GM POWD.PACK PO SCH (08:08)
[2021-06-21] MEDS: BALSAM PERU/CASTOR OIL 60 GM TUBE TP SCH ×3 (08:08→20:53)
[2021-06-21] MEDS: VANCOMYCIN 1.25GM/NS 250ML IVPB SCH ×4 (08:08→20:51)
[2021-06-21] MEDS: DOCUSATE NA 100MG/10ML UDCUP PO SCH ×2 (08:08→20:53)
[2021-06-21] MEDS: MEROPENEM 1 GM VIAL IVP SCH ×2 (08:09→20:51)
[2021-06-21] MEDS: ENOXAPARIN SODIUM 100 MG/1 ML SQ SCH ×2 (08:43→20:51)
[2021-06-21] MEDS: POTASSIUM CHLORIDE 10% ELIXIR 20 MEQ/15 ML UDCUP PO PRN (08:44)
[2021-06-21] MEDS: POTASSIUM CHLORIDE 20MEQ/100ML 100 ML IV PRN (08:44)
[2021-06-21] MEDS: QUETIAPINE FUMARATE 25 MG TAB PO SCH ×2 (08:44→20:51)
[2021-06-21] MEDS: IRON SUCROSE COMPLEX 100 MG in 0.9%NACL 50ML 50 ML IV SCH (09:26)
[2021-06-21] MEDS: ACETAZOLAMIDE SODIUM 500 MG VIAL IV SCH (09:26)
[2021-06-21] MEDS ORDERED: COMPOUND IV MISC 1 EACH IVSOLN MISC PRN (09:30)
[2021-06-21] MEDS: FUROSEMIDE 40 MG TABLET PO SCH (16:05)
[2021-06-21] MEDS: FENTANYL 2500MCG+NS 250ML 250 ML IV SCH (18:31)
[2021-06-22] VITALS (18 sets, daily range): BP systolic 102–166; BP diastolic 57–91
[2021-06-22] MEDS: CISATRACURIUM BESYLATE 100 MG in 0.9%NACL 100ML 90 ML IV PRN ×6 (00:42→23:55)
[2021-06-22] MEDS: MIDODRINE HCL 5 MG TABLET PO SCH ×3 (00:45→16:40)
[2021-06-22] MEDS: DEXMEDETOMIDINE 400MCG/NS100ML IV SCH ×8 (01:24→23:53)
[2021-06-22] MEDS: PROPOFOL 1000 MG/100 ML 100 ML IV PRN ×7 (01:25→23:54)
[2021-06-22 03:08] LABS: ABG HCO3 43.5 mmol/L (21.0-28.0); ABG OXYGEN SATURATION 91.9 % (95.0-99.0); ABG PCO2 77 mmHg (35-48)
[2021-06-22 04:39] LABS: BASOPHILS % (AUTO) 0.3 % (0.0-5.0); HEMATOCRIT 25.1 % (42-54); LYMPHOCYTES % (AUTO) 4.5 % (21.0-51.0); MEAN CORPUSCULAR HEMOGLOBIN 29.5 pg (27.0-33.0); MEAN CORPUSCULAR HGB CONC 29.9 g/dL (32.0-36.0); MEAN CORPUSCULAR VOLUME 98.8 fL (79-99); MONOCYTES % (AUTO) 5.9 % (3.0-13.0); NEUTROPHILS % (AUTO) 84.7 % (40.0-77.0); NUCLEATED RED BLOOD CELLS 0.6 % (0.0-0.19); PLATELET COUNT (AUTO) 339 K/uL (130-400); RED BLOOD CELL COUNT(AUTO) 2.54 MIL/uL (4.50-6.20); WHITE BLOOD COUNT (AUTO) 12.6 K/uL (4.8-10.8)
[2021-06-22] MEDS: MIDAZOLAM 100MG-0.9% NS 100ML 100 ML IV SCH ×2 (04:43→16:28)
[2021-06-22 05:11] LABS: ALBUMIN 2.4 g/dL (3.5-5.0); BILIRUBIN,TOTAL 0.5 mg/dL (0.2-1.0); CREATININE 0.7 mg/dL (0.5-1.5); CRP QUANTITATIVE 48.3 mg/L (0.00-9.0); POTASSIUM 3.9 mmol/L (3.5-5.1); TOTAL PROTEIN, SERUM 5.3 g/dL (6.0-8.3)
[2021-06-22] MEDS: INSULIN HUMULIN R 100 UNIT/ML 3ML SQ SCH ×3 (05:16→18:02)
[2021-06-22] MEDS: ACETYLCYSTEINE 10% 100MG/ML 4ML VIAL IH SCH ×3 (06:26→18:34)
[2021-06-22] MEDS: IPRATROPIUM/ALBUTEROL SULFATE 3 ML SOLUTION IH SCH ×3 (06:26→18:34)
[2021-06-22] MEDS: KETAMINE 50MG/ML SYRINGE 500 MG in 0.9% NACL 500ML IV.SOLN 500 ML IV PRN (06:51)
[2021-06-22] MEDS: IRON SUCROSE COMPLEX 100 MG in 0.9%NACL 50ML 50 ML IV SCH (08:26)
[2021-06-22] MEDS: SOLU-MEDROL 40MG VIAL IVP SCH ×2 (08:27→20:47)
[2021-06-22] MEDS: PANTOPRAZOLE 40 MG/VIAL IVP SCH ×2 (08:27→20:46)
[2021-06-22] MEDS: FUROSEMIDE 40 MG TABLET PO SCH ×2 (08:28→16:41)
[2021-06-22] MEDS: FENOFIBRATE NANOCRYSTALLIZED 145 MG TAB PO SCH (08:29)
[2021-06-22] MEDS: POLYETHYLENE GLYCOL 3350 17 GM POWD.PACK PO SCH (08:29)
[2021-06-22] MEDS: QUETIAPINE FUMARATE 25 MG TAB PO SCH ×2 (08:29→20:47)
[2021-06-22] MEDS: BALSAM PERU/CASTOR OIL 60 GM TUBE TP SCH ×3 (08:29→20:48)
[2021-06-22] MEDS: DOCUSATE NA 100MG/10ML UDCUP PO SCH (08:29)
[2021-06-22] MEDS: FENTANYL 2500MCG+NS 250ML 250 ML IV SCH ×2 (08:32→16:40)
[2021-06-22] MEDS: ACETAZOLAMIDE SODIUM 500 MG VIAL IV SCH (08:40)
[2021-06-22] MEDS: VANCOMYCIN 1.25GM/NS 250ML IVPB SCH ×2 (09:00)
[2021-06-22] MEDS: MEROPENEM 1 GM VIAL IVP SCH ×2 (09:10→20:46)
[2021-06-22] MEDS: ENOXAPARIN SODIUM 100 MG/1 ML SQ SCH ×2 (09:11→20:48)
[2021-06-22] MEDS: DOCUSATE SODIUM 100 MG CAP PO SCH (20:49)
[2021-06-22] MEDS: VANCOMYCIN 1G/250ML KIT 250 ML IV SCH (20:51)
[2021-06-23] VITALS (29 sets, daily range): BP systolic 86–126; BP diastolic 40–72
[2021-06-23] MEDS: ACETYLCYSTEINE 10% 100MG/ML 4ML VIAL IH SCH ×2 (00:02→06:00)
[2021-06-23] MEDS: IPRATROPIUM/ALBUTEROL SULFATE 3 ML SOLUTION IH SCH ×2 (00:02→06:00)
[2021-06-23] MEDS: MIDAZOLAM 100MG-0.9% NS 100ML 100 ML IV SCH ×4 (00:37→19:05)
[2021-06-23] MEDS: MIDODRINE HCL 5 MG TABLET PO SCH ×3 (00:37→17:39)
[2021-06-23] MEDS: INSULIN HUMULIN R 100 UNIT/ML 3ML SQ SCH ×3 (00:40→11:57)
[2021-06-23] MEDS: DEXMEDETOMIDINE 400MCG/NS100ML IV SCH ×7 (02:39→19:07)
[2021-06-23] MEDS: PROPOFOL 1000 MG/100 ML 100 ML IV PRN ×7 (02:39→22:20)
[2021-06-23 03:41] LABS: ABG BASE EXCESS 10.8 mmol/L (-2.0-3.0); ABG HCO3 39.4 mmol/L (21.0-28.0); ABG OXYGEN SATURATION 94.6 % (95.0-99.0); ABG PCO2 85 mmHg (35-48)
[2021-06-23] MEDS: CISATRACURIUM BESYLATE 100 MG in 0.9%NACL 100ML 90 ML IV PRN ×5 (03:53→21:10)
[2021-06-23] MEDS: FENTANYL 2500MCG+NS 250ML 250 ML IV SCH ×3 (03:57→19:06)
[2021-06-23 04:24] LABS: BASOPHILS % (AUTO) 0.4 % (0.0-5.0); EOSINOPHILS % (AUTO) 1.6 % (0.0-8.0); HEMATOCRIT 25.9 % (42-54); LYMPHOCYTES % (AUTO) 3.8 % (21.0-51.0); MONOCYTES % (AUTO) 5.1 % (3.0-13.0); NEUTROPHILS % (AUTO) 84.5 % (40.0-77.0); NUCLEATED RED BLOOD CELLS 0.7 % (0.0-0.19); PLATELET COUNT (AUTO) 383 K/uL (130-400); RED BLOOD CELL COUNT(AUTO) 2.59 MIL/uL (4.50-6.20); RED CELL DISTRIBUTION WIDTH 19.4 % (11.0-15.5); WHITE BLOOD COUNT (AUTO) 13.5 K/uL (4.8-10.8)
[2021-06-23 04:50] LABS: ALBUMIN 2.1 g/dL (3.5-5.0); BILIRUBIN,TOTAL 0.6 mg/dL (0.2-1.0); CREATININE 0.6 mg/dL (0.5-1.5); CRP QUANTITATIVE 39.7 mg/L (0.00-9.0); POTASSIUM 3.8 mmol/L (3.5-5.1)
[2021-06-23] MEDS: KETAMINE 50MG/ML SYRINGE 500 MG in 0.9% NACL 500ML IV.SOLN 500 ML IV PRN (05:56)
[2021-06-23 06:01] LABS: TOTAL PROTEIN, SERUM 5.2 g/dL (6.0-8.3)
[2021-06-23] MEDS: POLYETHYLENE GLYCOL 3350 17 GM POWD.PACK PO SCH (08:19)
[2021-06-23] MEDS: ACETAZOLAMIDE SODIUM 500 MG VIAL IV SCH (08:19)
[2021-06-23] MEDS: VANCOMYCIN 1G/250ML KIT 250 ML IV SCH ×2 (08:19→20:45)
[2021-06-23] MEDS: PANTOPRAZOLE 40 MG/VIAL IVP SCH ×2 (08:20→20:45)
[2021-06-23] MEDS: FENOFIBRATE NANOCRYSTALLIZED 145 MG TAB PO SCH (08:20)
[2021-06-23] MEDS: DOCUSATE SODIUM 100 MG CAP PO SCH ×2 (08:20→20:45)
[2021-06-23] MEDS: SOLU-MEDROL 40MG VIAL IVP SCH ×2 (08:20→20:45)
[2021-06-23] MEDS: IRON SUCROSE COMPLEX 100 MG in 0.9%NACL 50ML 50 ML IV SCH (08:20)
[2021-06-23] MEDS: QUETIAPINE FUMARATE 25 MG TAB PO SCH ×2 (08:20→20:45)
[2021-06-23] MEDS: FUROSEMIDE 40 MG TABLET PO SCH ×2 (08:21→15:42)
[2021-06-23] MEDS: MEROPENEM 1 GM VIAL IVP SCH ×2 (08:21→21:25)
[2021-06-23] MEDS: ENOXAPARIN SODIUM 100 MG/1 ML SQ SCH ×2 (08:22→20:46)
[2021-06-23] MEDS: BALSAM PERU/CASTOR OIL 60 GM TUBE TP SCH ×3 (08:22→20:46)
[2021-06-23] MEDS ORDERED: FUROSEMIDE 20MG VIAL IV SCH (09:30)
[2021-06-24] VITALS (29 sets, daily range): BP systolic 97–183; BP diastolic 52–97
[2021-06-24] MEDS: INSULIN HUMULIN R 100 UNIT/ML 3ML SQ SCH ×4 (00:08→17:47)
[2021-06-24] MEDS: DEXMEDETOMIDINE 400MCG/NS100ML IV SCH ×7 (00:17→20:10)
[2021-06-24] MEDS: CISATRACURIUM BESYLATE 100 MG in 0.9%NACL 100ML 90 ML IV PRN ×4 (01:25→20:09)
[2021-06-24] MEDS: MIDODRINE HCL 5 MG TABLET PO SCH ×3 (01:25→17:20)
[2021-06-24] MEDS: PROPOFOL 1000 MG/100 ML 100 ML IV PRN ×5 (02:05→20:09)
[2021-06-24 04:30] LABS: BASOPHILS % (AUTO) 0.4 % (0.0-5.0); EOSINOPHILS % (AUTO) 0.4 % (0.0-8.0); HEMATOCRIT 28.2 % (42-54); LYMPHOCYTES % (AUTO) 3.5 % (21.0-51.0); MEAN CORPUSCULAR HEMOGLOBIN 32.2 pg (27.0-33.0); MEAN CORPUSCULAR HGB CONC 30.1 g/dL (32.0-36.0); MEAN CORPUSCULAR VOLUME 106.8 fL (79-99); MONOCYTES % (AUTO) 4.2 % (3.0-13.0); NEUTROPHILS % (AUTO) 86.6 % (40.0-77.0); NUCLEATED RED BLOOD CELLS 2.5 % (0.0-0.19); PLATELET COUNT (AUTO) 383 K/uL (130-400); RED BLOOD CELL COUNT(AUTO) 2.64 MIL/uL (4.50-6.20); RED CELL DISTRIBUTION WIDTH 19.6 % (11.0-15.5); WHITE BLOOD COUNT (AUTO) 11.6 K/uL (4.8-10.8)
[2021-06-24 04:37] LABS: BILIRUBIN,TOTAL 0.7 mg/dL (0.2-1.0); CREATININE 0.5 mg/dL (0.5-1.5); CRP QUANTITATIVE 49.6 mg/L (0.00-9.0); POTASSIUM 3.5 mmol/L (3.5-5.1); TOTAL PROTEIN, SERUM 5.2 g/dL (6.0-8.3)
[2021-06-24] MEDS: FENTANYL 2500MCG+NS 250ML 250 ML IV SCH ×3 (04:44→20:11)
[2021-06-24] MEDS: VANCOMYCIN 1G/250ML KIT 250 ML IV SCH ×2 (08:51→20:04)
[2021-06-24] MEDS: FENOFIBRATE NANOCRYSTALLIZED 145 MG TAB PO SCH (08:51)
[2021-06-24] MEDS: DOCUSATE SODIUM 100 MG CAP PO SCH ×2 (08:51→20:05)
[2021-06-24] MEDS: MEROPENEM 1 GM VIAL IVP SCH ×2 (08:51→20:08)
[2021-06-24] MEDS: ACETAZOLAMIDE SODIUM 500 MG VIAL IV SCH (08:51)
[2021-06-24] MEDS: SOLU-MEDROL 40MG VIAL IVP SCH ×2 (08:52→20:04)
[2021-06-24] MEDS: FUROSEMIDE 40 MG TABLET PO SCH ×2 (08:52→17:20)
[2021-06-24] MEDS: QUETIAPINE FUMARATE 25 MG TAB PO SCH ×2 (08:52→20:06)
[2021-06-24] MEDS: POLYETHYLENE GLYCOL 3350 17 GM POWD.PACK PO SCH (08:52)
[2021-06-24] MEDS: BALSAM PERU/CASTOR OIL 60 GM TUBE TP SCH ×3 (08:52→20:05)
[2021-06-24] MEDS: ENOXAPARIN SODIUM 100 MG/1 ML SQ SCH ×2 (08:53→20:05)
[2021-06-24] MEDS: PANTOPRAZOLE 40 MG/VIAL IVP SCH ×2 (09:00→20:04)
[2021-06-24] MEDS: IRON SUCROSE COMPLEX 100 MG in 0.9%NACL 50ML 50 ML IV SCH (10:51)
[2021-06-24] MEDS: MIDAZOLAM 100MG-0.9% NS 100ML 100 ML IV SCH (10:52)
[2021-06-25] VITALS (24 sets, daily range): BP systolic 81–154; BP diastolic 41–84
[2021-06-25] MEDS: DEXMEDETOMIDINE 400MCG/NS100ML IV SCH ×7 (00:36→22:19)
[2021-06-25] MEDS: KETAMINE 50MG/ML SYRINGE 500 MG in 0.9% NACL 500ML IV.SOLN 500 ML IV PRN ×2 (00:37→13:27)
[2021-06-25] MEDS: CISATRACURIUM BESYLATE 100 MG in 0.9%NACL 100ML 90 ML IV PRN ×5 (01:00→20:07)
[2021-06-25] MEDS: MIDODRINE HCL 5 MG TABLET PO SCH ×3 (01:21→17:41)
[2021-06-25] MEDS: MIDAZOLAM 100MG-0.9% NS 100ML 100 ML IV SCH ×3 (01:56→23:36)
[2021-06-25] MEDS: INSULIN HUMULIN R 100 UNIT/ML 3ML SQ SCH ×5 (01:56→23:35)
[2021-06-25 03:36] LABS: ABG BASE EXCESS 15.9 mmol/L (-2.0-3.0); ABG HCO3 47.7 mmol/L (21.0-28.0); ABG OXYGEN SATURATION 76.5 % (95.0-99.0); ABG PCO2 124 mmHg (35-48)
[2021-06-25 04:25] LABS: BASOPHILS % (AUTO) 0.4 % (0.0-5.0); EOSINOPHILS % (AUTO) 0.4 % (0.0-8.0); LYMPHOCYTES % (AUTO) 3.2 % (21.0-51.0); MEAN CORPUSCULAR HEMOGLOBIN 31.8 pg (27.0-33.0); MEAN CORPUSCULAR HGB CONC 30.7 g/dL (32.0-36.0); MEAN CORPUSCULAR VOLUME 103.4 fL (79-99); MONOCYTES % (AUTO) 6.4 % (3.0-13.0); NEUTROPHILS % (AUTO) 86.7 % (40.0-77.0); NUCLEATED RED BLOOD CELLS 0.7 % (0.0-0.19); PLATELET COUNT (AUTO) 395 K/uL (130-400); RED BLOOD CELL COUNT(AUTO) 2.61 MIL/uL (4.50-6.20); RED CELL DISTRIBUTION WIDTH 20.1 % (11.0-15.5); WHITE BLOOD COUNT (AUTO) 13.7 K/uL (4.8-10.8)
[2021-06-25 04:45] LABS: BILIRUBIN,TOTAL 0.6 mg/dL (0.2-1.0); CREATININE 0.4 mg/dL (0.5-1.5); CRP QUANTITATIVE 67.7 mg/L (0.00-9.0); POTASSIUM 3.4 mmol/L (3.5-5.1); TOTAL PROTEIN, SERUM 5.2 g/dL (6.0-8.3)
[2021-06-25] MEDS: PROPOFOL 1000 MG/100 ML 100 ML IV PRN ×2 (05:49→08:03)
[2021-06-25] MEDS: PANTOPRAZOLE 40 MG/VIAL IVP SCH ×2 (07:57→22:19)
[2021-06-25] MEDS: SOLU-MEDROL 40MG VIAL IVP SCH ×2 (07:57→22:19)
[2021-06-25] MEDS: FUROSEMIDE 40 MG TABLET PO SCH ×2 (07:58→17:41)
[2021-06-25] MEDS: DOCUSATE SODIUM 100 MG CAP PO SCH ×2 (07:58→21:00)
[2021-06-25] MEDS: POLYETHYLENE GLYCOL 3350 17 GM POWD.PACK PO SCH (07:58)
[2021-06-25] MEDS: VANCOMYCIN 1G/250ML KIT 250 ML IV SCH ×2 (07:58→22:19)
[2021-06-25] MEDS: FENOFIBRATE NANOCRYSTALLIZED 145 MG TAB PO SCH (07:58)
[2021-06-25] MEDS: ENOXAPARIN SODIUM 100 MG/1 ML SQ SCH ×2 (07:59→22:20)
[2021-06-25] MEDS: QUETIAPINE FUMARATE 25 MG TAB PO SCH ×2 (08:02→22:20)
[2021-06-25] MEDS: BALSAM PERU/CASTOR OIL 60 GM TUBE TP SCH ×3 (08:04→22:20)
[2021-06-25] MEDS: ACETAZOLAMIDE SODIUM 500 MG VIAL IV SCH (10:30)
[2021-06-25] MEDS: IRON SUCROSE COMPLEX 100 MG in 0.9%NACL 50ML 50 ML IV SCH (10:30)
[2021-06-25] MEDS: MEROPENEM 1 GM VIAL IVP SCH (10:33)
[2021-06-25] MEDS: FENTANYL 2500MCG+NS 250ML 250 ML IV SCH ×2 (13:27→22:19)
[2021-06-25] MEDS: POTASSIUM CHLORIDE 10% ELIXIR 20 MEQ/15 ML UDCUP PO PRN (18:18)
[2021-06-25] MEDS: CEFTRIAXONE 1G VIAL IVP SCH (22:19)
[2021-06-26] VITALS (25 sets, daily range): BP systolic 93–159; BP diastolic 51–90
[2021-06-26] MEDS: PROPOFOL 1000 MG/100 ML 100 ML IV PRN ×5 (01:05→15:34)
[2021-06-26] MEDS: MIDODRINE HCL 5 MG TABLET PO SCH ×3 (01:14→17:04)
[2021-06-26] MEDS: DEXMEDETOMIDINE 400MCG/NS100ML IV SCH ×6 (01:30→20:46)
[2021-06-26] MEDS: KETAMINE 50MG/ML SYRINGE 500 MG in 0.9% NACL 500ML IV.SOLN 500 ML IV PRN ×2 (01:31→14:05)
[2021-06-26] MEDS: CISATRACURIUM BESYLATE 100 MG in 0.9%NACL 100ML 90 ML IV PRN ×4 (02:54→22:07)
[2021-06-26 03:56] LABS: ABG BASE EXCESS 20.3 mmol/L (-2.0-3.0); ABG HCO3 50.8 mmol/L (21.0-28.0); ABG OXYGEN SATURATION 93.7 % (95.0-99.0); ABG PCO2 118 mmHg (35-48)
[2021-06-26 05:30] LABS: BASOPHILS % (AUTO) 0.5 % (0.0-5.0); EOSINOPHILS % (AUTO) 0.1 % (0.0-8.0); HEMATOCRIT 26.7 % (42-54); LYMPHOCYTES % (AUTO) 2.6 % (21.0-51.0); MEAN CORPUSCULAR HEMOGLOBIN 32.5 pg (27.0-33.0); MEAN CORPUSCULAR HGB CONC 30.3 g/dL (32.0-36.0); MEAN CORPUSCULAR VOLUME 107.2 fL (79-99); MONOCYTES % (AUTO) 5.4 % (3.0-13.0); NEUTROPHILS % (AUTO) 88.7 % (40.0-77.0); NUCLEATED RED BLOOD CELLS 0.4 % (0.0-0.19); PLATELET COUNT (AUTO) 388 K/uL (130-400); RED BLOOD CELL COUNT(AUTO) 2.49 MIL/uL (4.50-6.20); RED CELL DISTRIBUTION WIDTH 19.9 % (11.0-15.5); WHITE BLOOD COUNT (AUTO) 10.3 K/uL (4.8-10.8)
[2021-06-26 06:13] LABS: BILIRUBIN,TOTAL 0.6 mg/dL (0.2-1.0); CREATININE 0.5 mg/dL (0.5-1.5); POTASSIUM 3.5 mmol/L (3.5-5.1); TOTAL PROTEIN, SERUM 5.3 g/dL (6.0-8.3)
[2021-06-26] MEDS: FENTANYL 2500MCG+NS 250ML 250 ML IV SCH ×2 (06:29→14:41)
[2021-06-26] MEDS: INSULIN HUMULIN R 100 UNIT/ML 3ML SQ SCH ×3 (06:38→17:54)
[2021-06-26] MEDS: MIDAZOLAM 100MG-0.9% NS 100ML 100 ML IV SCH ×2 (06:38→15:34)
[2021-06-26] MEDS: FUROSEMIDE 40 MG TABLET PO SCH ×2 (08:44→17:03)
[2021-06-26] MEDS: FENOFIBRATE NANOCRYSTALLIZED 145 MG TAB PO SCH (08:44)
[2021-06-26] MEDS: ENOXAPARIN SODIUM 100 MG/1 ML SQ SCH ×2 (08:44→20:48)
[2021-06-26] MEDS: QUETIAPINE FUMARATE 25 MG TAB PO SCH ×2 (08:44→20:55)
[2021-06-26] MEDS: SOLU-MEDROL 40MG VIAL IVP SCH ×2 (08:44→20:48)
[2021-06-26] MEDS: PANTOPRAZOLE 40 MG/VIAL IVP SCH ×2 (08:44→20:48)
[2021-06-26] MEDS: POLYETHYLENE GLYCOL 3350 17 GM POWD.PACK PO SCH (08:45)
[2021-06-26] MEDS: BALSAM PERU/CASTOR OIL 60 GM TUBE TP SCH ×3 (08:45→20:56)
[2021-06-26] MEDS: DOCUSATE SODIUM 100 MG CAP PO SCH ×2 (08:45→20:57)
[2021-06-26] MEDS: POTASSIUM CHLORIDE 10% ELIXIR 20 MEQ/15 ML UDCUP PO PRN ×2 (08:46→17:07)
[2021-06-26] MEDS: ACETAZOLAMIDE SODIUM 500 MG VIAL IV SCH (09:11)
[2021-06-26] MEDS: VANCOMYCIN 1G/250ML KIT 250 ML IV SCH ×2 (09:35→20:56)
[2021-06-26] MEDS: IRON SUCROSE COMPLEX 100 MG in 0.9%NACL 50ML 50 ML IV SCH (09:39)
[2021-06-26] MEDS: FLUCONAZOLE 200 MG/NS 100 ML 100 ML IV SCH (09:40)
[2021-06-26] MEDS ORDERED: FENTANYL CITRATE PF 0.05 MG/ML 1,000 MCG in 0.9%NACL 100ML 100 ML IVPB SCH (14:30)
[2021-06-26] MEDS: CEFTRIAXONE 1G VIAL IVP SCH (20:48)
[2021-06-26] MEDS: INSULIN GLARGINE 100 UNITS/ML 10 ML VIAL SQ SCH (20:49)
[2021-06-26] MEDS: CLONAZEPAM 1MG TAB PO SCH (20:55)
[2021-06-27] VITALS (57 sets, daily range): BP systolic 82–130; BP diastolic 41–76
[2021-06-27] MEDS: PROPOFOL 1000 MG/100 ML 100 ML IV PRN ×5 (00:09→19:03)
[2021-06-27] MEDS: CISATRACURIUM BESYLATE 100 MG in 0.9%NACL 100ML 90 ML IV PRN ×6 (00:31→22:55)
[2021-06-27] MEDS: DEXMEDETOMIDINE 400MCG/NS100ML IV SCH ×7 (01:03→20:22)
[2021-06-27] MEDS: MIDODRINE HCL 5 MG TABLET PO SCH ×3 (01:23→17:11)
[2021-06-27] MEDS: FENTANYL 2500MCG+NS 250ML 250 ML IV SCH ×3 (01:25→20:23)
[2021-06-27] MEDS: KETAMINE 50MG/ML SYRINGE 500 MG in 0.9% NACL 500ML IV.SOLN 500 ML IV PRN ×2 (01:25→14:34)
[2021-06-27 02:58] LABS: ABG BASE EXCESS 15.6 mmol/L (-2.0-3.0); ABG HCO3 45.3 mmol/L (21.0-28.0); ABG OXYGEN SATURATION 79.3 % (95.0-99.0); ABG PCO2 106 mmHg (35-48)
[2021-06-27] MEDS: MIDAZOLAM 100MG-0.9% NS 100ML 100 ML IV SCH ×3 (03:00→23:25)
[2021-06-27 04:18] LABS: BASOPHILS % (AUTO) 0.3 % (0.0-5.0); EOSINOPHILS % (AUTO) 0.3 % (0.0-8.0); HEMATOCRIT 24.5 % (42-54); LYMPHOCYTES % (AUTO) 2.9 % (21.0-51.0); MONOCYTES % (AUTO) 5.5 % (3.0-13.0); NEUTROPHILS % (AUTO) 87.4 % (40.0-77.0); NUCLEATED RED BLOOD CELLS 0.7 % (0.0-0.19); PLATELET COUNT (AUTO) 369 K/uL (130-400); RED BLOOD CELL COUNT(AUTO) 2.29 MIL/uL (4.50-6.20); RED CELL DISTRIBUTION WIDTH 20.1 % (11.0-15.5); WHITE BLOOD COUNT (AUTO) 8.8 K/uL (4.8-10.8)
[2021-06-27 04:36] LABS: BILIRUBIN,TOTAL 0.5 mg/dL (0.2-1.0); CREATININE 0.4 mg/dL (0.5-1.5); CRP QUANTITATIVE 63.9 mg/L (0.00-9.0); POTASSIUM 3.9 mmol/L (3.5-5.1); TOTAL PROTEIN, SERUM 5.2 g/dL (6.0-8.3)
[2021-06-27] MEDS: INSULIN HUMULIN R 100 UNIT/ML 3ML SQ SCH ×4 (05:38→17:40)
[2021-06-27] MEDS: POLYETHYLENE GLYCOL 3350 17 GM POWD.PACK PO SCH (08:03)
[2021-06-27] MEDS: FLUCONAZOLE 200 MG/NS 100 ML 100 ML IV SCH (08:03)
[2021-06-27] MEDS: CLONAZEPAM 1MG TAB PO SCH ×2 (08:04→21:06)
[2021-06-27] MEDS: DOCUSATE SODIUM 100 MG CAP PO SCH ×2 (08:04→21:00)
[2021-06-27] MEDS: PANTOPRAZOLE 40 MG/VIAL IVP SCH ×2 (08:04→21:06)
[2021-06-27] MEDS: FUROSEMIDE 40 MG TABLET PO SCH ×2 (08:04→17:10)
[2021-06-27] MEDS: FENOFIBRATE NANOCRYSTALLIZED 145 MG TAB PO SCH (08:04)
[2021-06-27] MEDS: ENOXAPARIN SODIUM 100 MG/1 ML SQ SCH ×2 (08:14→21:05)
[2021-06-27] MEDS: BALSAM PERU/CASTOR OIL 60 GM TUBE TP SCH ×3 (08:14→21:09)
[2021-06-27] MEDS: QUETIAPINE FUMARATE 25 MG TAB PO SCH ×2 (08:20→21:09)
[2021-06-27] MEDS: ACETAZOLAMIDE SODIUM 500 MG VIAL IV SCH (08:28)
[2021-06-27] MEDS: IRON SUCROSE COMPLEX 100 MG in 0.9%NACL 50ML 50 ML IV SCH (08:28)
[2021-06-27] MEDS ORDERED: SOLU-MEDROL 40MG VIAL IVP SCH (14:00)
[2021-06-27] MEDS: CEFTRIAXONE 1G VIAL IVP SCH (21:05)
[2021-06-27] MEDS: SOLU-MEDROL 40MG VIAL IVP SCH (21:06)
[2021-06-27] MEDS: INSULIN GLARGINE 100 UNITS/ML 10 ML VIAL SQ SCH (21:07)
[2021-06-28] VITALS (43 sets, daily range): BP systolic 95–182; BP diastolic 52–99
[2021-06-28] MEDS: INSULIN HUMULIN R 100 UNIT/ML 3ML SQ SCH ×4 (00:36→18:12)
[2021-06-28] MEDS: CISATRACURIUM BESYLATE 100 MG in 0.9%NACL 100ML 90 ML IV PRN ×6 (00:49→22:18)
[2021-06-28] MEDS: MIDODRINE HCL 5 MG TABLET PO SCH ×3 (01:30→18:06)
[2021-06-28] MEDS: KETAMINE 50MG/ML SYRINGE 500 MG in 0.9% NACL 500ML IV.SOLN 500 ML IV PRN ×4 (01:54→22:17)
[2021-06-28] MEDS: DEXMEDETOMIDINE 400MCG/NS100ML IV SCH ×8 (04:38→23:23)
[2021-06-28] MEDS: FENTANYL 2500MCG+NS 250ML 250 ML IV SCH ×3 (04:40→23:25)
[2021-06-28 06:24] LABS: BASOPHILS % (AUTO) 0.7 % (0.0-5.0); EOSINOPHILS % (AUTO) 1.2 % (0.0-8.0); LYMPHOCYTES % (AUTO) 4.8 % (21.0-51.0); MEAN CORPUSCULAR HGB CONC 27.6 g/dL (32.0-36.0); MEAN CORPUSCULAR VOLUME 112.4 fL (79-99); MONOCYTES % (AUTO) 6.5 % (3.0-13.0); NEUTROPHILS % (AUTO) 80.2 % (40.0-77.0); NUCLEATED RED BLOOD CELLS 2.9 % (0.0-0.19); PLATELET COUNT (AUTO) 386 K/uL (130-400); RED BLOOD CELL COUNT(AUTO) 2.58 MIL/uL (4.50-6.20); RED CELL DISTRIBUTION WIDTH 20.8 % (11.0-15.5)
[2021-06-28 06:37] LABS: ALBUMIN 2.1 g/dL (3.5-5.0); BILIRUBIN,TOTAL 0.4 mg/dL (0.2-1.0); CREATININE 0.4 mg/dL (0.5-1.5); TOTAL PROTEIN, SERUM 5.7 g/dL (6.0-8.3); VANCOMYCIN LEVEL 12.3 mcg/mL (18.0-26.0)
[2021-06-28] MEDS: CLONAZEPAM 1MG TAB PO SCH (08:14)
[2021-06-28] MEDS: DOCUSATE SODIUM 100 MG CAP PO SCH ×2 (08:14→21:00)
[2021-06-28] MEDS: FLUCONAZOLE 200 MG/NS 100 ML 100 ML IV SCH (08:14)
[2021-06-28] MEDS: POLYETHYLENE GLYCOL 3350 17 GM POWD.PACK PO SCH (08:15)
[2021-06-28] MEDS: SOLU-MEDROL 40MG VIAL IVP SCH ×2 (08:15→20:38)
[2021-06-28] MEDS: FENOFIBRATE NANOCRYSTALLIZED 145 MG TAB PO SCH (08:15)
[2021-06-28] MEDS: PANTOPRAZOLE 40 MG/VIAL IVP SCH ×2 (08:15→20:38)
[2021-06-28] MEDS: QUETIAPINE FUMARATE 25 MG TAB PO SCH ×2 (08:15→20:38)
[2021-06-28] MEDS: FUROSEMIDE 40 MG TABLET PO SCH (08:15)
[2021-06-28] MEDS: BALSAM PERU/CASTOR OIL 60 GM TUBE TP SCH ×3 (08:16→20:45)
[2021-06-28] MEDS: ENOXAPARIN SODIUM 100 MG/1 ML SQ SCH ×2 (08:16→20:40)
[2021-06-28] MEDS: ACETAZOLAMIDE SODIUM 500 MG VIAL IV SCH (08:27)
[2021-06-28] MEDS: IRON SUCROSE COMPLEX 100 MG in 0.9%NACL 50ML 50 ML IV SCH (08:55)
[2021-06-28] MEDS ORDERED: 0.9% NACL 250ML 250 ML IV SCH (09:00)
[2021-06-28] MEDS ORDERED: VANCOMYCIN 750MG VIAL IVPB SCH (09:00)
[2021-06-28] MEDS: MIDAZOLAM 100MG-0.9% NS 100ML 100 ML IV SCH ×2 (09:16→18:34)
[2021-06-28] MEDS: SODIUM CHLORIDE 7% INHALATION 4 ML VIAL.NEB IH SCH ×2 (12:08→18:00)
[2021-06-28] MEDS: IPRATROPIUM 0.5 MG/2.5 ML INH IH SCH ×2 (12:10→18:00)
[2021-06-28] MEDS ORDERED: PHARMACY COMMUNICATION MISC SCH ×2 (15:00→16:00)
[2021-06-28] MEDS ORDERED: FUROSEMIDE 40MG VIAL IV SCH (15:00)
[2021-06-28] MEDS: DIAZEPAM 5 MG TABLET PEG SCH (18:06)
[2021-06-28] MEDS ORDERED: METHADONE HCL 10 MG TABLET PO SCH (20:00)
[2021-06-28] MEDS: ATORVASTATIN 20 MG TABLET PEG SCH (20:38)
[2021-06-28] MEDS: FUROSEMIDE 40MG VIAL IV SCH (20:38)
[2021-06-28] MEDS: FISH OIL 1000 MG/CAP PEG SCH (20:38)
[2021-06-28] MEDS: CEFTRIAXONE 1G VIAL IVP SCH (20:38)
[2021-06-28] MEDS: METHADONE HCL 10 MG TABLET PO SCH (20:39)
[2021-06-28] MEDS: INSULIN GLARGINE 100 UNITS/ML 10 ML VIAL SQ SCH (20:42)
[2021-06-28] MEDS ORDERED: FENTANYL 100 MCG/HR PATCH TD SCH (21:00)
[2021-06-28] MEDS ORDERED: EPOETIN ALFA-EPBX (NON-ESRD) 10,000 UNIT/ML VIAL SQ SCH (21:00)
[2021-06-28] MEDS: EZETIMIBE 10 MG TAB PEG SCH (21:05)
[2021-06-29] VITALS (41 sets, daily range): BP systolic 101–192; BP diastolic 56–103
[2021-06-29] MEDS: MIDODRINE HCL 5 MG TABLET PO SCH ×3 (00:35→09:31)
[2021-06-29] MEDS: DIAZEPAM 5 MG TABLET PEG SCH ×3 (00:36→17:26)
[2021-06-29] MEDS: INSULIN HUMULIN R 100 UNIT/ML 3ML SQ SCH ×5 (00:37→23:36)
[2021-06-29] MEDS: DEXMEDETOMIDINE 400MCG/NS100ML IV SCH ×8 (02:18→21:19)
[2021-06-29] MEDS ORDERED: HYDRALAZINE 20MG/ML VIAL IV PRN (02:42)
[2021-06-29] MEDS: CISATRACURIUM BESYLATE 100 MG in 0.9%NACL 100ML 90 ML IV PRN ×4 (03:03→19:36)
[2021-06-29] MEDS: KETAMINE 50MG/ML SYRINGE 500 MG in 0.9% NACL 500ML IV.SOLN 500 ML IV PRN ×4 (04:06→20:37)
[2021-06-29] MEDS: FUROSEMIDE 40MG VIAL IV SCH ×3 (04:11→20:30)
[2021-06-29] MEDS: LABETALOL 20MG VIAL IV PRN ×2 (04:19→16:29)
[2021-06-29] MEDS: MIDAZOLAM 100MG-0.9% NS 100ML 100 ML IV SCH ×2 (04:36→13:10)
[2021-06-29 04:44] LABS: ABG BASE EXCESS 20.8 mmol/L (-2.0-3.0); ABG HCO3 49.5 mmol/L (21.0-28.0); ABG OXYGEN SATURATION 96.8 % (95.0-99.0); ABG PCO2 95 mmHg (35-48)
[2021-06-29 05:16] LABS: BASOPHILS % (AUTO) 0.5 % (0.0-5.0); EOSINOPHILS % (AUTO) 0.3 % (0.0-8.0); LYMPHOCYTES % (AUTO) 4.7 % (21.0-51.0); MEAN CORPUSCULAR HEMOGLOBIN 30.2 pg (27.0-33.0); MEAN CORPUSCULAR HGB CONC 27.2 g/dL (32.0-36.0); MEAN CORPUSCULAR VOLUME 110.7 fL (79-99); MONOCYTES % (AUTO) 7.7 % (3.0-13.0); NEUTROPHILS % (AUTO) 80.4 % (40.0-77.0); PLATELET COUNT (AUTO) 361 K/uL (130-400); RED BLOOD CELL COUNT(AUTO) 2.62 MIL/uL (4.50-6.20); RED CELL DISTRIBUTION WIDTH 20.8 % (11.0-15.5); WHITE BLOOD COUNT (AUTO) 7.6 K/uL (4.8-10.8)
[2021-06-29 05:34] LABS: % IRON SATURATION 34.2 % (30-44)
[2021-06-29 05:58] LABS: ALBUMIN 2.1 g/dL (3.5-5.0); BILIRUBIN,TOTAL 0.3 mg/dL (0.2-1.0); CREATININE 0.4 mg/dL (0.5-1.5); POTASSIUM 3.3 mmol/L (3.5-5.1); THYROID STIMULATING HORMONE 0.68 uIU/mL (0.36-3.74); TOTAL PROTEIN, SERUM 5.6 g/dL (6.0-8.3)
[2021-06-29] MEDS: SODIUM CHLORIDE 7% INHALATION 4 ML VIAL.NEB IH SCH ×2 (06:00)
[2021-06-29 06:22] LABS: RETICULOCYTE % (AUTO) 6.94 % (0.42-2.23)
[2021-06-29 07:03] LABS: BAND NEUTROPHILS % (MANUAL) 1 % (0-2); LYMPHOCYTES % (MANUAL) 3 % (22-44); MAN.DIFF COMMENT-IMPRESSION MANUAL DIFFERENTIAL; MONOCYTES % (MANUAL) 2 % (2-9); SEGMENTED NEUTROPHILS % 94 % (40-70)
[2021-06-29 07:05] LABS: PLATELET MORPHOLOGY COMMENT ADEQUATE
[2021-06-29] MEDS: ENOXAPARIN SODIUM 100 MG/1 ML SQ SCH ×2 (07:56→20:31)
[2021-06-29] MEDS: POLYETHYLENE GLYCOL 3350 17 GM POWD.PACK PO SCH (07:56)
[2021-06-29] MEDS: DOCUSATE SODIUM 100 MG CAP PO SCH ×2 (07:57→20:33)
[2021-06-29] MEDS: QUETIAPINE FUMARATE 25 MG TAB PO SCH ×2 (07:57→20:29)
[2021-06-29] MEDS: FENOFIBRATE NANOCRYSTALLIZED 145 MG TAB PO SCH (07:57)
[2021-06-29] MEDS: FISH OIL 1000 MG/CAP PEG SCH ×2 (07:57→20:30)
[2021-06-29] MEDS: POTASSIUM CHLORIDE 10% ELIXIR 20 MEQ/15 ML UDCUP PO PRN (07:57)
[2021-06-29] MEDS: SOLU-MEDROL 40MG VIAL IVP SCH ×2 (07:57→20:30)
[2021-06-29] MEDS: METHADONE HCL 10 MG TABLET PO SCH ×2 (07:58→20:29)
[2021-06-29] MEDS: PANTOPRAZOLE 40 MG/VIAL IVP SCH (07:58)
[2021-06-29] MEDS: FENTANYL 2500MCG+NS 250ML 250 ML IV SCH (08:02)
[2021-06-29] MEDS: BALSAM PERU/CASTOR OIL 60 GM TUBE TP SCH ×3 (09:19→20:33)
[2021-06-29] MEDS: ACETAZOLAMIDE SODIUM 500 MG VIAL IV SCH (09:31)
[2021-06-29] MEDS: IRON SUCROSE COMPLEX 100 MG in 0.9%NACL 50ML 50 ML IV SCH (09:31)
[2021-06-29] MEDS ORDERED: MIDODRINE HCL 5 MG TABLET PO PRN (11:00)
[2021-06-29] MEDS: KCL 20 MEQ ERTAB PO SCH (12:55)
[2021-06-29] MEDS: EZETIMIBE 10 MG TAB PEG SCH (20:29)
[2021-06-29] MEDS: ATORVASTATIN 20 MG TABLET PEG SCH (20:29)
[2021-06-29] MEDS: FAMOTIDINE 20MG TAB PO SCH (20:30)
[2021-06-29] MEDS: CEFTRIAXONE 1G VIAL IVP SCH (20:30)
[2021-06-29] MEDS: INSULIN GLARGINE 100 UNITS/ML 10 ML VIAL SQ SCH (20:32)
[2021-06-30] VITALS (37 sets, daily range): BP systolic 98–182; BP diastolic 59–107
[2021-06-30] MEDS: DEXMEDETOMIDINE 400MCG/NS100ML IV SCH ×7 (00:07→16:23)
[2021-06-30] MEDS: CISATRACURIUM BESYLATE 100 MG in 0.9%NACL 100ML 90 ML IV PRN ×4 (00:51→22:59)
[2021-06-30] MEDS: LABETALOL 20MG VIAL IV PRN ×2 (01:00→06:47)
[2021-06-30] MEDS: MIDAZOLAM 100MG-0.9% NS 100ML 100 ML IV SCH ×2 (02:15→14:02)
[2021-06-30] MEDS: DIAZEPAM 5 MG TABLET PEG SCH ×3 (02:16→16:23)
[2021-06-30] MEDS: KETAMINE 50MG/ML SYRINGE 500 MG in 0.9% NACL 500ML IV.SOLN 500 ML IV PRN ×4 (02:16→21:41)
[2021-06-30 03:43] LABS: ABG BASE EXCESS 14.5 mmol/L (-2.0-3.0); ABG OXYGEN SATURATION 90.8 % (95.0-99.0); ABG PCO2 95 mmHg (35-48)
[2021-06-30] MEDS: FUROSEMIDE 40MG VIAL IV SCH ×3 (05:39→21:34)
[2021-06-30] MEDS: INSULIN HUMULIN R 100 UNIT/ML 3ML SQ SCH ×3 (05:40→17:38)
[2021-06-30] MEDS: POLYETHYLENE GLYCOL 3350 17 GM POWD.PACK PO SCH (08:03)
[2021-06-30] MEDS: ACETAZOLAMIDE SODIUM 500 MG VIAL IV SCH (08:03)
[2021-06-30] MEDS: DOCUSATE SODIUM 100 MG CAP PO SCH ×2 (08:04→21:15)
[2021-06-30] MEDS: ENOXAPARIN SODIUM 100 MG/1 ML SQ SCH ×2 (08:04→21:14)
[2021-06-30] MEDS: FENOFIBRATE NANOCRYSTALLIZED 145 MG TAB PO SCH (08:04)
[2021-06-30] MEDS: QUETIAPINE FUMARATE 25 MG TAB PO SCH ×2 (08:04→21:15)
[2021-06-30] MEDS: METHADONE HCL 10 MG TABLET PO SCH (08:05)
[2021-06-30] MEDS: KCL 20 MEQ ERTAB PO SCH (08:05)
[2021-06-30] MEDS: SOLU-MEDROL 40MG VIAL IVP SCH ×2 (08:05→21:14)
[2021-06-30] MEDS: FAMOTIDINE 20MG TAB PO SCH ×2 (08:05→21:15)
[2021-06-30] MEDS: FENTANYL 2500MCG+NS 250ML 250 ML IV SCH (08:06)
[2021-06-30] MEDS: FISH OIL 1000 MG/CAP PEG SCH ×2 (08:07→21:15)
[2021-06-30] MEDS: BALSAM PERU/CASTOR OIL 60 GM TUBE TP SCH ×3 (08:07→22:34)
[2021-06-30] MEDS: IRON SUCROSE COMPLEX 100 MG in 0.9%NACL 50ML 50 ML IV SCH (08:17)
[2021-06-30 10:44] LABS: BASOPHILS % (AUTO) 0.4 % (0.0-5.0); EOSINOPHILS % (AUTO) 0.8 % (0.0-8.0); HEMATOCRIT 27.1 % (42-54); LYMPHOCYTES % (AUTO) 8.1 % (21.0-51.0); MEAN CORPUSCULAR HEMOGLOBIN 30.3 pg (27.0-33.0); MEAN CORPUSCULAR HGB CONC 26.6 g/dL (32.0-36.0); MEAN CORPUSCULAR VOLUME 113.9 fL (79-99); MONOCYTES % (AUTO) 8.1 % (3.0-13.0); NEUTROPHILS % (AUTO) 78.5 % (40.0-77.0); NUCLEATED RED BLOOD CELLS 2.5 % (0.0-0.19); PLATELET COUNT (AUTO) 347 K/uL (130-400); RED BLOOD CELL COUNT(AUTO) 2.38 MIL/uL (4.50-6.20); RED CELL DISTRIBUTION WIDTH 21.6 % (11.0-15.5); WHITE BLOOD COUNT (AUTO) 7.9 K/uL (4.8-10.8)
[2021-06-30 10:58] LABS: POTASSIUM 4.3 mmol/L (3.5-5.1)
[2021-06-30 11:53] LABS: ALBUMIN 2.1 g/dL (3.5-5.0); BILIRUBIN,TOTAL 0.3 mg/dL (0.2-1.0); CREATININE 0.4 mg/dL (0.5-1.5); MAGNESIUM 2.2 mg/dL (1.80-2.40); TOTAL PROTEIN, SERUM 4.7 g/dL (6.0-8.3)
[2021-06-30] MEDS ORDERED: DIAZEPAM 5 MG TABLET PEG PRN (21:00)
[2021-06-30] MEDS ORDERED: METHADONE HCL 5 MG TABLET PEG PRN (21:00)
[2021-06-30] MEDS: CEFTRIAXONE 1G VIAL IVP SCH (21:14)
[2021-06-30] MEDS: EZETIMIBE 10 MG TAB PEG SCH (21:15)
[2021-06-30] MEDS: ATORVASTATIN 20 MG TABLET PEG SCH (21:15)
[2021-06-30] MEDS: INSULIN GLARGINE 100 UNITS/ML 10 ML VIAL SQ SCH (21:37)
[2021-06-30] MEDS ORDERED: DEXMEDETOMIDINE 400MCG/NS100ML IV ONE (22:15)
[2021-07-01] VITALS (56 sets, daily range): BP systolic 86–168; BP diastolic 42–91
[2021-07-01] MEDS: DEXMEDETOMIDINE 400MCG/NS100ML IV SCH ×9 (00:27→20:30)
[2021-07-01] MEDS: CISATRACURIUM BESYLATE 100 MG in 0.9%NACL 100ML 90 ML IV PRN ×5 (01:54→19:03)
[2021-07-01] MEDS: KETAMINE 50MG/ML SYRINGE 500 MG in 0.9% NACL 500ML IV.SOLN 500 ML IV PRN ×4 (03:34→23:35)
[2021-07-01] MEDS: MIDAZOLAM 100MG-0.9% NS 100ML 100 ML IV SCH ×2 (03:35→10:54)
[2021-07-01 04:17] LABS: CRP QUANTITATIVE 61.3 mg/L (0.00-9.0)
[2021-07-01] MEDS: FUROSEMIDE 40MG VIAL IV SCH ×3 (05:40→20:38)
[2021-07-01] MEDS: INSULIN HUMULIN R 100 UNIT/ML 3ML SQ SCH ×4 (05:41→17:41)
[2021-07-01 07:22] LABS: ABG BASE EXCESS 21.4 mmol/L (-2.0-3.0); ABG HCO3 52.7 mmol/L (21.0-28.0); ABG OXYGEN SATURATION 92.6 % (95.0-99.0); ABG PCO2 127 mmHg (35-48)
[2021-07-01 09:14] LABS: BASOPHILS % (AUTO) 0.6 % (0.0-5.0); EOSINOPHILS % (AUTO) 0.3 % (0.0-8.0); HEMATOCRIT 27.9 % (42-54); LYMPHOCYTES % (AUTO) 5.5 % (21.0-51.0); MEAN CORPUSCULAR HEMOGLOBIN 30.5 pg (27.0-33.0); MEAN CORPUSCULAR HGB CONC 27.2 g/dL (32.0-36.0); MONOCYTES % (AUTO) 8.7 % (3.0-13.0); NEUTROPHILS % (AUTO) 80.4 % (40.0-77.0); NUCLEATED RED BLOOD CELLS 2.4 % (0.0-0.19); PLATELET COUNT (AUTO) 363 K/uL (130-400); RED BLOOD CELL COUNT(AUTO) 2.49 MIL/uL (4.50-6.20); RED CELL DISTRIBUTION WIDTH 21.2 % (11.0-15.5)
[2021-07-01 09:21] LABS: ABG BASE EXCESS 21.1 mmol/L (-2.0-3.0); ABG HCO3 52.3 mmol/L (21.0-28.0); ABG PCO2 128 mmHg (35-48)
[2021-07-01 09:41] LABS: ALBUMIN 2.2 g/dL (3.5-5.0); BILIRUBIN,TOTAL 0.3 mg/dL (0.2-1.0); CREATININE 0.5 mg/dL (0.5-1.5); TOTAL PROTEIN, SERUM 5.6 g/dL (6.0-8.3)
[2021-07-01] MEDS: FENOFIBRATE NANOCRYSTALLIZED 145 MG TAB PO SCH (09:52)
[2021-07-01] MEDS: FAMOTIDINE 20MG TAB PO SCH ×2 (09:52→20:27)
[2021-07-01] MEDS: QUETIAPINE FUMARATE 25 MG TAB PO SCH ×2 (09:52→20:27)
[2021-07-01] MEDS: FISH OIL 1000 MG/CAP PEG SCH ×2 (09:52→20:39)
[2021-07-01] MEDS: SOLU-MEDROL 40MG VIAL IVP SCH ×2 (09:52→20:41)
[2021-07-01] MEDS: POLYETHYLENE GLYCOL 3350 17 GM POWD.PACK PO SCH (09:53)
[2021-07-01] MEDS: BALSAM PERU/CASTOR OIL 60 GM TUBE TP SCH ×3 (09:53→21:00)
[2021-07-01] MEDS: ENOXAPARIN SODIUM 100 MG/1 ML SQ SCH ×2 (09:53→20:28)
[2021-07-01] MEDS: ACETAZOLAMIDE SODIUM 500 MG VIAL IV SCH (09:57)
[2021-07-01] MEDS: IRON SUCROSE COMPLEX 100 MG in 0.9%NACL 50ML 50 ML IV SCH (09:58)
[2021-07-01] MEDS: METOCLOPRAMIDE 10 MG TABLET PO SCH ×2 (11:06→17:31)
[2021-07-01] MEDS: FENTANYL 2500MCG+NS 250ML 250 ML IV SCH (13:41)
[2021-07-01 17:15] LABS: ABG BASE EXCESS 26.4 mmol/L (-2.0-3.0); ABG HCO3 59.1 mmol/L (21.0-28.0); ABG OXYGEN SATURATION 94.1 % (95.0-99.0); ABG PCO2 153 mmHg (35-48)
[2021-07-01] MEDS: CEFTRIAXONE 1G VIAL IVP SCH (20:27)
[2021-07-01] MEDS: ATORVASTATIN 20 MG TABLET PEG SCH (20:27)
[2021-07-01] MEDS: EZETIMIBE 10 MG TAB PEG SCH (20:27)
[2021-07-01] MEDS: INSULIN GLARGINE 100 UNITS/ML 10 ML VIAL SQ SCH (20:29)
[2021-07-01] MEDS: METHADONE HCL 5 MG TABLET PEG SCH (20:38)
[2021-07-01] MEDS: DOCUSATE NA 100MG/10ML UDCUP PO SCH (20:39)
[2021-07-01] MEDS: DIAZEPAM 5 MG TABLET PEG SCH (20:39)
[2021-07-01] MEDS: FENTANYL 75 MCG/HR PATCH TD SCH (20:50)
[2021-07-01] MEDS: MIDAZOLAM 100MG-0.9% NS 100ML 100ML BAG IV SCH (21:53)
[2021-07-02] VITALS (32 sets, daily range): BP systolic 93–157; BP diastolic 53–93
[2021-07-02] MEDS: DEXMEDETOMIDINE 400MCG/NS100ML IV SCH ×7 (00:35→20:34)
[2021-07-02] MEDS: INSULIN HUMULIN R 100 UNIT/ML 3ML SQ SCH ×5 (00:43→23:48)
[2021-07-02] MEDS ORDERED: ALBUMIN (HUMAN) 25% 50 ML IV SCH (01:30)
[2021-07-02] MEDS: CISATRACURIUM BESYLATE 100 MG in 0.9%NACL 100ML 90 ML IV PRN ×3 (04:17→14:07)
[2021-07-02] MEDS: DIAZEPAM 5 MG TABLET PEG SCH ×3 (04:25→20:39)
[2021-07-02] MEDS: FUROSEMIDE 40MG VIAL IV SCH ×3 (04:25→21:14)
[2021-07-02] MEDS ORDERED: FENTANYL 2500MCG+NS 250ML 250 ML IV ONE (05:37)
[2021-07-02] MEDS: KETAMINE 50MG/ML SYRINGE 500 MG in 0.9% NACL 500ML IV.SOLN 500 ML IV PRN ×2 (05:44→20:10)
[2021-07-02 05:46] LABS: BASOPHILS % (AUTO) 0.4 % (0.0-5.0); EOSINOPHILS % (AUTO) 0.4 % (0.0-8.0); HEMATOCRIT 26.8 % (42-54); LYMPHOCYTES % (AUTO) 5.2 % (21.0-51.0); MEAN CORPUSCULAR HEMOGLOBIN 30.6 pg (27.0-33.0); MEAN CORPUSCULAR HGB CONC 26.9 g/dL (32.0-36.0); MONOCYTES % (AUTO) 8.8 % (3.0-13.0); NEUTROPHILS % (AUTO) 81.5 % (40.0-77.0); NUCLEATED RED BLOOD CELLS 2.8 % (0.0-0.19); PLATELET COUNT (AUTO) 302 K/uL (130-400); RED BLOOD CELL COUNT(AUTO) 2.35 MIL/uL (4.50-6.20); RED CELL DISTRIBUTION WIDTH 20.9 % (11.0-15.5); WHITE BLOOD COUNT (AUTO) 8.5 K/uL (4.8-10.8)
[2021-07-02 06:05] LABS: ALANINE AMINOTRANSFERASE 32 U/L (12-78); ALBUMIN 2.1 g/dL (3.5-5.0); BILIRUBIN,TOTAL 0.3 mg/dL (0.2-1.0); POTASSIUM 3.6 mmol/L (3.5-5.1); SODIUM SERUM 154 mmol/L (136-145); UREA NITROGEN, BLOOD 20 mg/dL (7-18)
[2021-07-02 06:09] LABS: AMYLASE 28 U/L (25-115); ASPARTATE AMINOTRANSFERASE 16 U/L (10-37); CHLORIDE 104 mmol/L (101-111); CREATININE 0.5 mg/dL (0.5-1.5); GLOMERULAR FILTR. RATE CALC 186 mL/min (>60); GLUCOSE,RANDOM 241 mg/dL (70-105); TOTAL PROTEIN, SERUM 5.3 g/dL (6.0-8.3); TRIGLYCERIDES 378 mg/dL (30-200)
[2021-07-02 06:21] LABS: AMMONIA 88 umol/L (11-32); CARBON DIOXIDE 48 mmol/L (21-32); LIPASE < 50 U/L (114-286)
[2021-07-02 06:39] LABS: % IRON SATURATION 29.4 % (30-44)
[2021-07-02 08:01] LABS: ABG BASE EXCESS 24.5 mmol/L (-2.0-3.0); ABG HCO3 55.1 mmol/L (21.0-28.0); ABG OXYGEN SATURATION 91.8 % (95.0-99.0); ABG PCO2 131 mmHg (35-48)
[2021-07-02] MEDS: METHADONE HCL 5 MG TABLET PEG SCH ×2 (08:20→20:38)
[2021-07-02] MEDS: ENOXAPARIN SODIUM 100 MG/1 ML SQ SCH ×2 (08:20→20:45)
[2021-07-02] MEDS: FISH OIL 1000 MG/CAP PEG SCH ×2 (08:21→20:38)
[2021-07-02] MEDS: DOCUSATE NA 100MG/10ML UDCUP PO SCH ×2 (08:21→20:38)
[2021-07-02] MEDS: IRON SUCROSE COMPLEX 100 MG in 0.9%NACL 50ML 50 ML IV SCH (08:21)
[2021-07-02] MEDS: METOCLOPRAMIDE 10 MG TABLET PO SCH ×3 (08:21→16:28)
[2021-07-02] MEDS: POTASSIUM CHLORIDE 10% ELIXIR 20 MEQ/15 ML UDCUP NG SCH (08:21)
[2021-07-02] MEDS: FENOFIBRATE NANOCRYSTALLIZED 145 MG TAB PO SCH (08:21)
[2021-07-02] MEDS: SOLU-MEDROL 40MG VIAL IVP SCH ×2 (08:21→20:36)
[2021-07-02] MEDS: POLYETHYLENE GLYCOL 3350 17 GM POWD.PACK PO SCH (08:21)
[2021-07-02] MEDS: FAMOTIDINE 20MG TAB PO SCH ×2 (08:21→20:40)
[2021-07-02] MEDS: BALSAM PERU/CASTOR OIL 60 GM TUBE TP SCH ×3 (08:22→20:45)
[2021-07-02] MEDS: ACETAZOLAMIDE SODIUM 500 MG VIAL IV SCH (08:22)
[2021-07-02] MEDS: LACTULOSE 20 GM/30 ML UDCUP PO SCH ×3 (11:00→21:14)
[2021-07-02 11:19] LABS: INR 1.09 (0.85-1.15); PROTHROMBIN TIME 11.8 SEC (9.6-11.6)
[2021-07-02 11:20] LABS: PARTIAL THROMBOPLASTIN TIME 35.9 SEC (26.3-35.5)
[2021-07-02] MEDS: MIDAZOLAM 100MG-0.9% NS 100ML 100ML BAG IV SCH (12:40)
[2021-07-02] MEDS: EPOETIN ALFA-EPBX (NON-ESRD) 10,000 UNIT/ML VIAL SQ SCH (12:51)
[2021-07-02] MEDS ORDERED: FENTANYL CITRATE PF 0.05 MG/ML 1,000 MCG in 0.9%NACL 100ML 100 ML IVPB SCH (14:00)
[2021-07-02] MEDS ORDERED: MIDAZOLAM HCL 50 MG in 0.9%NACL 50ML 50 ML IV SCH (14:00)
[2021-07-02] MEDS: FENTANYL 2500MCG+NS 250ML 250 ML IV SCH ×2 (14:08→20:35)
[2021-07-02] MEDS: CEFTRIAXONE 1G VIAL IVP SCH (20:36)
[2021-07-02] MEDS: EZETIMIBE 10 MG TAB PEG SCH (20:38)
[2021-07-02] MEDS: ATORVASTATIN 20 MG TABLET PEG SCH (20:38)
[2021-07-02] MEDS: INSULIN GLARGINE 100 UNITS/ML 10 ML VIAL SQ SCH (21:15)
[2021-07-03] VITALS (29 sets, daily range): BP systolic 104–168; BP diastolic 57–86
[2021-07-03] MEDS: MIDAZOLAM 100MG-0.9% NS 100ML 100ML BAG IV SCH ×2 (00:39→13:09)
[2021-07-03] MEDS: DEXMEDETOMIDINE 400MCG/NS100ML IV SCH ×8 (01:26→21:09)
[2021-07-03] MEDS: KETAMINE 50MG/ML SYRINGE 500 MG in 0.9% NACL 500ML IV.SOLN 500 ML IV PRN ×4 (02:02→23:01)
[2021-07-03] MEDS: DIAZEPAM 5 MG TABLET PEG SCH ×3 (04:15→21:34)
[2021-07-03] MEDS: FUROSEMIDE 40MG VIAL IV SCH ×3 (04:15→21:38)
[2021-07-03] MEDS: CISATRACURIUM BESYLATE 100 MG in 0.9%NACL 100ML 90 ML IV PRN ×5 (04:17→21:16)
[2021-07-03 04:42] LABS: BASOPHILS % (AUTO) 0.5 % (0.0-5.0); EOSINOPHILS % (AUTO) 1.3 % (0.0-8.0); HEMATOCRIT 26.2 % (42-54); LYMPHOCYTES % (AUTO) 6.6 % (21.0-51.0); MEAN CORPUSCULAR HEMOGLOBIN 31.4 pg (27.0-33.0); MEAN CORPUSCULAR HGB CONC 27.5 g/dL (32.0-36.0); MEAN CORPUSCULAR VOLUME 114.4 fL (79-99); NEUTROPHILS % (AUTO) 78.8 % (40.0-77.0); NUCLEATED RED BLOOD CELLS 3.5 % (0.0-0.19); PLATELET COUNT (AUTO) 192 K/uL (130-400); RED BLOOD CELL COUNT(AUTO) 2.29 MIL/uL (4.50-6.20); RED CELL DISTRIBUTION WIDTH 21.3 % (11.0-15.5); WHITE BLOOD COUNT (AUTO) 9.6 K/uL (4.8-10.8)
[2021-07-03 04:56] LABS: ALBUMIN 2.2 g/dL (3.5-5.0); BILIRUBIN,TOTAL 0.3 mg/dL (0.2-1.0); CREATININE 0.4 mg/dL (0.5-1.5); POTASSIUM 3.7 mmol/L (3.5-5.1); TOTAL PROTEIN, SERUM 4.9 g/dL (6.0-8.3)
[2021-07-03] MEDS: INSULIN HUMULIN R 100 UNIT/ML 3ML SQ SCH ×3 (06:04→18:37)
[2021-07-03] MEDS: POLYETHYLENE GLYCOL 3350 17 GM POWD.PACK PO SCH (08:50)
[2021-07-03] MEDS: FISH OIL 1000 MG/CAP PEG SCH ×2 (08:50→21:35)
[2021-07-03] MEDS: LACTULOSE 20 GM/30 ML UDCUP PO SCH ×3 (08:50→21:35)
[2021-07-03] MEDS: DOCUSATE NA 100MG/10ML UDCUP PO SCH ×2 (08:50→21:35)
[2021-07-03] MEDS: FENOFIBRATE NANOCRYSTALLIZED 145 MG TAB PO SCH (08:50)
[2021-07-03] MEDS: FAMOTIDINE 20MG TAB PO SCH ×2 (08:51→21:37)
[2021-07-03] MEDS: SOLU-MEDROL 40MG VIAL IVP SCH ×2 (08:51→21:38)
[2021-07-03] MEDS: METHADONE HCL 5 MG TABLET PEG SCH ×2 (08:51→21:36)
[2021-07-03] MEDS: METOCLOPRAMIDE 10 MG TABLET PO SCH ×3 (08:51→16:03)
[2021-07-03] MEDS: ENOXAPARIN SODIUM 100 MG/1 ML SQ SCH ×2 (08:52→21:37)
[2021-07-03] MEDS: POTASSIUM CHLORIDE 10% ELIXIR 20 MEQ/15 ML UDCUP NG SCH (08:52)
[2021-07-03] MEDS: BALSAM PERU/CASTOR OIL 60 GM TUBE TP SCH ×3 (08:53→23:09)
[2021-07-03] MEDS: ACETAZOLAMIDE SODIUM 500 MG VIAL IV SCH (08:54)
[2021-07-03] MEDS: IRON SUCROSE COMPLEX 100 MG in 0.9%NACL 50ML 50 ML IV SCH (08:54)
[2021-07-03 10:18] LABS: ABG BASE EXCESS 30.4 mmol/L (-2.0-3.0); ABG HCO3 62.6 mmol/L (21.0-28.0); ABG OXYGEN SATURATION 90.9 % (95.0-99.0); ABG PCO2 > 155 mmHg (35-48)
[2021-07-03 10:20] LABS: ABG BASE EXCESS 27.1 mmol/L (-2.0-3.0); ABG HCO3 58.5 mmol/L (21.0-28.0); ABG OXYGEN SATURATION 91.1 % (95.0-99.0); ABG PCO2 143 mmHg (35-48)
[2021-07-03] MEDS: METOLAZONE 2.5 MG TABLET PO SCH (16:04)
[2021-07-03] MEDS: INSULIN GLARGINE 100 UNITS/ML 10 ML VIAL SQ SCH (21:34)
[2021-07-03] MEDS: ATORVASTATIN 20 MG TABLET PEG SCH (21:35)
[2021-07-03] MEDS: CEFTRIAXONE 1G VIAL IVP SCH (21:37)
[2021-07-03] MEDS: EZETIMIBE 10 MG TAB PEG SCH (21:39)
[2021-07-03] MEDS: FENTANYL 2500MCG+NS 250ML 250 ML IV SCH (23:08)
[2021-07-04] VITALS (42 sets, daily range): BP systolic 91–158; BP diastolic 46–90
[2021-07-04] MEDS: MIDAZOLAM 100MG-0.9% NS 100ML 100ML BAG IV SCH ×2 (00:15→12:32)
[2021-07-04] MEDS: CISATRACURIUM BESYLATE 100 MG in 0.9%NACL 100ML 90 ML IV PRN ×7 (00:23→21:21)
[2021-07-04] MEDS: DEXMEDETOMIDINE 400MCG/NS100ML IV SCH ×8 (04:31→23:54)
[2021-07-04] MEDS: FUROSEMIDE 40MG VIAL IV SCH ×3 (04:33→20:57)
[2021-07-04] MEDS: DIAZEPAM 5 MG TABLET PEG SCH ×3 (04:34→21:01)
[2021-07-04] MEDS: KETAMINE 50MG/ML SYRINGE 500 MG in 0.9% NACL 500ML IV.SOLN 500 ML IV PRN ×3 (05:06→21:23)
[2021-07-04 05:24] LABS: BASOPHILS % (AUTO) 0.5 % (0.0-5.0); EOSINOPHILS % (AUTO) 0.7 % (0.0-8.0); LYMPHOCYTES % (AUTO) 8.1 % (21.0-51.0); MEAN CORPUSCULAR HEMOGLOBIN 30.7 pg (27.0-33.0); MEAN CORPUSCULAR HGB CONC 26.4 g/dL (32.0-36.0); MEAN CORPUSCULAR VOLUME 116.2 fL (79-99); MONOCYTES % (AUTO) 7.4 % (3.0-13.0); NEUTROPHILS % (AUTO) 80.5 % (40.0-77.0); NUCLEATED RED BLOOD CELLS 3.8 % (0.0-0.19); PLATELET COUNT (AUTO) 288 K/uL (130-400); RED BLOOD CELL COUNT(AUTO) 2.41 MIL/uL (4.50-6.20); RED CELL DISTRIBUTION WIDTH 20.7 % (11.0-15.5); WHITE BLOOD COUNT (AUTO) 10.7 K/uL (4.8-10.8)
[2021-07-04 05:39] LABS: ALBUMIN 2.2 g/dL (3.5-5.0); BILIRUBIN,TOTAL 0.3 mg/dL (0.2-1.0); CREATININE 0.5 mg/dL (0.5-1.5); MAGNESIUM 2.1 mg/dL (1.80-2.40); TOTAL PROTEIN, SERUM 5.6 g/dL (6.0-8.3)
[2021-07-04 05:41] LABS: POTASSIUM 2.9 mmol/L (3.5-5.1)
[2021-07-04] MEDS: POTASSIUM CHLORIDE 10% ELIXIR 20 MEQ/15 ML UDCUP NG SCH ×2 (05:54→08:30)
[2021-07-04] MEDS: INSULIN HUMULIN R 100 UNIT/ML 3ML SQ SCH ×4 (06:00→18:00)
[2021-07-04] MEDS: IRON SUCROSE COMPLEX 100 MG in 0.9%NACL 50ML 50 ML IV SCH (08:29)
[2021-07-04] MEDS: METHADONE HCL 5 MG TABLET PEG SCH ×2 (08:29→20:57)
[2021-07-04] MEDS: ENOXAPARIN SODIUM 100 MG/1 ML SQ SCH ×2 (08:29→20:56)
[2021-07-04] MEDS: METOLAZONE 2.5 MG TABLET PO SCH (08:30)
[2021-07-04] MEDS: DOCUSATE NA 100MG/10ML UDCUP PO SCH ×2 (08:30→20:58)
[2021-07-04] MEDS: POLYETHYLENE GLYCOL 3350 17 GM POWD.PACK PO SCH (08:30)
[2021-07-04] MEDS: METOCLOPRAMIDE 10 MG TABLET PO SCH ×3 (08:30→16:58)
[2021-07-04] MEDS: FISH OIL 1000 MG/CAP PEG SCH ×2 (08:30→20:59)
[2021-07-04] MEDS: FAMOTIDINE 20MG TAB PO SCH ×2 (08:30→20:59)
[2021-07-04] MEDS: FENOFIBRATE NANOCRYSTALLIZED 145 MG TAB PO SCH (08:30)
[2021-07-04] MEDS: LACTULOSE 20 GM/30 ML UDCUP PO SCH ×3 (08:30→20:58)
[2021-07-04] MEDS: SOLU-MEDROL 40MG VIAL IVP SCH ×2 (08:30→20:58)
[2021-07-04] MEDS: EPOETIN ALFA-EPBX (NON-ESRD) 10,000 UNIT/ML VIAL SQ SCH (08:31)
[2021-07-04] MEDS: ACETAZOLAMIDE SODIUM 500 MG VIAL IV SCH (08:31)
[2021-07-04] MEDS: BALSAM PERU/CASTOR OIL 60 GM TUBE TP SCH ×3 (08:32→21:02)
[2021-07-04 09:29] LABS: ABG BASE EXCESS 28.7 mmol/L (-2.0-3.0); ABG HCO3 59.3 mmol/L (21.0-28.0); ABG OXYGEN SATURATION 92.6 % (95.0-99.0); ABG PCO2 129 mmHg (35-48)
[2021-07-04] MEDS: FENTANYL 2500MCG+NS 250ML 250 ML IV SCH (15:16)
[2021-07-04] MEDS: FENTANYL 75 MCG/HR PATCH TD SCH ×2 (20:56→21:22)
[2021-07-04] MEDS: EZETIMIBE 10 MG TAB PEG SCH (20:58)
[2021-07-04] MEDS: CEFTRIAXONE 1G VIAL IVP SCH (20:58)
[2021-07-04] MEDS: ATORVASTATIN 20 MG TABLET PEG SCH (20:59)
[2021-07-04] MEDS: INSULIN GLARGINE 100 UNITS/ML 10 ML VIAL SQ SCH (21:01)
[2021-07-05] VITALS (44 sets, daily range): BP systolic 90–166; BP diastolic 42–88
[2021-07-05] MEDS: MIDAZOLAM 100MG-0.9% NS 100ML 100ML BAG IV SCH ×2 (00:01→18:06)
[2021-07-05] MEDS: CISATRACURIUM BESYLATE 100 MG in 0.9%NACL 100ML 90 ML IV PRN ×3 (01:09→18:00)
[2021-07-05] MEDS: DEXMEDETOMIDINE 400MCG/NS100ML IV SCH ×5 (04:23→21:38)
[2021-07-05] MEDS: DIAZEPAM 5 MG TABLET PEG SCH ×3 (04:24→21:32)
[2021-07-05] MEDS: FUROSEMIDE 40MG VIAL IV SCH ×3 (04:25→21:35)
[2021-07-05 06:00] LABS: BASOPHILS % (AUTO) 0.4 % (0.0-5.0); EOSINOPHILS % (AUTO) 2.5 % (0.0-8.0); HEMATOCRIT 25.6 % (42-54); LYMPHOCYTES % (AUTO) 8.5 % (21.0-51.0); MEAN CORPUSCULAR HEMOGLOBIN 31.2 pg (27.0-33.0); MEAN CORPUSCULAR HGB CONC 26.6 g/dL (32.0-36.0); MEAN CORPUSCULAR VOLUME 117.4 fL (79-99); MONOCYTES % (AUTO) 9.1 % (3.0-13.0); NEUTROPHILS % (AUTO) 77.1 % (40.0-77.0); NUCLEATED RED BLOOD CELLS 3.8 % (0.0-0.19); PLATELET COUNT (AUTO) 259 K/uL (130-400); RED BLOOD CELL COUNT(AUTO) 2.18 MIL/uL (4.50-6.20); RED CELL DISTRIBUTION WIDTH 21.4 % (11.0-15.5); WHITE BLOOD COUNT (AUTO) 9.3 K/uL (4.8-10.8)
[2021-07-05] MEDS: INSULIN HUMULIN R 100 UNIT/ML 3ML SQ SCH ×4 (06:00→17:56)
[2021-07-05 06:12] LABS: ALBUMIN 2.1 g/dL (3.5-5.0); BILIRUBIN,TOTAL 0.2 mg/dL (0.2-1.0); CREATININE 0.5 mg/dL (0.5-1.5); CRP QUANTITATIVE 91.1 mg/L (0.00-9.0); POTASSIUM 3.2 mmol/L (3.5-5.1); TOTAL PROTEIN, SERUM 5.3 g/dL (6.0-8.3)
[2021-07-05 07:06] LABS: ABG BASE EXCESS 38.5 mmol/L (-2.0-3.0); ABG HCO3 70.7 mmol/L (21.0-28.0); ABG PCO2 151 mmHg (35-48)
[2021-07-05] MEDS: KETAMINE 50MG/ML SYRINGE 500 MG in 0.9% NACL 500ML IV.SOLN 500 ML IV PRN (08:34)
[2021-07-05] MEDS: IRON SUCROSE COMPLEX 100 MG in 0.9%NACL 50ML 50 ML IV SCH (09:08)
[2021-07-05] MEDS: ACETAZOLAMIDE SODIUM 500 MG VIAL IV SCH (09:08)
[2021-07-05] MEDS: FENOFIBRATE NANOCRYSTALLIZED 145 MG TAB PO SCH (09:09)
[2021-07-05] MEDS: ENOXAPARIN SODIUM 100 MG/1 ML SQ SCH ×2 (09:09→21:31)
[2021-07-05] MEDS: METHADONE HCL 5 MG TABLET PEG SCH ×2 (09:10→21:34)
[2021-07-05] MEDS: FISH OIL 1000 MG/CAP PEG SCH ×2 (09:11→21:34)
[2021-07-05] MEDS: SOLU-MEDROL 40MG VIAL IVP SCH ×2 (09:11→21:34)
[2021-07-05] MEDS: METOLAZONE 2.5 MG TABLET PO SCH (09:11)
[2021-07-05] MEDS: FAMOTIDINE 20MG TAB PO SCH ×2 (09:11→21:35)
[2021-07-05] MEDS: METOCLOPRAMIDE 10 MG TABLET PO SCH ×3 (09:11→16:39)
[2021-07-05] MEDS: DOCUSATE NA 100MG/10ML UDCUP PO SCH ×2 (09:11→21:33)
[2021-07-05] MEDS: POTASSIUM CHLORIDE 10% ELIXIR 20 MEQ/15 ML UDCUP NG SCH (09:11)
[2021-07-05] MEDS: LACTULOSE 20 GM/30 ML UDCUP PO SCH ×3 (09:12→21:32)
[2021-07-05] MEDS: POLYETHYLENE GLYCOL 3350 17 GM POWD.PACK PO SCH (09:12)
[2021-07-05] MEDS: BALSAM PERU/CASTOR OIL 60 GM TUBE TP SCH ×3 (09:12→22:23)
[2021-07-05] MEDS: FENTANYL 2500MCG+NS 250ML 250 ML IV SCH (09:14)
[2021-07-05] MEDS: ACETAMINOPHEN 325 MG TAB PO PRN (16:56)
[2021-07-05 19:31] LABS: ABG HCO3 71.8 mmol/L (21.0-28.0); ABG PCO2 134 mmHg (35-48)
[2021-07-05] MEDS: CEFTRIAXONE 1G VIAL IVP SCH (21:33)
[2021-07-05] MEDS: EZETIMIBE 10 MG TAB PEG SCH (21:33)
[2021-07-05] MEDS: ATORVASTATIN 20 MG TABLET PEG SCH (21:34)
[2021-07-05] MEDS: INSULIN GLARGINE 100 UNITS/ML 10 ML VIAL SQ SCH (21:37)
[2021-07-06] VITALS (47 sets, daily range): BP systolic 97–170; BP diastolic 52–98
[2021-07-06] MEDS: INSULIN HUMULIN R 100 UNIT/ML 3ML SQ SCH ×4 (00:05→18:14)
[2021-07-06] MEDS: DEXMEDETOMIDINE 400MCG/NS100ML IV SCH ×8 (01:56→22:41)
[2021-07-06] MEDS: CISATRACURIUM BESYLATE 100 MG in 0.9%NACL 100ML 90 ML IV PRN ×4 (01:56→12:50)
[2021-07-06 04:19] LABS: ABG BASE EXCESS 35.3 mmol/L (-2.0-3.0); ABG HCO3 63.2 mmol/L (21.0-28.0); ABG OXYGEN SATURATION 92.9 % (95.0-99.0); ABG PCO2 106 mmHg (35-48)
[2021-07-06 04:30] LABS: BASOPHILS % (AUTO) 0.4 % (0.0-5.0); EOSINOPHILS % (AUTO) 0.6 % (0.0-8.0); HEMATOCRIT 27.2 % (42-54); LYMPHOCYTES % (AUTO) 6.5 % (21.0-51.0); MEAN CORPUSCULAR HEMOGLOBIN 30.2 pg (27.0-33.0); MEAN CORPUSCULAR HGB CONC 26.8 g/dL (32.0-36.0); MEAN CORPUSCULAR VOLUME 112.4 fL (79-99); NEUTROPHILS % (AUTO) 82.1 % (40.0-77.0); NUCLEATED RED BLOOD CELLS 4.5 % (0.0-0.19); PLATELET COUNT (AUTO) 256 K/uL (130-400); RED BLOOD CELL COUNT(AUTO) 2.42 MIL/uL (4.50-6.20); RED CELL DISTRIBUTION WIDTH 24.6 % (11.0-15.5); WHITE BLOOD COUNT (AUTO) 9.1 K/uL (4.8-10.8)
[2021-07-06 05:10] LABS: BILIRUBIN,TOTAL 0.3 mg/dL (0.2-1.0); CREATININE 0.6 mg/dL (0.5-1.5); CRP QUANTITATIVE 93.2 mg/L (0.00-9.0); POTASSIUM 3.1 mmol/L (3.5-5.1)
[2021-07-06] MEDS: MIDAZOLAM 100MG-0.9% NS 100ML 100ML BAG IV SCH ×2 (05:41→19:47)
[2021-07-06] MEDS: DIAZEPAM 5 MG TABLET PEG SCH ×3 (05:42→22:00)
[2021-07-06] MEDS: FUROSEMIDE 40MG VIAL IV SCH ×3 (05:43→22:02)
[2021-07-06] MEDS: ENOXAPARIN SODIUM 100 MG/1 ML SQ SCH ×2 (09:15→22:01)
[2021-07-06] MEDS: POLYETHYLENE GLYCOL 3350 17 GM POWD.PACK PO SCH (09:15)
[2021-07-06] MEDS: ACETAZOLAMIDE SODIUM 500 MG VIAL IV SCH (09:15)
[2021-07-06] MEDS: SOLU-MEDROL 40MG VIAL IVP SCH ×2 (09:16→22:02)
[2021-07-06] MEDS: DOCUSATE NA 100MG/10ML UDCUP PO SCH ×2 (09:16→21:00)
[2021-07-06] MEDS: FISH OIL 1000 MG/CAP PEG SCH ×2 (09:16→22:00)
[2021-07-06] MEDS: POTASSIUM CHLORIDE 10% ELIXIR 20 MEQ/15 ML UDCUP NG SCH (09:16)
[2021-07-06] MEDS: FENOFIBRATE NANOCRYSTALLIZED 145 MG TAB PO SCH (09:16)
[2021-07-06] MEDS: LACTULOSE 20 GM/30 ML UDCUP PO SCH ×3 (09:16→22:00)
[2021-07-06] MEDS: METOLAZONE 2.5 MG TABLET PO SCH (09:17)
[2021-07-06] MEDS: METHADONE HCL 5 MG TABLET PEG SCH ×2 (09:17→21:30)
[2021-07-06] MEDS: FAMOTIDINE 20MG TAB PO SCH ×2 (09:17→22:00)
[2021-07-06] MEDS: METOCLOPRAMIDE 10 MG TABLET PO SCH ×3 (09:17→18:12)
[2021-07-06] MEDS: IRON SUCROSE COMPLEX 100 MG in 0.9%NACL 50ML 50 ML IV SCH (09:21)
[2021-07-06] MEDS: BALSAM PERU/CASTOR OIL 60 GM TUBE TP SCH ×3 (09:23→22:04)
[2021-07-06] MEDS: FENTANYL 2500MCG+NS 250ML 250 ML IV SCH (10:56)
[2021-07-06] MEDS ORDERED: ZOSYN 3.375GM+NS 50ML 3.38 GM in 0.9%NACL 50ML 50 ML IV SCH (12:30)
[2021-07-06] MEDS: ZOSYN 3.375GM+NS 50ML 50 ML IV SCH ×2 (12:49→22:02)
[2021-07-06] MEDS: KETAMINE 50MG/ML SYRINGE 500 MG in 0.9% NACL 500ML IV.SOLN 500 ML IV PRN (12:50)
[2021-07-06] MEDS: ATORVASTATIN 20 MG TABLET PEG SCH (22:00)
[2021-07-06] MEDS: EZETIMIBE 10 MG TAB PEG SCH (22:00)
[2021-07-06] MEDS: CEFTRIAXONE 1G VIAL IVP SCH (22:02)
[2021-07-06] MEDS: INSULIN GLARGINE 100 UNITS/ML 10 ML VIAL SQ SCH (22:03)
[2021-07-07] VITALS (45 sets, daily range): BP systolic 73–172; BP diastolic 35–103
[2021-07-07] MEDS: KETAMINE 50MG/ML SYRINGE 500 MG in 0.9% NACL 500ML IV.SOLN 500 ML IV PRN ×4 (00:51→21:26)
[2021-07-07] MEDS: DEXMEDETOMIDINE 400MCG/NS100ML IV SCH ×7 (03:56→22:28)
[2021-07-07] MEDS: MIDAZOLAM 100MG-0.9% NS 100ML 100ML BAG IV SCH (03:57)
[2021-07-07] MEDS: FENTANYL 2500MCG+NS 250ML 250 ML IV SCH ×3 (03:59→19:12)
[2021-07-07 04:06] LABS: BASOPHILS % (AUTO) 0.4 % (0.0-5.0); EOSINOPHILS % (AUTO) 1.3 % (0.0-8.0); HEMATOCRIT 29.3 % (42-54); LYMPHOCYTES % (AUTO) 5.5 % (21.0-51.0); MEAN CORPUSCULAR HEMOGLOBIN 30.2 pg (27.0-33.0); MEAN CORPUSCULAR HGB CONC 27.6 g/dL (32.0-36.0); MEAN CORPUSCULAR VOLUME 109.3 fL (79-99); MONOCYTES % (AUTO) 6.2 % (3.0-13.0); NUCLEATED RED BLOOD CELLS 3.7 % (0.0-0.19); PLATELET COUNT (AUTO) 282 K/uL (130-400); RED BLOOD CELL COUNT(AUTO) 2.68 MIL/uL (4.50-6.20); RED CELL DISTRIBUTION WIDTH 23.2 % (11.0-15.5); WHITE BLOOD COUNT (AUTO) 10.1 K/uL (4.8-10.8)
[2021-07-07 04:28] LABS: ALBUMIN 2.2 g/dL (3.5-5.0); BILIRUBIN,TOTAL 0.4 mg/dL (0.2-1.0); CREATININE 0.6 mg/dL (0.5-1.5); CRP QUANTITATIVE 82.7 mg/L (0.00-9.0); POTASSIUM 3.2 mmol/L (3.5-5.1); TOTAL PROTEIN, SERUM 5.7 g/dL (6.0-8.3)
[2021-07-07] MEDS: FUROSEMIDE 40MG VIAL IV SCH ×3 (05:20→21:10)
[2021-07-07] MEDS: POTASSIUM CHLORIDE 10% ELIXIR 20 MEQ/15 ML UDCUP PO PRN ×2 (05:20→08:12)
[2021-07-07] MEDS: DIAZEPAM 5 MG TABLET PEG SCH ×2 (05:21→13:52)
[2021-07-07] MEDS: ZOSYN 3.375GM+NS 50ML 50 ML IV SCH ×3 (05:21→21:09)
[2021-07-07] MEDS: INSULIN HUMULIN R 100 UNIT/ML 3ML SQ SCH ×4 (06:00→19:14)
[2021-07-07] MEDS: DOCUSATE NA 100MG/10ML UDCUP PO SCH ×2 (09:00→21:00)
[2021-07-07] MEDS: POLYETHYLENE GLYCOL 3350 17 GM POWD.PACK PO SCH (09:00)
[2021-07-07] MEDS: LACTULOSE 20 GM/30 ML UDCUP PO SCH ×3 (09:00→21:10)
[2021-07-07] MEDS: FAMOTIDINE 20MG TAB PO SCH ×2 (09:52→21:12)
[2021-07-07] MEDS: FISH OIL 1000 MG/CAP PEG SCH ×2 (09:52→21:11)
[2021-07-07] MEDS: METOLAZONE 2.5 MG TABLET PO SCH (09:53)
[2021-07-07] MEDS: SOLU-MEDROL 40MG VIAL IVP SCH ×2 (09:53→21:09)
[2021-07-07] MEDS: POTASSIUM CHLORIDE 10% ELIXIR 20 MEQ/15 ML UDCUP NG SCH ×2 (09:53→14:00)
[2021-07-07] MEDS: FENOFIBRATE NANOCRYSTALLIZED 145 MG TAB PO SCH (09:53)
[2021-07-07] MEDS: METHADONE HCL 5 MG TABLET PEG SCH ×2 (09:54→21:11)
[2021-07-07] MEDS: ACETAZOLAMIDE SODIUM 500 MG VIAL IV SCH (09:54)
[2021-07-07] MEDS: METOCLOPRAMIDE 10 MG TABLET PO SCH ×3 (09:54→16:19)
[2021-07-07] MEDS: ENOXAPARIN SODIUM 100 MG/1 ML SQ SCH ×2 (09:55→21:10)
[2021-07-07] MEDS: BALSAM PERU/CASTOR OIL 60 GM TUBE TP SCH ×3 (09:55→21:17)
[2021-07-07] MEDS: IRON SUCROSE COMPLEX 100 MG in 0.9%NACL 50ML 50 ML IV SCH (09:56)
[2021-07-07] MEDS: PHENYLEPHRINE HCL 100 MG in 0.9% NACL 250ML 250 ML IV SCH (10:18)
[2021-07-07 10:38] LABS: ABG BASE EXCESS 29.5 mmol/L (-2.0-3.0); ABG HCO3 58.3 mmol/L (21.0-28.0); ABG OXYGEN SATURATION 92.8 % (95.0-99.0); ABG PCO2 96 mmHg (35-48)
[2021-07-07] MEDS: POTASSIUM CHLORIDE 20MEQ/100ML 100 ML IV PRN ×2 (14:00→17:10)
[2021-07-07] MEDS ORDERED: PHARMACY COMMUNICATION MISC SCH (15:00)
[2021-07-07] MEDS: MIDAZOLAM 100MG-0.9% NS 100ML 100 ML IV SCH (16:19)
[2021-07-07] MEDS: EZETIMIBE 10 MG TAB PEG SCH (21:12)
[2021-07-07] MEDS: ATORVASTATIN 20 MG TABLET PEG SCH (21:12)
[2021-07-07] MEDS: INSULIN GLARGINE 100 UNITS/ML 10 ML VIAL SQ SCH (21:17)
[2021-07-07] MEDS: FENTANYL 75 MCG/HR PATCH TD SCH (21:17)
[2021-07-07] MEDS ORDERED: IPRATROPIUM/ALBUTEROL SULFATE 3 ML SOLUTION IH ONE (23:00)
[2021-07-08] VITALS (41 sets, daily range): BP systolic 68–139; BP diastolic 36–72
[2021-07-08 00:20] LABS: ABG BASE EXCESS 26.2 mmol/L (-2.0-3.0); ABG HCO3 54.1 mmol/L (21.0-28.0); ABG OXYGEN SATURATION 85.7 % (95.0-99.0); ABG PCO2 82 mmHg (35-48)
[2021-07-08] MEDS: POTASSIUM CHLORIDE 10% ELIXIR 20 MEQ/15 ML UDCUP PO PRN ×2 (01:19→03:32)
[2021-07-08] MEDS: MIDAZOLAM 100MG-0.9% NS 100ML 100 ML IV SCH ×2 (01:20→14:58)
[2021-07-08] MEDS: DEXMEDETOMIDINE 400MCG/NS100ML IV SCH ×8 (01:23→22:21)
[2021-07-08] MEDS: INSULIN HUMULIN R 100 UNIT/ML 3ML SQ SCH ×4 (01:33→18:00)
[2021-07-08] MEDS: CISATRACURIUM BESYLATE 100 MG in 0.9%NACL 100ML 90 ML IV PRN (01:57)
[2021-07-08] MEDS: KETAMINE 50MG/ML SYRINGE 500 MG in 0.9% NACL 500ML IV.SOLN 500 ML IV PRN ×4 (01:59→20:16)
[2021-07-08] MEDS: ZOSYN 3.375GM+NS 50ML 50 ML IV SCH ×3 (04:44→21:14)
[2021-07-08] MEDS: FUROSEMIDE 40MG VIAL IV SCH ×3 (04:44→21:13)
[2021-07-08] MEDS: FENTANYL 2500MCG+NS 250ML 250 ML IV SCH ×2 (04:46→20:17)
[2021-07-08] MEDS: CISATRACURIUM BESYLATE 100 MG in 0.9%NACL 100ML 100 ML IV SCH ×3 (04:47→11:24)
[2021-07-08 04:59] LABS: BASOPHILS % (AUTO) 0.3 % (0.0-5.0); EOSINOPHILS % (AUTO) 1.1 % (0.0-8.0); HEMATOCRIT 26.1 % (42-54); LYMPHOCYTES % (AUTO) 7.9 % (21.0-51.0); MEAN CORPUSCULAR HEMOGLOBIN 30.6 pg (27.0-33.0); MEAN CORPUSCULAR HGB CONC 28.4 g/dL (32.0-36.0); MEAN CORPUSCULAR VOLUME 107.9 fL (79-99); MONOCYTES % (AUTO) 5.6 % (3.0-13.0); NEUTROPHILS % (AUTO) 83.1 % (40.0-77.0); NUCLEATED RED BLOOD CELLS 3.7 % (0.0-0.19); PLATELET COUNT (AUTO) 255 K/uL (130-400); RED BLOOD CELL COUNT(AUTO) 2.42 MIL/uL (4.50-6.20); RED CELL DISTRIBUTION WIDTH 21.9 % (11.0-15.5); WHITE BLOOD COUNT (AUTO) 9.2 K/uL (4.8-10.8)
[2021-07-08 06:15] LABS: ALBUMIN 1.9 g/dL (3.5-5.0); BILIRUBIN,TOTAL 0.4 mg/dL (0.2-1.0); CREATININE 0.6 mg/dL (0.5-1.5); CRP QUANTITATIVE 80.1 mg/L (0.00-9.0); POTASSIUM 4.1 mmol/L (3.5-5.1)
[2021-07-08 08:18] LABS: ABG BASE EXCESS 23.7 mmol/L (-2.0-3.0); ABG HCO3 51.2 mmol/L (21.0-28.0); ABG OXYGEN SATURATION 89.1 % (95.0-99.0); ABG PCO2 79 mmHg (35-48)
[2021-07-08] MEDS: POLYETHYLENE GLYCOL 3350 17 GM POWD.PACK PO SCH (09:00)
[2021-07-08] MEDS: FENOFIBRATE NANOCRYSTALLIZED 145 MG TAB PO SCH (09:01)
[2021-07-08] MEDS: LACTULOSE 20 GM/30 ML UDCUP PO SCH ×3 (09:01→21:11)
[2021-07-08] MEDS: FISH OIL 1000 MG/CAP PEG SCH ×2 (09:01→21:13)
[2021-07-08] MEDS: DOCUSATE NA 100MG/10ML UDCUP PO SCH ×2 (09:01→21:00)
[2021-07-08] MEDS: METOLAZONE 2.5 MG TABLET PO SCH (09:02)
[2021-07-08] MEDS: ENOXAPARIN SODIUM 100 MG/1 ML SQ SCH ×2 (09:03→21:12)
[2021-07-08] MEDS: FAMOTIDINE 20MG TAB PO SCH ×2 (09:04→21:12)
[2021-07-08] MEDS: METHADONE HCL 5 MG TABLET PEG SCH ×2 (09:04→21:12)
[2021-07-08] MEDS: METOCLOPRAMIDE 10 MG TABLET PO SCH ×3 (09:05→17:24)
[2021-07-08] MEDS: IRON SUCROSE COMPLEX 100 MG in 0.9%NACL 50ML 50 ML IV SCH (09:05)
[2021-07-08] MEDS: ACETAZOLAMIDE SODIUM 500 MG VIAL IV SCH (09:06)
[2021-07-08] MEDS: BALSAM PERU/CASTOR OIL 60 GM TUBE TP SCH ×3 (09:06→21:46)
[2021-07-08] MEDS: SOLU-MEDROL 40MG VIAL IVP SCH ×2 (09:15→21:12)
[2021-07-08] MEDS: ATORVASTATIN 20 MG TABLET PEG SCH (21:13)
[2021-07-08] MEDS: EZETIMIBE 10 MG TAB PEG SCH (21:13)
[2021-07-08] MEDS: INSULIN GLARGINE 100 UNITS/ML 10 ML VIAL SQ SCH (21:14)
[2021-07-09] VITALS (55 sets, daily range): BP systolic 80–138; BP diastolic 42–80
[2021-07-09] MEDS: DEXMEDETOMIDINE 400MCG/NS100ML IV SCH ×8 (01:33→22:00)
[2021-07-09] MEDS: KETAMINE 50MG/ML SYRINGE 500 MG in 0.9% NACL 500ML IV.SOLN 500 ML IV PRN ×4 (02:36→20:53)
[2021-07-09] MEDS: NACL 0.9% IV SCH ×3 (02:44→19:59)
[2021-07-09] MEDS: CISATRACURIUM BESYLATE IV SCH ×3 (02:44→19:59)
[2021-07-09 04:05] LABS: BASOPHILS % (AUTO) 0.4 % (0.0-5.0); EOSINOPHILS % (AUTO) 0.8 % (0.0-8.0); HEMATOCRIT 28.3 % (42-54); LYMPHOCYTES % (AUTO) 5.7 % (21.0-51.0); MEAN CORPUSCULAR HEMOGLOBIN 30.7 pg (27.0-33.0); MEAN CORPUSCULAR HGB CONC 28.6 g/dL (32.0-36.0); MEAN CORPUSCULAR VOLUME 107.2 fL (79-99); MONOCYTES % (AUTO) 7.1 % (3.0-13.0); NEUTROPHILS % (AUTO) 83.2 % (40.0-77.0); NUCLEATED RED BLOOD CELLS 5.8 % (0.0-0.19); PLATELET COUNT (AUTO) 335 K/uL (130-400); RED BLOOD CELL COUNT(AUTO) 2.64 MIL/uL (4.50-6.20); RED CELL DISTRIBUTION WIDTH 23.3 % (11.0-15.5)
[2021-07-09 04:21] LABS: BILIRUBIN,TOTAL 0.5 mg/dL (0.2-1.0); CREATININE 0.7 mg/dL (0.5-1.5); POTASSIUM 3.9 mmol/L (3.5-5.1); TOTAL PROTEIN, SERUM 5.5 g/dL (6.0-8.3)
[2021-07-09] MEDS: ZOSYN 3.375GM+NS 50ML 50 ML IV SCH ×3 (04:26→20:17)
[2021-07-09 04:37] LABS: BAND NEUTROPHILS % (MANUAL) 14 % (0-2); LYMPHOCYTES % (MANUAL) 6 % (22-44); MONOCYTES % (MANUAL) 4 % (2-9); SEGMENTED NEUTROPHILS % 76 % (40-70)
[2021-07-09 04:38] LABS: MAN.DIFF COMMENT-IMPRESSION MANUAL DIFFERENTIAL
[2021-07-09 04:39] LABS: PLATELET MORPHOLOGY COMMENT ADEQUATE
[2021-07-09] MEDS ORDERED: NOREPINEPHRIN 8MG/250ML NS PMX 250 ML IV ONE (04:45)
[2021-07-09] MEDS: MIDAZOLAM 100MG-0.9% NS 100ML 100 ML IV SCH ×2 (04:57→16:05)
[2021-07-09] MEDS ORDERED: NOREPINEPHRINE BITARTRATE 8 MG in 0.9% NACL 250ML 250 ML IV SCH (05:00)
[2021-07-09] MEDS: INSULIN HUMULIN R 100 UNIT/ML 3ML SQ SCH ×4 (06:06→18:52)
[2021-07-09] MEDS: FUROSEMIDE 40MG VIAL IV SCH ×3 (06:07→20:17)
[2021-07-09] MEDS: LACTULOSE 20 GM/30 ML UDCUP PO SCH ×3 (08:55→20:16)
[2021-07-09] MEDS: DOCUSATE NA 100MG/10ML UDCUP PO SCH ×2 (08:55→20:19)
[2021-07-09] MEDS: METHADONE HCL 5 MG TABLET PEG SCH ×2 (08:56→20:17)
[2021-07-09] MEDS: SOLU-MEDROL 40MG VIAL IVP SCH ×2 (08:56→20:17)
[2021-07-09] MEDS: POTASSIUM CHLORIDE 10% ELIXIR 20 MEQ/15 ML UDCUP NG SCH (08:56)
[2021-07-09] MEDS: FENOFIBRATE NANOCRYSTALLIZED 145 MG TAB PO SCH (08:56)
[2021-07-09] MEDS: FAMOTIDINE 20MG TAB PO SCH ×2 (08:56→20:16)
[2021-07-09] MEDS: FISH OIL 1000 MG/CAP PEG SCH ×2 (08:56→20:16)
[2021-07-09] MEDS: METOLAZONE 2.5 MG TABLET PO SCH (08:57)
[2021-07-09] MEDS: ACETAZOLAMIDE SODIUM 500 MG VIAL IV SCH (08:57)
[2021-07-09] MEDS: POLYETHYLENE GLYCOL 3350 17 GM POWD.PACK PO SCH (08:57)
[2021-07-09] MEDS: METOCLOPRAMIDE 10 MG TABLET PO SCH ×3 (08:57→16:41)
[2021-07-09] MEDS: ENOXAPARIN SODIUM 100 MG/1 ML SQ SCH ×2 (08:58→20:19)
[2021-07-09] MEDS: BALSAM PERU/CASTOR OIL 60 GM TUBE TP SCH ×3 (08:59→20:19)
[2021-07-09] MEDS: IRON SUCROSE COMPLEX 100 MG in 0.9%NACL 50ML 50 ML IV SCH (09:00)
[2021-07-09] MEDS: PHENYLEPHRINE HCL 100 MG in 0.9% NACL 250ML 250 ML IV SCH ×2 (11:01→18:18)
[2021-07-09] MEDS: FENTANYL 2500MCG+NS 250ML 250 ML IV SCH ×2 (13:57→22:29)
[2021-07-09] MEDS: ATORVASTATIN 20 MG TABLET PEG SCH (20:16)
[2021-07-09] MEDS: EZETIMIBE 10 MG TAB PEG SCH (20:16)
[2021-07-09] MEDS: INSULIN GLARGINE 100 UNITS/ML 10 ML VIAL SQ SCH (20:18)
[2021-07-10] VITALS (37 sets, daily range): BP systolic 81–128; BP diastolic 40–72
[2021-07-10] MEDS: INSULIN HUMULIN R 100 UNIT/ML 3ML SQ SCH ×4 (00:09→17:41)
[2021-07-10] MEDS: DEXMEDETOMIDINE 400MCG/NS100ML IV SCH ×7 (00:45→21:14)
[2021-07-10] MEDS: KETAMINE 50MG/ML SYRINGE 500 MG in 0.9% NACL 500ML IV.SOLN 500 ML IV PRN ×3 (02:41→20:11)
[2021-07-10] MEDS: CISATRACURIUM BESYLATE IV SCH ×3 (03:32→19:37)
[2021-07-10] MEDS: NACL 0.9% IV SCH ×3 (03:32→19:37)
[2021-07-10 04:45] LABS: ABG BASE EXCESS 7.3 mmol/L (-2.0-3.0); ABG HCO3 38.2 mmol/L (21.0-28.0); ABG OXYGEN SATURATION 90.4 % (95.0-99.0); ABG PCO2 106 mmHg (35-48)
[2021-07-10 05:25] LABS: BASOPHILS % (AUTO) 0.7 % (0.0-5.0); HEMATOCRIT 26.7 % (42-54); LYMPHOCYTES % (AUTO) 6.2 % (21.0-51.0); MEAN CORPUSCULAR HEMOGLOBIN 31.1 pg (27.0-33.0); MEAN CORPUSCULAR HGB CONC 27.3 g/dL (32.0-36.0); MEAN CORPUSCULAR VOLUME 113.6 fL (79-99); MONOCYTES % (AUTO) 8.3 % (3.0-13.0); NEUTROPHILS % (AUTO) 80.4 % (40.0-77.0); NUCLEATED RED BLOOD CELLS 15.6 % (0.0-0.19); PLATELET COUNT (AUTO) 273 K/uL (130-400); RED BLOOD CELL COUNT(AUTO) 2.35 MIL/uL (4.50-6.20); RED CELL DISTRIBUTION WIDTH 22.8 % (11.0-15.5); WHITE BLOOD COUNT (AUTO) 10.1 K/uL (4.8-10.8)
[2021-07-10] MEDS: FUROSEMIDE 40MG VIAL IV SCH ×3 (05:40→20:52)
[2021-07-10] MEDS: ZOSYN 3.375GM+NS 50ML 50 ML IV SCH ×3 (05:40→20:51)
[2021-07-10] MEDS: MIDAZOLAM 100MG-0.9% NS 100ML 100 ML IV SCH ×2 (05:43→17:40)
[2021-07-10 05:53] LABS: BAND NEUTROPHILS % (MANUAL) 7 % (0-2); LYMPHOCYTES % (MANUAL) 3 % (22-44); MAN.DIFF COMMENT-IMPRESSION MANUAL DIFFERENTIAL; MONOCYTES % (MANUAL) 2 % (2-9); SEGMENTED NEUTROPHILS % 88 % (40-70)
[2021-07-10 06:12] LABS: ALBUMIN 1.7 g/dL (3.5-5.0); BILIRUBIN,TOTAL 0.4 mg/dL (0.2-1.0); CREATININE 1.4 mg/dL (0.5-1.5); POTASSIUM 4.2 mmol/L (3.5-5.1); TOTAL PROTEIN, SERUM 5.1 g/dL (6.0-8.3)
[2021-07-10 06:40] LABS: CRP QUANTITATIVE 262.3 mg/L (0.00-9.0)
[2021-07-10] MEDS: FENTANYL 2500MCG+NS 250ML 250 ML IV SCH ×3 (06:49→23:40)
[2021-07-10] MEDS: POLYETHYLENE GLYCOL 3350 17 GM POWD.PACK PO SCH (09:00)
[2021-07-10] MEDS: LACTULOSE 20 GM/30 ML UDCUP PO SCH ×3 (09:49→21:45)
[2021-07-10] MEDS: ENOXAPARIN SODIUM 100 MG/1 ML SQ SCH ×2 (09:50→20:46)
[2021-07-10] MEDS: METOLAZONE 2.5 MG TABLET PO SCH (09:51)
[2021-07-10] MEDS: FENOFIBRATE NANOCRYSTALLIZED 145 MG TAB PO SCH (09:51)
[2021-07-10] MEDS: DOCUSATE NA 100MG/10ML UDCUP PO SCH ×2 (09:51→21:00)
[2021-07-10] MEDS: POTASSIUM CHLORIDE 10% ELIXIR 20 MEQ/15 ML UDCUP NG SCH (09:51)
[2021-07-10] MEDS: ACETAZOLAMIDE SODIUM 500 MG VIAL IV SCH (09:51)
[2021-07-10] MEDS: METHADONE HCL 5 MG TABLET PEG SCH ×2 (09:52→20:46)
[2021-07-10] MEDS: FAMOTIDINE 20MG TAB PO SCH ×2 (09:52→20:46)
[2021-07-10] MEDS: SOLU-MEDROL 40MG VIAL IVP SCH ×2 (09:52→20:51)
[2021-07-10] MEDS: FISH OIL 1000 MG/CAP PEG SCH ×2 (09:52→20:46)
[2021-07-10] MEDS: BALSAM PERU/CASTOR OIL 60 GM TUBE TP SCH ×3 (09:52→20:48)
[2021-07-10] MEDS: IRON SUCROSE COMPLEX 100 MG in 0.9%NACL 50ML 50 ML IV SCH (09:53)
[2021-07-10] MEDS: METOCLOPRAMIDE 10 MG TABLET PO SCH ×3 (09:55→17:38)
[2021-07-10 13:44] LABS: ALBUMIN 1.7 g/dL (3.5-5.0); BILIRUBIN,TOTAL 0.5 mg/dL (0.2-1.0); CREATININE 1.6 mg/dL (0.5-1.5); POTASSIUM 4.3 mmol/L (3.5-5.1); TOTAL PROTEIN, SERUM 5.2 g/dL (6.0-8.3)
[2021-07-10] MEDS: PHENYLEPHRINE HCL 100 MG in 0.9% NACL 250ML 250 ML IV SCH (15:02)
[2021-07-10] MEDS ORDERED: COMPOUND NARC IV MISC 1 EACH IVSOLN MISC PRN (20:00)
[2021-07-10] MEDS: EZETIMIBE 10 MG TAB PEG SCH (20:46)
[2021-07-10] MEDS: FENTANYL 75 MCG/HR PATCH TD SCH (20:47)
[2021-07-10] MEDS: ATORVASTATIN 20 MG TABLET PEG SCH (20:51)
[2021-07-10] MEDS: INSULIN GLARGINE 100 UNITS/ML 10 ML VIAL SQ SCH (21:00)
[2021-07-11] VITALS (70 sets, daily range): BP systolic 92–152; BP diastolic 48–83
[2021-07-11] MEDS: DEXMEDETOMIDINE 400MCG/NS100ML IV SCH ×7 (00:03→17:36)
[2021-07-11] MEDS: INSULIN HUMULIN R 100 UNIT/ML 3ML SQ SCH ×4 (00:04→17:31)
[2021-07-11] MEDS: KETAMINE 50MG/ML SYRINGE 500 MG in 0.9% NACL 500ML IV.SOLN 500 ML IV PRN ×3 (02:08→15:08)
[2021-07-11] MEDS: NACL 0.9% IV SCH ×3 (02:28→17:33)
[2021-07-11] MEDS: CISATRACURIUM BESYLATE IV SCH ×3 (02:28→17:33)
[2021-07-11] MEDS: MIDAZOLAM 100MG-0.9% NS 100ML 100 ML IV SCH ×2 (03:34→08:24)
[2021-07-11 04:15] LABS: ABG BASE EXCESS 2.9 mmol/L (-2.0-3.0); ABG OXYGEN SATURATION 95.3 % (95.0-99.0); ABG PCO2 96 mmHg (35-48)
[2021-07-11 04:16] LABS: BASOPHILS % (AUTO) 0.6 % (0.0-5.0); EOSINOPHILS % (AUTO) 0.1 % (0.0-8.0); HEMATOCRIT 26.1 % (42-54); LYMPHOCYTES % (AUTO) 4.4 % (21.0-51.0); MEAN CORPUSCULAR HEMOGLOBIN 31.6 pg (27.0-33.0); MONOCYTES % (AUTO) 7.6 % (3.0-13.0); NEUTROPHILS % (AUTO) 82.1 % (40.0-77.0); NUCLEATED RED BLOOD CELLS 19.4 % (0.0-0.19); PLATELET COUNT (AUTO) 243 K/uL (130-400); RED BLOOD CELL COUNT(AUTO) 2.31 MIL/uL (4.50-6.20); WHITE BLOOD COUNT (AUTO) 10.3 K/uL (4.8-10.8)
[2021-07-11 04:21] LABS: ABG BASE EXCESS 4.8 mmol/L (-2.0-3.0); ABG HCO3 34.8 mmol/L (21.0-28.0); ABG OXYGEN SATURATION 95.7 % (95.0-99.0); ABG PCO2 100 mmHg (35-48)
[2021-07-11] MEDS: PHENYLEPHRINE HCL 100 MG in 0.9% NACL 250ML 250 ML IV SCH ×2 (04:42→08:23)
[2021-07-11] MEDS: FUROSEMIDE 40MG VIAL IV SCH ×3 (04:47→21:10)
[2021-07-11] MEDS: ZOSYN 3.375GM+NS 50ML 50 ML IV SCH ×3 (04:47→21:10)
[2021-07-11 04:51] LABS: ALBUMIN 1.7 g/dL (3.5-5.0); BILIRUBIN,TOTAL 0.6 mg/dL (0.2-1.0); CREATININE 1.9 mg/dL (0.5-1.5); POTASSIUM 3.9 mmol/L (3.5-5.1); TOTAL PROTEIN, SERUM 5.4 g/dL (6.0-8.3)
[2021-07-11] MEDS ORDERED: FENTANYL 2500MCG+NS 250ML 250 ML IV ONE ×2 (08:18→13:59)
[2021-07-11] MEDS: FENOFIBRATE NANOCRYSTALLIZED 145 MG TAB PO SCH (08:27)
[2021-07-11] MEDS: ACETAZOLAMIDE SODIUM 500 MG VIAL IV SCH (08:28)
[2021-07-11] MEDS: FAMOTIDINE 20MG TAB PO SCH ×2 (08:28→21:11)
[2021-07-11] MEDS: POTASSIUM CHLORIDE 10% ELIXIR 20 MEQ/15 ML UDCUP NG SCH (08:28)
[2021-07-11] MEDS: METOLAZONE 2.5 MG TABLET PO SCH (08:29)
[2021-07-11] MEDS: POLYETHYLENE GLYCOL 3350 17 GM POWD.PACK PO SCH (08:29)
[2021-07-11] MEDS: METOCLOPRAMIDE 10 MG TABLET PO SCH ×3 (08:29→17:31)
[2021-07-11] MEDS: FISH OIL 1000 MG/CAP PEG SCH ×2 (08:29→21:11)
[2021-07-11] MEDS: DOCUSATE NA 100MG/10ML UDCUP PO SCH ×2 (08:29→21:11)
[2021-07-11] MEDS: LACTULOSE 20 GM/30 ML UDCUP PO SCH ×3 (08:29→21:11)
[2021-07-11] MEDS: SOLU-MEDROL 40MG VIAL IVP SCH ×2 (08:31→21:09)
[2021-07-11] MEDS: BALSAM PERU/CASTOR OIL 60 GM TUBE TP SCH ×3 (08:31→21:12)
[2021-07-11] MEDS: IRON SUCROSE COMPLEX 100 MG in 0.9%NACL 50ML 50 ML IV SCH (09:00)
[2021-07-11 16:08] LABS: CREATININE,URINE RANDOM 3 mg/dL (30-135); SODIUM,URINE RANDOM 140 mmol/l (40-220)
[2021-07-11 16:13] LABS: APPEARANCE,URINE CLOUDY (CLEAR); BILIRUBIN,URINE NEGATIVE (NEGATIVE); COLOR,URINE YELLOW (YELLOW); GLUCOSE, URINE (UA) NEGATIVE (NEGATIVE); KETONES,URINE NEGATIVE (NEGATIVE); LEUKOCYTE ESTERASE ,URINE NEGATIVE (NEGATIVE); NITRATE,URINE NEGATIVE (NEGATIVE); OCCULT BLOOD,URINE MODERATE (NEGATIVE); PROTEIN,URINE NEGATIVE (NEGATIVE); UROBILINOGEN,URINE 0.2 mg/dL (0.2-1.0)
[2021-07-11 16:37] LABS: RBC,URINE 0-1 /HPF (0-1); WBC,URINE 0-1 /HPF (0-1); YEAST,URINE BUDDING Moderate /HPF (None Seen)
[2021-07-11 16:38] LABS: BACTERIA,URINE Few /HPF (None Seen); SQUAMOUS EPITHELIAL CELL,UR Rare /HPF (0-2)
[2021-07-11 16:39] LABS: % IRON SATURATION 112.9 % (30-44)
[2021-07-11] MEDS: INSULIN GLARGINE 100 UNITS/ML 10 ML VIAL SQ SCH (21:00)
[2021-07-11] MEDS: EZETIMIBE 10 MG TAB PEG SCH (21:11)
[2021-07-11] MEDS: ATORVASTATIN 20 MG TABLET PEG SCH (21:11)
[2021-07-12] VITALS (59 sets, daily range): BP systolic 92–130; BP diastolic 51–72
[2021-07-12] MEDS ORDERED: FENTANYL 2500MCG+NS 250ML 250 ML IV ONE ×2 (00:06→09:56)
[2021-07-12] MEDS: DEXMEDETOMIDINE 400MCG/NS100ML IV SCH ×9 (02:02→23:33)
[2021-07-12] MEDS: NACL 0.9% IV SCH ×3 (02:03→15:19)
[2021-07-12] MEDS: CISATRACURIUM BESYLATE IV SCH ×3 (02:03→15:19)
[2021-07-12] MEDS: KETAMINE 50MG/ML SYRINGE 500 MG in 0.9% NACL 500ML IV.SOLN 500 ML IV PRN ×4 (02:37→20:27)
[2021-07-12] MEDS: FENTANYL CITRATE PF 0.05 MG/ML 1,000 MCG in 0.9%NACL 100ML 100 ML IVPB PRN ×2 (03:25→09:59)
[2021-07-12 04:14] LABS: BASOPHILS % (AUTO) 0.4 % (0.0-5.0); EOSINOPHILS % (AUTO) 0.1 % (0.0-8.0); HEMATOCRIT 25.8 % (42-54); LYMPHOCYTES % (AUTO) 4.9 % (21.0-51.0); MEAN CORPUSCULAR HEMOGLOBIN 30.9 pg (27.0-33.0); MEAN CORPUSCULAR HGB CONC 27.5 g/dL (32.0-36.0); MEAN CORPUSCULAR VOLUME 112.2 fL (79-99); MONOCYTES % (AUTO) 10.8 % (3.0-13.0); NEUTROPHILS % (AUTO) 78.2 % (40.0-77.0); NUCLEATED RED BLOOD CELLS 24.1 % (0.0-0.19); PLATELET COUNT (AUTO) 216 K/uL (130-400); RED CELL DISTRIBUTION WIDTH 23.6 % (11.0-15.5); WHITE BLOOD COUNT (AUTO) 12.1 K/uL (4.8-10.8)
[2021-07-12] MEDS: MIDAZOLAM 100MG-0.9% NS 100ML 100 ML IV SCH ×2 (04:24→17:56)
[2021-07-12 04:50] LABS: ABG BASE EXCESS 1.6 mmol/L (-2.0-3.0); ABG HCO3 32.3 mmol/L (21.0-28.0); ABG OXYGEN SATURATION 94.9 % (95.0-99.0); ABG PCO2 104 mmHg (35-48)
[2021-07-12 04:50] LABS: ALBUMIN 1.7 g/dL (3.5-5.0); BILIRUBIN,TOTAL 0.6 mg/dL (0.2-1.0); MAGNESIUM 1.6 mg/dL (1.80-2.40); PHOSPHORUS 4.2 mg/dL (2.5-4.9); POTASSIUM 3.9 mmol/L (3.5-5.1); TOTAL PROTEIN, SERUM 5.2 g/dL (6.0-8.3)
[2021-07-12 05:13] LABS: BAND NEUTROPHILS % (MANUAL) 12 % (0-2); LYMPHOCYTES % (MANUAL) 8 % (22-44); MAN.DIFF COMMENT-IMPRESSION MANUAL DIFFERENTIAL; MONOCYTES % (MANUAL) 8 % (2-9); SEGMENTED NEUTROPHILS % 72 % (40-70)
[2021-07-12] MEDS: ZOSYN 3.375GM+NS 50ML 50 ML IV SCH ×3 (05:44→20:32)
[2021-07-12] MEDS: FUROSEMIDE 40MG VIAL IV SCH ×3 (05:44→17:00)
[2021-07-12] MEDS: INSULIN HUMULIN R 100 UNIT/ML 3ML SQ SCH ×4 (05:48→17:25)
[2021-07-12] MEDS: POLYETHYLENE GLYCOL 3350 17 GM POWD.PACK PO SCH (09:00)
[2021-07-12] MEDS: LACTULOSE 20 GM/30 ML UDCUP PO SCH ×3 (09:00→20:32)
[2021-07-12] MEDS: DOCUSATE NA 100MG/10ML UDCUP PO SCH ×2 (09:00→20:32)
[2021-07-12] MEDS: PHENYLEPHRINE HCL 100 MG in 0.9% NACL 250ML 250 ML IV SCH (09:29)
[2021-07-12] MEDS: ACETAZOLAMIDE SODIUM 500 MG VIAL IV SCH (09:30)
[2021-07-12] MEDS: POTASSIUM CHLORIDE 10% ELIXIR 20 MEQ/15 ML UDCUP NG SCH (09:31)
[2021-07-12] MEDS: METOLAZONE 2.5 MG TABLET PO SCH (09:31)
[2021-07-12] MEDS: FAMOTIDINE 20MG TAB PO SCH (09:31)
[2021-07-12] MEDS: SOLU-MEDROL 40MG VIAL IVP SCH ×2 (09:31→20:32)
[2021-07-12] MEDS: METOCLOPRAMIDE 10 MG TABLET PO SCH ×3 (09:31→17:12)
[2021-07-12] MEDS: FISH OIL 1000 MG/CAP PEG SCH ×2 (09:31→20:33)
[2021-07-12] MEDS: BALSAM PERU/CASTOR OIL 60 GM TUBE TP SCH ×3 (09:32→20:32)
[2021-07-12 09:53] LABS: CRP QUANTITATIVE 144.7 mg/L (0.00-9.0)
[2021-07-12 09:56] LABS: INR 1.23 (0.85-1.15); PROTHROMBIN TIME 13.2 SEC (9.6-11.6)
[2021-07-12 09:57] LABS: PARTIAL THROMBOPLASTIN TIME 36.7 SEC (26.3-35.5)
[2021-07-12] MEDS: IRON SUCROSE COMPLEX 100 MG in 0.9%NACL 50ML 50 ML IV SCH ×2 (10:24→10:25)
[2021-07-12] MEDS: MAGNESIUM 2GM PREMIX 50ML 50 ML IV PRN ×2 (15:32→17:55)
[2021-07-12] MEDS: INSULIN GLARGINE 100 UNITS/ML 10 ML VIAL SQ SCH (20:31)
[2021-07-12] MEDS: EZETIMIBE 10 MG TAB PEG SCH (20:32)
[2021-07-12] MEDS: FENTANYL 2500MCG+NS 250ML 250 ML IV SCH (20:37)
[2021-07-13] VITALS (46 sets, daily range): BP systolic 93–110; BP diastolic 43–60
[2021-07-13] MEDS: INSULIN HUMULIN R 100 UNIT/ML 3ML SQ SCH ×5 (00:22→23:49)
[2021-07-13] MEDS: CISATRACURIUM BESYLATE IV SCH ×2 (01:05→18:33)
[2021-07-13] MEDS: NACL 0.9% IV SCH ×2 (01:05→18:33)
[2021-07-13] MEDS: KETAMINE 50MG/ML SYRINGE 500 MG in 0.9% NACL 500ML IV.SOLN 500 ML IV PRN ×4 (01:44→19:46)
[2021-07-13] MEDS: DEXMEDETOMIDINE 400MCG/NS100ML IV SCH ×7 (02:14→23:05)
[2021-07-13] MEDS: MIDAZOLAM 100MG-0.9% NS 100ML 100 ML IV SCH ×3 (03:54→18:31)
[2021-07-13] MEDS: ZOSYN 3.375GM+NS 50ML 50 ML IV SCH ×3 (05:18→20:01)
[2021-07-13] MEDS: FUROSEMIDE 40MG VIAL IV SCH ×2 (05:19→18:29)
[2021-07-13 06:28] LABS: BASOPHILS % (AUTO) 0.4 % (0.0-5.0); HEMATOCRIT 26.5 % (42-54); LYMPHOCYTES % (AUTO) 7.7 % (21.0-51.0); MEAN CORPUSCULAR HEMOGLOBIN 30.9 pg (27.0-33.0); MEAN CORPUSCULAR HGB CONC 26.8 g/dL (32.0-36.0); MEAN CORPUSCULAR VOLUME 115.2 fL (79-99); MONOCYTES % (AUTO) 7.3 % (3.0-13.0); NEUTROPHILS % (AUTO) 81.2 % (40.0-77.0); NUCLEATED RED BLOOD CELLS 29.1 % (0.0-0.19); PLATELET COUNT (AUTO) 158 K/uL (130-400); RED CELL DISTRIBUTION WIDTH 23.5 % (11.0-15.5); WHITE BLOOD COUNT (AUTO) 7.8 K/uL (4.8-10.8)
[2021-07-13] MEDS: FENTANYL 2500MCG+NS 250ML 250 ML IV SCH ×2 (06:45→18:32)
[2021-07-13 06:49] LABS: ALBUMIN 1.6 g/dL (3.5-5.0); BILIRUBIN,DIRECT 0.3 mg/dL (0.0-0.3); BILIRUBIN,TOTAL 0.5 mg/dL (0.2-1.0); CREATININE 2.2 mg/dL (0.5-1.5); CRP QUANTITATIVE 120.3 mg/L (0.00-9.0); POTASSIUM 3.7 mmol/L (3.5-5.1)
[2021-07-13 06:59] LABS: ABG BASE EXCESS 4.3 mmol/L (-2.0-3.0); ABG HCO3 35.6 mmol/L (21.0-28.0); ABG OXYGEN SATURATION 95.4 % (95.0-99.0); ABG PCO2 122 mmHg (35-48)
[2021-07-13 07:35] LABS: BAND NEUTROPHILS % (MANUAL) 1 % (0-2); LYMPHOCYTES % (MANUAL) 7 % (22-44); MAN.DIFF COMMENT-IMPRESSION MANUAL DIFFERENTIAL; MONOCYTES % (MANUAL) 4 % (2-9); MYELOCYTES % 1 % (0-0); PLATELET MORPHOLOGY COMMENT ADEQUATE; SEGMENTED NEUTROPHILS % 87 % (40-70)
[2021-07-13] MEDS: LACTULOSE 20 GM/30 ML UDCUP PO SCH (08:25)
[2021-07-13] MEDS: POTASSIUM CHLORIDE 10% ELIXIR 20 MEQ/15 ML UDCUP NG SCH (08:25)
[2021-07-13] MEDS: DOCUSATE NA 100MG/10ML UDCUP PO SCH ×2 (08:25→19:45)
[2021-07-13] MEDS: SOLU-MEDROL 40MG VIAL IVP SCH ×2 (08:25→20:01)
[2021-07-13] MEDS: FISH OIL 1000 MG/CAP PEG SCH ×2 (08:26→19:46)
[2021-07-13] MEDS: POLYETHYLENE GLYCOL 3350 17 GM POWD.PACK PO SCH (08:27)
[2021-07-13] MEDS: ACETAZOLAMIDE SODIUM 500 MG VIAL IV SCH (08:27)
[2021-07-13] MEDS: METOCLOPRAMIDE 10 MG TABLET PO SCH ×3 (08:27→18:29)
[2021-07-13] MEDS: BALSAM PERU/CASTOR OIL 60 GM TUBE TP SCH ×3 (08:28→20:01)
[2021-07-13] MEDS ORDERED: PANTOPRAZOLE 40 MG TAB DR PO SCH (09:00)
[2021-07-13 13:23] LABS: ABG BASE EXCESS 2.2 mmol/L (-2.0-3.0); ABG HCO3 32.4 mmol/L (21.0-28.0); ABG OXYGEN SATURATION 83.1 % (95.0-99.0); ABG PCO2 101 mmHg (35-48)
[2021-07-13] MEDS: EZETIMIBE 10 MG TAB PEG SCH (19:46)
[2021-07-13] MEDS: INSULIN GLARGINE 100 UNITS/ML 10 ML VIAL SQ SCH (19:47)
[2021-07-13] MEDS: PHARMACY COMMUNICATION MISC SCH (20:55)
[2021-07-14] VITALS (28 sets, daily range): BP systolic 95–113; BP diastolic 48–56
[2021-07-14] MEDS: PHARMACY COMMUNICATION MISC SCH ×3 (01:52→18:04)
[2021-07-14] MEDS: FENTANYL 2500MCG+NS 250ML 250 ML IV SCH ×3 (01:53→23:47)
[2021-07-14] MEDS: DEXMEDETOMIDINE 400MCG/NS100ML IV SCH ×6 (01:54→21:49)
[2021-07-14] MEDS: KETAMINE 50MG/ML SYRINGE 500 MG in 0.9% NACL 500ML IV.SOLN 500 ML IV PRN ×2 (01:54→07:47)
[2021-07-14] MEDS: INSULIN HUMULIN R 100 UNIT/ML 3ML SQ SCH ×4 (05:11→23:52)
[2021-07-14] MEDS: ZOSYN 3.375GM+NS 50ML 50 ML IV SCH ×3 (05:35→21:05)
[2021-07-14] MEDS: FUROSEMIDE 40MG VIAL IV SCH (05:51)
[2021-07-14 06:25] LABS: BASOPHILS % (AUTO) 0.2 % (0.0-5.0); HEMATOCRIT 25.2 % (42-54); LYMPHOCYTES % (AUTO) 8.9 % (21.0-51.0); MEAN CORPUSCULAR HEMOGLOBIN 30.5 pg (27.0-33.0); MONOCYTES % (AUTO) 6.7 % (3.0-13.0); NEUTROPHILS % (AUTO) 81.6 % (40.0-77.0); NUCLEATED RED BLOOD CELLS 27.2 % (0.0-0.19); PLATELET COUNT (AUTO) 138 K/uL (130-400); RED BLOOD CELL COUNT(AUTO) 2.23 MIL/uL (4.50-6.20); RED CELL DISTRIBUTION WIDTH 23.5 % (11.0-15.5); WHITE BLOOD COUNT (AUTO) 9.4 K/uL (4.8-10.8)
[2021-07-14 06:40] LABS: ABG BASE EXCESS -2.5 mmol/L (-2.0-3.0); ABG HCO3 28.2 mmol/L (21.0-28.0); ABG OXYGEN SATURATION 97.3 % (95.0-99.0); ABG PCO2 79 mmHg (35-48)
[2021-07-14 06:43] LABS: ALBUMIN 1.5 g/dL (3.5-5.0); BILIRUBIN,TOTAL 0.5 mg/dL (0.2-1.0); CREATININE 2.3 mg/dL (0.5-1.5); CRP QUANTITATIVE 90.2 mg/L (0.00-9.0); POTASSIUM 3.3 mmol/L (3.5-5.1); TOTAL PROTEIN, SERUM 4.9 g/dL (6.0-8.3)
[2021-07-14] MEDS: CISATRACURIUM BESYLATE IV SCH ×2 (06:56→22:49)
[2021-07-14] MEDS: NACL 0.9% IV SCH ×2 (06:56→22:49)
[2021-07-14 08:32] LABS: HEMATOCRIT 24.7 % (42-54)
[2021-07-14] MEDS: ACETAZOLAMIDE SODIUM 500 MG VIAL IV SCH (09:06)
[2021-07-14] MEDS: DOCUSATE NA 100MG/10ML UDCUP PO SCH ×2 (09:07→21:00)
[2021-07-14] MEDS: FISH OIL 1000 MG/CAP PEG SCH ×2 (09:07→21:05)
[2021-07-14] MEDS: POTASSIUM CHLORIDE 10% ELIXIR 20 MEQ/15 ML UDCUP NG SCH (09:07)
[2021-07-14] MEDS: SOLU-MEDROL 40MG VIAL IVP SCH (09:07)
[2021-07-14] MEDS: IRON SUCROSE COMPLEX 100 MG in 0.9%NACL 50ML 50 ML IV SCH (09:07)
[2021-07-14] MEDS: POLYETHYLENE GLYCOL 3350 17 GM POWD.PACK PO SCH (09:07)
[2021-07-14] MEDS: BALSAM PERU/CASTOR OIL 60 GM TUBE TP SCH ×2 (09:08→13:53)
[2021-07-14] MEDS: METOCLOPRAMIDE 10 MG TABLET PO SCH ×3 (09:08→16:52)
[2021-07-14] MEDS: MIDAZOLAM 100MG-0.9% NS 100ML 100 ML IV SCH (09:11)
[2021-07-14 09:19] LABS: MAGNESIUM 2.3 mg/dL (1.80-2.40)
[2021-07-14] MEDS ORDERED: PANTOPRAZOLE 40 MG/VIAL IVP SCH (10:00)
[2021-07-14] MEDS: PANTOPRAZOLE 40 MG/VIAL IVP SCH (10:00)
[2021-07-14] MEDS ORDERED: PROPOFOL 1000 MG/100 ML IV PRN (15:30)
[2021-07-14] MEDS ORDERED: PHARMACY COMMUNICATION MISC SCH (15:30)
[2021-07-14] MEDS ORDERED: BUMETANIDE 0.25MG/ML 40ML IV SCH (16:00)
[2021-07-14] MEDS: BUMETANIDE 1MG/4ML VIAL IVP SCH (16:52)
[2021-07-14] MEDS: INSULIN GLARGINE 100 UNITS/ML 10 ML VIAL SQ SCH (21:00)
[2021-07-14] MEDS: EZETIMIBE 10 MG TAB PEG SCH (21:05)
[2021-07-14 21:15] LABS: HEMATOCRIT 29.2 % (42-54)
[2021-07-15] VITALS (24 sets, daily range): BP systolic 82–106; BP diastolic 35–52
[2021-07-15] MEDS: DEXMEDETOMIDINE 400MCG/NS100ML IV SCH ×6 (01:40→23:07)
[2021-07-15] MEDS: PHARMACY COMMUNICATION MISC SCH ×4 (03:30→23:49)
[2021-07-15 04:43] LABS: BASOPHILS % (AUTO) 0.3 % (0.0-5.0); HEMATOCRIT 28.2 % (42-54); LYMPHOCYTES % (AUTO) 9.4 % (21.0-51.0); MEAN CORPUSCULAR HEMOGLOBIN 31.2 pg (27.0-33.0); MEAN CORPUSCULAR HGB CONC 28.7 g/dL (32.0-36.0); MEAN CORPUSCULAR VOLUME 108.5 fL (79-99); MONOCYTES % (AUTO) 5.5 % (3.0-13.0); NUCLEATED RED BLOOD CELLS 27.2 % (0.0-0.19); PLATELET COUNT (AUTO) 123 K/uL (130-400); RED CELL DISTRIBUTION WIDTH 23.5 % (11.0-15.5); WHITE BLOOD COUNT (AUTO) 9.8 K/uL (4.8-10.8)
[2021-07-15 05:02] LABS: ALBUMIN 1.5 g/dL (3.5-5.0); BILIRUBIN,TOTAL 0.7 mg/dL (0.2-1.0); CREATININE 2.5 mg/dL (0.5-1.5); POTASSIUM 3.4 mmol/L (3.5-5.1); TOTAL PROTEIN, SERUM 4.9 g/dL (6.0-8.3)
[2021-07-15 05:13] LABS: LYMPHOCYTES % (MANUAL) 11 % (22-44); MONOCYTES % (MANUAL) 3 % (2-9); REACTIVE LYMPHOCYTES 4 % (0-0); SEGMENTED NEUTROPHILS % 82 % (40-70)
[2021-07-15 05:14] LABS: MAN.DIFF COMMENT-IMPRESSION MANUAL DIFFERENTIAL; PLATELET MORPHOLOGY COMMENT SLIGHTLY DECREASED
[2021-07-15] MEDS: ZOSYN 3.375GM+NS 50ML 50 ML IV SCH ×3 (05:34→21:00)
[2021-07-15] MEDS: INSULIN HUMULIN R 100 UNIT/ML 3ML SQ SCH ×4 (05:34→23:48)
[2021-07-15] MEDS: MIDAZOLAM 100MG-0.9% NS 100ML 100 ML IV SCH ×2 (05:36→17:22)
[2021-07-15 07:06] LABS: ABG BASE EXCESS -3.7 mmol/L (-2.0-3.0); ABG HCO3 26.8 mmol/L (21.0-28.0); ABG OXYGEN SATURATION 85.8 % (95.0-99.0); ABG PCO2 88 mmHg (35-48)
[2021-07-15] MEDS: PANTOPRAZOLE 40 MG/VIAL IVP SCH (08:49)
[2021-07-15] MEDS: METOCLOPRAMIDE 10 MG TABLET PO SCH ×3 (08:49→17:00)
[2021-07-15] MEDS: DEXAMETHASONE SOD PHOSPHATE 4 MG/ML 1ML VIAL IVP SCH (08:50)
[2021-07-15] MEDS: ACETAZOLAMIDE SODIUM 500 MG VIAL IV SCH (08:50)
[2021-07-15] MEDS: FISH OIL 1000 MG/CAP PEG SCH ×2 (08:51→21:00)
[2021-07-15] MEDS: DOCUSATE NA 100MG/10ML UDCUP PO SCH ×2 (08:51→19:43)
[2021-07-15] MEDS: POTASSIUM CHLORIDE 10% ELIXIR 20 MEQ/15 ML UDCUP NG SCH (08:53)
[2021-07-15] MEDS: POLYETHYLENE GLYCOL 3350 17 GM POWD.PACK PO SCH (08:53)
[2021-07-15] MEDS: IRON SUCROSE COMPLEX 100 MG in 0.9%NACL 50ML 50 ML IV SCH (09:11)
[2021-07-15] MEDS: FENTANYL 2500MCG+NS 250ML 250 ML IV SCH ×2 (09:12→18:59)
[2021-07-15 14:21] LABS: CREATININE 2.6 mg/dL (0.5-1.5); MAGNESIUM 2.1 mg/dL (1.80-2.40); PHOSPHORUS 4.1 mg/dL (2.5-4.9); POTASSIUM 3.8 mmol/L (3.5-5.1)
[2021-07-15] MEDS: NACL 0.9% IV SCH (14:52)
[2021-07-15] MEDS: CISATRACURIUM BESYLATE IV SCH (14:52)
[2021-07-15] MEDS: BUMETANIDE 1MG/4ML VIAL IVP SCH (16:00)
[2021-07-15] MEDS: PHENYLEPHRINE HCL 100 MG in 0.9% NACL 250ML 250 ML IV SCH (17:25)
[2021-07-15] MEDS: INSULIN GLARGINE 100 UNITS/ML 10 ML VIAL SQ SCH (19:41)
[2021-07-15] MEDS: EZETIMIBE 10 MG TAB PEG SCH (21:01)
[2021-07-16] VITALS (26 sets, daily range): BP systolic 62–158; BP diastolic 24–103
[2021-07-16 04:26] LABS: ABG BASE EXCESS -5.8 mmol/L (-2.0-3.0); ABG HCO3 27.2 mmol/L (21.0-28.0); ABG PCO2 120 mmHg (35-48)
[2021-07-16] MEDS: ZOSYN 3.375GM+NS 50ML 50 ML IV SCH ×3 (04:47→21:29)
[2021-07-16] MEDS: DEXMEDETOMIDINE 400MCG/NS100ML IV SCH ×4 (04:57→23:41)
[2021-07-16] MEDS ORDERED: DEXTROSE 50%-WATER 50 ML DISP.SYRIN IV ONE ×2 (05:35→18:00)
[2021-07-16] MEDS: INSULIN HUMULIN R 100 UNIT/ML 3ML SQ SCH ×3 (05:40→17:45)
[2021-07-16 06:36] LABS: BASOPHILS % (AUTO) 0.2 % (0.0-5.0); EOSINOPHILS % (AUTO) 1.8 % (0.0-8.0); HEMATOCRIT 28.3 % (42-54); LYMPHOCYTES % (AUTO) 9.3 % (21.0-51.0); MEAN CORPUSCULAR HEMOGLOBIN 30.9 pg (27.0-33.0); MEAN CORPUSCULAR HGB CONC 27.9 g/dL (32.0-36.0); MEAN CORPUSCULAR VOLUME 110.5 fL (79-99); MONOCYTES % (AUTO) 4.1 % (3.0-13.0); NUCLEATED RED BLOOD CELLS 32.7 % (0.0-0.19); PLATELET COUNT (AUTO) 134 K/uL (130-400); RED BLOOD CELL COUNT(AUTO) 2.56 MIL/uL (4.50-6.20); RED CELL DISTRIBUTION WIDTH 24.4 % (11.0-15.5); WHITE BLOOD COUNT (AUTO) 12.5 K/uL (4.8-10.8)
[2021-07-16 06:42] LABS: POTASSIUM 3.8 mmol/L (3.5-5.1)
[2021-07-16 06:54] LABS: ALBUMIN 1.4 g/dL (3.5-5.0); BILIRUBIN,TOTAL 0.8 mg/dL (0.2-1.0); CREATININE 2.8 mg/dL (0.5-1.5); CRP QUANTITATIVE 119.9 mg/L (0.00-9.0); TOTAL PROTEIN, SERUM 4.7 g/dL (6.0-8.3)
[2021-07-16 07:21] LABS: LYMPHOCYTES % (MANUAL) 26 % (22-44); MAN.DIFF COMMENT-IMPRESSION MANUAL DIFFERENTIAL; MONOCYTES % (MANUAL) 13 % (2-9); SEGMENTED NEUTROPHILS % 61 % (40-70)
[2021-07-16 07:25] LABS: PLATELET MORPHOLOGY COMMENT SLIGHTLY DECREASED
[2021-07-16] MEDS: METOCLOPRAMIDE 10 MG TABLET PO SCH ×3 (08:00→16:16)
[2021-07-16] MEDS: PHARMACY COMMUNICATION MISC SCH ×2 (08:57→17:45)
[2021-07-16] MEDS: IRON SUCROSE COMPLEX 100 MG in 0.9%NACL 50ML 50 ML IV SCH (09:00)
[2021-07-16] MEDS: PANTOPRAZOLE 40 MG/VIAL IVP SCH (09:27)
[2021-07-16] MEDS: FISH OIL 1000 MG/CAP PEG SCH ×2 (09:27→21:29)
[2021-07-16] MEDS: POLYETHYLENE GLYCOL 3350 17 GM POWD.PACK PO SCH (09:27)
[2021-07-16] MEDS: DOCUSATE NA 100MG/10ML UDCUP PO SCH ×2 (09:27→19:29)
[2021-07-16] MEDS: POTASSIUM CHLORIDE 10% ELIXIR 20 MEQ/15 ML UDCUP NG SCH (09:27)
[2021-07-16] MEDS: DEXAMETHASONE SOD PHOSPHATE 4 MG/ML 1ML VIAL IVP SCH (09:28)
[2021-07-16] MEDS: CISATRACURIUM BESYLATE IV SCH (09:42)
[2021-07-16] MEDS: NACL 0.9% IV SCH (09:42)
[2021-07-16] MEDS: FENTANYL 2500MCG+NS 250ML 250 ML IV SCH ×2 (09:43→23:41)
[2021-07-16] MEDS: MIDAZOLAM 100MG-0.9% NS 100ML 100 ML IV SCH (09:43)
[2021-07-16] MEDS: PHENYLEPHRINE HCL 100 MG in 0.9% NACL 250ML 250 ML IV SCH ×2 (09:44→23:21)
[2021-07-16] MEDS: SODIUM BICARB 50MEQ 50ML VIAL IV SCH ×2 (13:34→18:16)
[2021-07-16 13:51] LABS: ABG BASE EXCESS -4.5 mmol/L (-2.0-3.0); ABG HCO3 26.9 mmol/L (21.0-28.0); ABG OXYGEN SATURATION 90.5 % (95.0-99.0); ABG PCO2 98 mmHg (35-48)
[2021-07-16] MEDS: BUMETANIDE 1MG/4ML VIAL IVP SCH (14:48)
[2021-07-16] MEDS ORDERED: NOREPINEPHRIN 4MG/NS 250ML 250 ML IV SCH (18:00)
[2021-07-16] MEDS ORDERED: SODIUM BICARB 50MEQ 50ML VIAL IV SCH (18:00)
[2021-07-16] MEDS: DEXTROSE 50%-WATER 50 ML DISP.SYRIN IV PRN ×2 (18:01→18:14)
[2021-07-16] MEDS: INSULIN GLARGINE 100 UNITS/ML 10 ML VIAL SQ SCH (19:29)
[2021-07-16] MEDS: EZETIMIBE 10 MG TAB PEG SCH (21:29)
[2021-07-17 00:23] VITALS: BP 48/27
== END 2021-07-17 00:37 | DRG 870 ==
LOC: EDH 14:50 → EDHIP 17:32 → 2BH 05-12 17:06
PROVIDERS: ADMIT Internal Medicine; ATTEND Internal Medicine
PROC: 5A09457 Assistance with Respiratory Ventilation, 24-96 Consecutive Hours, Continuous Positive Airway Pressure (ICD-10-PCS; 2021-05-12)
PROC: 5A0935A Assistance with Respiratory Ventilation, Less than 24 Consecutive Hours, High Flow/Velocity Cannula (ICD-10-PCS; 2021-05-12)
PROC: XW033E5 Introduction of Remdesivir Anti-infective into Peripheral Vein, Percutaneous Approach, New Technology Group 5 (ICD-10-PCS; 2021-05-12)
PROC: XW0DXM6 Introduction of Baricitinib into Mouth and Pharynx, External Approach, New Technology Group 6 (ICD-10-PCS; 2021-05-12)
PROC: 5A09357 Assistance with Respiratory Ventilation, Less than 24 Consecutive Hours, Continuous Positive Airway Pressure (ICD-10-PCS; 2021-05-16)
PROC: 5A09357 Assistance with Respiratory Ventilation, Less than 24 Consecutive Hours, Continuous Positive Airway Pressure (ICD-10-PCS; 2021-05-17)
PROC: 5A09357 Assistance with Respiratory Ventilation, Less than 24 Consecutive Hours, Continuous Positive Airway Pressure (ICD-10-PCS; 2021-05-18)
PROC: 5A09357 Assistance with Respiratory Ventilation, Less than 24 Consecutive Hours, Continuous Positive Airway Pressure (ICD-10-PCS; 2021-05-19)
PROC: 5A09357 Assistance with Respiratory Ventilation, Less than 24 Consecutive Hours, Continuous Positive Airway Pressure (ICD-10-PCS; 2021-05-20)
PROC: 5A09357 Assistance with Respiratory Ventilation, Less than 24 Consecutive Hours, Continuous Positive Airway Pressure (ICD-10-PCS; 2021-05-22)
PROC: 5A1955Z Respiratory Ventilation, Greater than 96 Consecutive Hours (ICD-10-PCS; 2021-05-23)
PROC: 0BH17EZ Insertion of Endotracheal Airway into Trachea, Via Natural or Artificial Opening (ICD-10-PCS; 2021-05-23)
PROC: 5A09357 Assistance with Respiratory Ventilation, Less than 24 Consecutive Hours, Continuous Positive Airway Pressure (ICD-10-PCS; 2021-05-23)
PROC: 05HN33Z Insertion of Infusion Device into Left Internal Jugular Vein, Percutaneous Approach (ICD-10-PCS; 2021-05-24)
PROC: B544ZZA Ultrasonography of Left Jugular Veins, Guidance (ICD-10-PCS; 2021-05-24)
PROC: 30233N1 Transfusion of Nonautologous Red Blood Cells into Peripheral Vein, Percutaneous Approach (ICD-10-PCS; principal; 2021-05-31)
PROC: 03HY32Z Insertion of Monitoring Device into Upper Artery, Percutaneous Approach (ICD-10-PCS; 2021-06-10)
PROC: 0B9D8ZX Drainage of Right Middle Lung Lobe, Via Natural or Artificial Opening Endoscopic, Diagnostic (ICD-10-PCS; 2021-06-10)
DX: A41.89 Other specified sepsis (principal); U07.1 COVID-19; J12.82 Pneumonia due to coronavirus disease 2019; J80 Acute respiratory distress syndrome; E43 Unspecified severe protein-calorie malnutrition; R65.21 Severe sepsis with septic shock; K72.00 Acute and subacute hepatic failure without coma; N17.9 Acute kidney failure, unspecified; T79.7XXA Traumatic subcutaneous emphysema, initial encounter; E87.1 Hypo-osmolality and hyponatremia; D62 Acute posthemorrhagic anemia; E87.0 Hyperosmolality and hypernatremia; I82.431 Acute embolism and thrombosis of right popliteal vein; D68.59 Other primary thrombophilia; I82.B12 Acute embolism and thrombosis of left subclavian vein; N39.0 Urinary tract infection, site not specified; I82.B19 Acute embolism and thrombosis of unspecified subclavian vein; K92.2 Gastrointestinal hemorrhage, unspecified; I82.A12 Acute embolism and thrombosis of left axillary vein; Z68.42 Body mass index [BMI] 45.0-49.9, adult; E87.6 Hypokalemia; E88.09 Other disorders of plasma-protein metabolism, not elsewhere classified; E11.65 Type 2 diabetes mellitus with hyperglycemia; B97.89 Other viral agents as the cause of diseases classified elsewhere; E66.01 Morbid (severe) obesity due to excess calories; R74.8 Abnormal levels of other serum enzymes; E87.5 Hyperkalemia; B35.4 Tinea corporis; E78.1 Pure hyperglyceridemia; B96.20 Unspecified Escherichia coli [E. coli] as the cause of diseases classified elsewhere; E78.00 Pure hypercholesterolemia, unspecified; E78.5 Hyperlipidemia, unspecified; E87.70 Fluid overload, unspecified; I10 Essential (primary) hypertension; L89.819 Pressure ulcer of head, unspecified stage; L89.899 Pressure ulcer of other site, unspecified stage; Y95 Nosocomial condition; Y92.89 Other specified places as the place of occurrence of the external cause; Z87.891 Personal history of nicotine dependence; Z93.1 Gastrostomy status; Z86.718 Personal history of other venous thrombosis and embolism; Z83.3 Family history of diabetes mellitus; Y92.9 Unspecified place or not applicable
CPT/HCPCS: 31500; 36415; 36430; 36600; 71045; 76770; 80048; 80053; 80061; 80076; 80202; 80305; 81001; 82044; 82140; 82150; 82270; 82435; 82550; 82570; 82607; 82728; 82746; 82803; 82947; 82948; 83036; 83540; 83550; 83605; 83615; 83690; 83735; 83880; 83935; 84100; 84132; 84134; 84145; 84295; 84300; 84443; 84478; 84484; 84550; 85014; 85018; 85025; 85027; 85045; 85378; 85610; 85651; 85730; 86140; 86606; 86612; 86635; 86698; 86738; 86850; 86900; 86901; 86923; 87040; 87046; 87070; 87071; 87077; 87088; 87186; 87205; 87426; 87449; 87486; 87581; 87633; 87637; 87798; 92950; 93005; 93306; 93970; 94002; 94003; 94640; 94660; A4344; C1751; C1894; C9113; G0378; J0360; J0461; J0696; J1100; J1120; J1450; J1644; J1650; J1756; J1815; J1940; J2020; J2060; J2185; J2250; J2370; J2543; J2704; J2720; J2765; J2920; J3010; J3370; J3475; J3480; J3490; J7040; J7050; J7070; J7608; P9016; P9047; U0003